=== PATIENT | female | born 1950 | race African-American/Black ===

== ENCOUNTER 2016-08-03 10:32 | Inpatient (IN) | payer OTHER ==
--- NOTE | 2016-08-03 11:27 | PDOC ---
History of Present Illness - History of Present Illness Initial Comments: 08/03/16 11:55 The patient is a 65 year old female with a past medical hx of HTN, hyperlipidemia, type 2 diabetes, s/p CVA, and asthma who presents to the ED complaining of intermittent chest pain for a few months. The patient describes her pain as a tightness localized to the substernal area radiating into her neck. She rates the pain as a 10/10 in intensity. She reports she was here for a pulmonary function test at 10:00 this morning and reported she was having chest pain. The patient was sent to the ED for further evaluation. She notes the pain has been constant since this morning and is currently having the pain while in the ED. She has not taken any Aspirin today. The patient reports the frequency of her pain does not increase with exertion. The patient notes no change in her symptoms with her nebulizer, albuterol, or MDI. She reports nausea, but denies diaphoresis, jaw pain, arm pain, SOB, fever, chills. Nuclear stress test 03/29/16 moderately sized, moderate intensity, interior/ apical ischemia, AF 86%. Two months ago the patient had a cardiac catheterization, no intervention was performed. PCP: Dr. Pace <Yanna Bailey - Last Filed: 08/03/16 12:29> <Mansoor Garay - Last Filed: 08/03/16 12:53> - General Chief Complaint: Chest Pain Stated Complaint: CHEST PAIN Time Seen by Provider: 08/03/16 11:26 Past History <Yanna Bailey - Last Filed: 08/03/16 12:29> - Past Medical History Anemia: Yes Asthma: Yes CVA: Yes (stroke/cerebral degeneration.) Dementia: No Diabetes: Yes (NIDDM) Dialysis: Yes GI Disorders: (STRICTURE OF ESOPHAGUS;GERD) Disorders: Yes (UROGENIC BLADDER) HTN: Yes Suicide Attempt (Hx): No Seizures: Yes (IN THE PAST) - Surgical History Orthopedic Surgery: Yes (ELBOW SURG; SPINAL AND NECK SURG) - Immunization History Immunization Up to Date: Yes - Psycho/Social/Smoking Cessation Hx Anxiety: No Suicidal Ideation: No Smoking History: Never smoked Have you smoked in the past 12 months: No Hx Alcohol Use: No Drug/Substance Use Hx: No Substance Use Type: None <Mansoor Garay - Last Filed: 08/03/16 12:53> - Past Medical History Allergies/Adverse Reactions: Allergies Allergy/AdvReac Type Severity Reaction Status Date / Time acetaminophen [From Vicodin] Allergy Verified 08/03/16 10:37 hydrocodone bitartrate Allergy Verified 08/03/16 10:37 [From Vicodin] oxycodone Allergy Verified 08/03/16 10:37 sulfabenzamide Allergy Verified 08/03/16 10:37 Home Medications: Ambulatory Orders Metformin HCl [Glucophage -] 500 mg PO BID #60 tablet 11/07/14 Pantoprazole Sodium [Protonix] 40 mg PO DAILY #30 tablet.dr 11/07/14 Verapamil HCl [Verapamil Sr] 240 mg PO DAILY #30 cap24h.pel 11/07/14 Gabapentin [Neurontin] 600 mg PO TID 03/23/15 Topiramate [Topamax] 100 mg PO BID 03/23/15 Hydrochlorothiazide [Hctz -] 12.5 mg PO DAILY 09/15/15 Albuterol 0.083% Nebulizer Luz Marina [Ventolin 0.083% Nebulizer Soln -] 1 neb NEB Q6H PRN 02/07/16 Ammonium Lactate Cream [Lac-Hydrin 12% Cream -] 1 applic TP BID 02/07/16 Biotin 1 mg PO DAILY 02/07/16 Cetirizine HCl [Zyrtec -] 10 mg PO DAILY 02/07/16 Ferrous Sulfate [Feosol] 325 mg PO DAILY 02/07/16 Ipratropium [place] [Atrovent] 15 ml NS BID 02/07/16 Lisinopril [Zestril] 2.5 mg PO DAILY 02/07/16 Multivitamin [Poly-Vitamin] 1 each PO DAILY 02/07/16 Sumatriptan Succinate [Imitrex -] 25 mg PO DAILY 02/07/16 Aspirin [ASA -] 81 mg PO DAILY 08/03/16 [place]-3 Fatty Acids [[place]-3] 1,000 mg PO DAILY 08/03/16 Review of Systems - Review of Systems Able to Perform ROS?: Yes Comments:: 08/03/16 11:56 CONSTITUTIONAL: Absent: fever, chills, diaphoresis, generalized weakness, malaise, loss of appetite HEENT: Absent: rhinorrhea, nasal congestion, throat pain, throat swelling, difficulty swallowing, mouth swelling, ear pain, eye pain, visual Changes CARDIOVASCULAR: +Chest pain (tightness). Absent: syncope, palpitations, irregular heart rate, lightheadedness, peripheral edema RESPIRATORY: Absent: cough, shortness of breath, dyspnea with exertion, orthopnea, wheezing, stridor, hemoptysis GASTROINTESTINAL: +Nausea. Absent: abdominal pain, abdominal distension, vomiting, diarrhea, constipation, melena, hematochezia GENITOURINARY: Absent: dysuria, frequency, urgency, hesitancy, hematuria, flank pain, genital pain MUSCULOSKELETAL: +Neck pain. Absent: jaw pain, arm pain, joint swelling SKIN: Absent: rash, itching, pallor HEMATOLOGIC/IMMUNOLOGIC: Absent: easy bleeding, easy bruising, lymphadenopathy, frequent infections ENDOCRINE: Absent: unexplained weight gain, unexplained weight loss, heat intolerance, cold intolerance NEUROLOGIC: Absent: headache, focal weakness or paresthesias, dizziness, unsteady gait, seizure, mental status changes, bladder or bowel incontinence PSYCHIATRIC: Absent: anxiety, depression, suicidal or homicidal ideation, hallucinations. <Yanna Bailey - Last Filed: 08/03/16 12:29> *Physical Exam - Vital Signs Last Vital Signs Temp Pulse Resp BP Pulse Ox 97.9 F 71 19 124/57 98 08/03/16 10:37 08/03/16 10:37 08/03/16 10:37 08/03/16 10:37 08/03/16 10:37 - Physical Exam Comments: 08/03/16 11:56 GENERAL: Well developed, well nourished. Awake and alert. In no acute distress. HEENT: Normocephalic, atraumatic. PERRLA, EOMI. No conjunctival pallor. Sclera are non- icteric. Moist mucous membranes. Oropharynx is clear. NECK: Supple. Full ROM. No JVD. Carotid pulses 2+ and symmetric, without bruits. No thyromegaly. No lymphadenopathy. CARDIOVASCULAR: Regular rate and rhythm. No murmurs, rubs, or gallops. Distal pulses are 2+ and symmetric. PULMONARY: +Fine crackles at the bilateral bases. No evidence of respiratory distress. No wheezing. ABDOMINAL: Soft. Non-tender. Non-distended. No rebound or guarding. No organomegaly. Normoactive bowel sounds. MUSCULOSKELETAL Normal range of motion at all joints. No bony deformities or tenderness. No CVA tenderness. EXTREMITIES: No cyanosis. No clubbing. No edema. No calf tenderness. SKIN: Warm and dry. Normal capillary refill. No rashes. No jaundice. NEUROLOGICAL: Alert, awake, appropriate. Cranial nerves 2-12 intact. No deficits to light touch and temperature in face, upper extremities and lower extremities. No motor deficits in the in face, upper extremities and lower extremities. PSYCHIATRIC: Cooperative. Good eye contact. Appropriate mood and affect. <Yanna Bailey - Last Filed: 08/03/16 12:29> - Vital Signs Last Vital Signs Temp Pulse Resp BP Pulse Ox 97.9 F 71 19 124/57 98 08/03/16 10:37 08/03/16 10:37 08/03/16 10:37 08/03/16 10:37 08/03/16 10:37 <Mansoor Garay - Last Filed: 08/03/16 12:53> Heart Score/ECG Review - History History: Moderately suspicious - Electrocardiogram EKG: Normal - Age Age: 45-65 - Risk Factors Risk Factors Heart Score: Yes Hx Hypercholesterolemia, Yes Hx Hypertension, Yes Hx Diabetes Based on the list above the patient has:: >/=3 risk factors or Hx atherosclerotic disease - Troponin Troponin: </= normal limit - Score Heart Score - Total: 4 - ECG Intrepretation Comment:: 08/03/16 12:03 Normal sinus rhythm at 66, normal axis, normal intervals, no ST changes <Mansoor Garay - Last Filed: 08/03/16 12:53> ED Treatment Course - LABORATORY CBC & Chemistry Diagram: 08/03/16 11:50 08/03/16 11:50 <Yanna Bailey - Last Filed: 08/03/16 12:29> - LABORATORY CBC & Chemistry Diagram: 08/03/16 11:50 08/03/16 11:50 <Mansoor Garay - Last Filed: 08/03/16 12:53> Medical Decision Making - Medical Decision Making 08/03/16 12:[address] Genao via answering service, awaiting call back. <Yanna Bailey - Last Filed: 08/03/16 12:29> - Medical Decision Making 03/09/17 11:39 The patient is well-appearing and in no acute distress She reports very clearly that she had chest pain when her EKG was obtained She currently has chest pain Will initiate chest pain order set Will administer aspirin Will administer sublingual nitroglycerin Will consult cardiology 08/03/16 12:12 Chest pain has completely resolved after sublingual nitroglycerin Will apply Nitropaste and follow carefully 08/03/16 12:52 She remains chest pain-free Labs noted, including negative troponin Clinical impression: Chest pain, possible acute coronary syndrome Case discussed in detail with admitting provider including history, physical exam and ancillary studies. Admitting physician has assumed care for the patient, will follow all pending diagnostics and will complete the evaluation and treatment. A portion of this note was documented by scribe services under my direction. I have reviewed the details of the note, within reason, and agree with the documentation with the following case summary and management plan written by me. <Mansoor Garay - Last Filed: 08/03/16 12:53> *DC/Admit/Observation/Transfer - Attestations Scribe Attestion: 08/03/16 11:55 Documentation prepared by Yanna Bailey, acting as paramedical aide for Mansoor Garay MD/DO. <Yanna Bailey - Last Filed: 08/03/16 12:29> - Discharge Dispostion Admit: Yes <Mansoor Garay - Last Filed: 08/03/16 12:53> Diagnosis at time of Disposition: Chest pain - Referrals Referrals: Karey Beard MD [Primary Care Provider] -
[2016-08-03] MEDS ORDERED: ASPIRIN 81 MG CHEWABLE TABLETS PO ONE (11:28)
[2016-08-03] MEDS ORDERED: NITROGLYCERIN SUBLINGUAL 1/150 0.4 MG TAB SL ONE (11:39)
[2016-08-03] MEDS ORDERED: ASPIRIN 81 MG CHEWABLE TABLETS ONE (11:59)
[2016-08-03] MEDS ORDERED: NITROGLYCERIN 2% OINTMENT - 1GM PACKET TD ONE (12:11)
[2016-08-03 12:16] LABS: MCH 30.8 pg (25.7-33.7); MEAN CELL VOLUME 93.2 fl (80-96); MEAN PLT VOLUME 7.9 fl (7.5-11.1); PLATELET COUNT 266 K/MM3 (134-434); RDW 13.8 % (11.6-15.6); WHITE BLOOD COUNT 6.6 K/mm3 (4.0-10.0)
[2016-08-03 12:27] LABS: ALBUMIN 4.2 g/dl (3.4-5.0); ANION GAP 10 (8-16); CALCIUM 9.7 mg/dL (8.5-10.1); CO2 25 mmol/L (21-32); GLUCOSE,RANDOM 77 mg/dL (74-106); MAGNESIUM 2.3 mg/dL (1.8-2.4); SGPT/ALT 27 U/L (12-78)
[2016-08-03 12:30] LABS: INR 1.03 (0.82-1.09); PROTHROMBIN TIME (PATIENT) 11.3 SEC (9.98-11.88)
[2016-08-03 12:32] LABS: ALK PHOS 55 U/L (45-117); BILIRUBIN,TOTAL 0.4 mg/dL (0.2-1.0); TOT PROT 8.1 g/dl (6.4-8.2); TROPONIN I < 0.02 ng/ml (0.00-0.05)
[2016-08-03 12:34] LABS: SGOT/AST 37 U/L (15-37)
[2016-08-03 14:01] LABS: PLATELET ESTIMATE ADEQUATE (NORMAL)
[2016-08-03] MEDS ORDERED: MAG HYDROX/AL HYDROX/SIMETH 355 ML ORAL.SUSP PO ONE (14:29)
--- NOTE | 2016-08-03 14:42 | CON.CARD ---
Consult Consult Specialty:: cardiology Reason for Consultation:: chest pain - History of Present Illness History of Present Illness: The patient is a 65 year old black female with a past medical hx of CVA (in her 20s), s/p cervical spine fusion, HTN, hyperlipidemia, DM,and asthma, who presents to the ED complaining of intermittent chest pain for a few months. The patient describes her pain as a tightness localized to the substernal area radiating into her neck. She rates the pain as a 10/10 in intensity. She reports she was here for a pulmonary function test at 10:00 this morning and reported she was having chest pain. The patient was sent to the ED for further evaluation. She notes the pain has been constant since this morning and is currently having the pain while in the ED. She has not taken any Aspirin today. The patient reports the frequency of her pain does not increase with exertion. The patient notes no change in her symptoms with her nebulizer, albuterol, or MDI. She has had a history of dysphagia (?hx esophageal stricture) for years. She reports nausea, but denies diaphoresis, jaw pain, arm pain, SOB, fever, chills. Nuclear stress test 03/29/16 moderately sized, moderate intensity, interior/ apical ischemia, AF 86%. Two months ago the patient had a cardiac catheterization; no intervention was performed (multi-vessel non-obstructive CAD). PCP: ELADIO Gibbs. 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 Cardio/Vascular: Yes: HTN Gastrointestinal: Yes: GERD Reproductive: Yes: Postmenopausal ...: No Endocrine: Yes: Diabetes Mellitus - Alcohol/Substance Use Hx Alcohol Use: No - Smoking History Smoking history: Never smoked Have you smoked in the past 12 months: No Home Medications - Allergies Allergies/Adverse Reactions: Allergies Allergy/AdvReac Type Severity Reaction Status Date / Time acetaminophen [From Vicodin] Allergy Verified 08/03/16 10:37 hydrocodone bitartrate Allergy Verified 08/03/16 10:37 [From Vicodin] oxycodone Allergy Verified 08/03/16 10:37 sulfabenzamide Allergy Verified 08/03/16 10:37 - Home Medications Home Medications: Ambulatory Orders Metformin HCl [Glucophage -] 500 mg PO BID #60 tablet 11/07/14 Pantoprazole Sodium [Protonix] 40 mg PO DAILY #30 tablet. 11/07/14 Verapamil HCl [Verapamil Sr] 240 mg PO DAILY #30 cap24h.pel 11/07/14 Gabapentin [Neurontin] 600 mg PO TID 03/23/15 Topiramate [Topamax] 100 mg PO BID 03/23/15 Hydrochlorothiazide [Hctz -] 12.5 mg PO DAILY 09/15/15 Albuterol 0.083% Nebulizer Luz Marina [Ventolin 0.083% Nebulizer Soln -] 1 neb NEB Q6H PRN 02/07/16 Ammonium Lactate Cream [Lac-Hydrin 12% Cream -] 1 applic TP BID 02/07/16 Biotin 1 mg PO DAILY 02/07/16 Cetirizine HCl [Zyrtec -] 10 mg PO DAILY 02/07/16 Ferrous Sulfate [Feosol] 325 mg PO DAILY 02/07/16 Ipratropium [place] [Atrovent] 15 ml NS BID 02/07/16 Lisinopril [Zestril] 2.5 mg PO DAILY 02/07/16 Multivitamin [Poly-Vitamin] 1 each PO DAILY 02/07/16 Sumatriptan Succinate [Imitrex -] 25 mg PO DAILY 02/07/16 Aspirin [ASA -] 81 mg PO DAILY 08/03/16 [place]-3 Fatty Acids [[place]-3] 1,000 mg PO DAILY 08/03/16 Review of Systems - Review of Systems Constitutional: reports: Weakness, Other (chest pain) Eyes: reports: No Symptoms HENT: reports: No Symptoms Neck: reports: No Symptoms Cardiovascular: reports: Chest Pain Respiratory: reports: Exercise Intolerance Gastrointestinal: reports: Dysphagia Musculoskeletal: reports: Decreased ROM, Muscle Weakness Neurological: reports: Pre-Existing Deficit, Unsteady Gait, Weakness Psychiatric: reports: Anxiety - Risk Factors Known Risk Factors: Yes: Age, Hypercholesterolemia, Hypertension, Prior IA /Emb Stroke, Race Vital Signs: Vital Signs Temperature 97.9 F 08/03/16 10:37 Pulse Rate 71 08/03/16 10:37 Respiratory Rate 19 08/03/16 10:37 Blood Pressure 124/57 08/03/16 10:37 O2 Sat by Pulse Oximetry (%) 98 08/03/16 10:37 Constitutional: Yes: Anxious Eyes: Yes: WNL HENT: Yes: WNL Neck: Yes: Decreased ROM Respiratory: Yes: Regular Gastrointestinal: Yes: Soft Renal/: No: Anuria Cardiovascular: Yes: Regular Rate and Rhythm JVD: No Carotid Bruit: No PMI: Non-Displaced Heart Sounds: Yes: S1, S2 Murmur: Yes: Systolic Murmur, Grade 2 Musculoskeletal: Yes: Joint Stiffness, Muscle Weakness Extremities: Yes: Cool Edema: No Peripheral Pulses WNL: No Peripheral Pulses: 1+ Left Doralis Pedis, 1+ Right Dorsalis Pedis Integumentary: No: Rash Neurological: Yes: Alert, Oriented, Weakness Psychiatric: Yes: Alert, Oriented - Other Data Labs, Other Data: INR, PTT INR 1.03 (0.82-1.09) 08/03/16 11:50 Laboratory Results - last 24 hr 08/03/16 08/03/16 08/03/16 11:50 11:50 11:50 WBC 6.6 RBC 3.93 Hgb 12.1 Hct 36.7 MCV 93.2 MCHC 33.0 RDW 13.8 Plt Count 266 MPV 7.9 Neutrophils % 17.0 L D Lymphocytes % 75.0 H D Monocytes % 3.0 L Eosinophils % 2.0 Basophils % 1.0 Differential Comment Manual diff done Reactive Lymphocytes 2 Platelet Estimate Adequate INR 1.03 Sodium 139 Potassium 5.0 Chloride 104 Carbon Dioxide 25 Anion Gap 10 BUN 21 H D Creatinine 1.0 D Creat Clearance w eGFR 55.82 Random Glucose 77 D Calcium 9.7 Magnesium 2.3 Total Bilirubin 0.4 AST 37 ALT 27 Alkaline Phosphatase 55 Creatine Kinase 434 H D CK-MB (CK-2) 6.441 H Troponin I < 0.02 Total Protein 8.1 Albumin 4.2 Abnormal Lab Results 08/03/16 08/03/16 11:50 11:50 Neutrophils % 17.0 L D Lymphocytes % 75.0 H D Monocytes % 3.0 L BUN 21 H D Creatine Kinase 434 H D CK-MB (CK-2) 6.441 H Ejection Fraction %: LVEF > or = 40 % Imaging - Results Chest X-ray: Image Reviewed (no acute pathology) EKG: Image Reviewed (normal sinus rhythm; no acute ST-T changes) Problem List - Problems (1) Chest pain Assessment/Plan: atypical presentation; constant, related to swallowing. Denies radiation to the back. non-obstructive CAD on 03/2016 coronary angiogram (no mention of aortic disease) . TNI 0.02; f/u serially. F/u lipids (with diabetes, will likely benefit from statin). EKG WNL. CXR: no acute pathology; no mediastinal widening. Hx cervical spine fusion. F/u GI workup: ?hx esophageal stricture. Consider CTA or MRA chest, though doubt aortic pathology. Code(s): R07.9 - CHEST PAIN, UNSPECIFIED (2) Esophageal stricture Assessment/Plan: F/u with GI. Code(s): K22.2 - ESOPHAGEAL OBSTRUCTION (3) Chronic abdominal pain Code(s): R10.9 - UNSPECIFIED ABDOMINAL PAIN G89.29 - OTHER CHRONIC PAIN (4) Chronic headache Code(s): R51 - HEADACHE (5) Diabetes mellitus Assessment/Plan: On lisinopril (CAD/CVA, HTN, DM). Code(s): E11.9 - TYPE 2 DIABETES MELLITUS WITHOUT COMPLICATIONS Qualifiers: Diabetes mellitus type: type 2 Diabetes mellitus complication status: without complication Diabetes mellitus fdc insulin use: without fdc use Qualified Code(s): E11.9 - Type 2 diabetes mellitus without complications (6) Head injury due to trauma Code(s): S09.90XA - UNSPECIFIED INJURY OF HEAD, INITIAL ENCOUNTER Qualifiers: Encounter type: initial encounter Qualified Code(s): S09.90XA - Unspecified injury of head, initial encounter (7) Hypertensive cardiovascular disease Code(s): I11.9 - HYPERTENSIVE HEART DISEASE WITHOUT HEART FAILURE Qualifiers: Heart failure presence: without heart failure Qualified Code(s): I11.9 - Hypertensive heart disease without heart failure
[2016-08-03] MEDS ORDERED: MAG HYDROX/AL HYDROX/SIMETH 30 ML UNIT-DOSE CUP ONE (14:59)
--- NOTE | 2016-08-03 15:55 | EKG ---
Test Reason : Blood Pressure : / mmHG Vent. Rate : 068 BPM Atrial Rate : 068 BPM P-R Int : 188 ms QRS Dur : 080 ms QT Int : 388 ms P-R-T Axes : 070 018 048 degrees QTc Int : 412 ms POOR DATA QUALITY, INTERPRETATION MAY BE ADVERSELY AFFECTED NORMAL SINUS RHYTHM NORMAL ECG WHEN COMPARED WITH ECG OF 08-FEB-2016 05:03, NO SIGNIFICANT CHANGE WAS FOUND Confirmed by INGA SCHAEFFER, DYLON ([id number]) on 08/03/2016 3:55:13 PM Referred By: Confirmed By:DYLON XIONG MD
--- NOTE | 2016-08-03 15:56 | HP ---
CHIEF COMPLAINT: Chest pain PCP: Dr. Pace HISTORY OF PRESENT ILLNESS: This is a 65 year old female with a significant PMH of HTN, HDL, nonobstructive CAD, DM type 2, S/P CVA, asthma, GERD, esophageal stricture who presents with chest pain. She has been complaining of chest pain for several months. It is intermittent, lasting 20 min., 10/10. It is located in mid chest, pressure like , radiating to the neck, associated with SOB and nausea.It is aggravated by lying flat and relieved with albuterol nebulizer. She had cardiac catheterization done in May 2016 but no intervention was done. Today she came to the hospital for PFT and her chest pain and SOB was much worse so she was brought to ED. The pt states that her pain is often associated with eating. She denies dizziness, cough, fever, but states that she has chills now. She denies dysuria, increased frequency, urgency, vomiting, diarrhea. ER course was notable for: (1)EKG (2)CK and CK MGB (3)BUN PAST MEDICAL HISTORY: HTN, HDL, CAD, DM type 2, S/P CVA in her 20s, asthma, GERD, esophageal stricture , chronic migraines, urogenic bladder PAST SURGICAL HISTORY: hysterectomy Social History: Smoking:Denies Alcohol:Denies Drugs:Denies Family History: Mother: Lung Ca Father; Stroke Brother; Stroke Brother: Brain aneurysm Allergies acetaminophen [From Vicodin] Allergy (Verified 08/03/16 10:37) unknown hydrocodone bitartrate [From Vicodin] Allergy (Verified 08/03/16 10:37) unknown oxycodone Allergy (Verified 08/03/16 10:37) head aches sulfabenzamide Allergy (Verified 08/03/16 10:37) hives HOME MEDICATIONS: Home Medications Medication Instructions Recorded Metformin HCl [Glucophage -] 500 mg PO BID #60 tablet 11/07/14 Pantoprazole Sodium [Protonix] 40 mg PO DAILY #30 tablet. 11/07/14 Verapamil HCl [Verapamil Sr] 240 mg PO DAILY #30 cap24h.pel 11/07/14 Gabapentin [Neurontin] 600 mg PO TID 03/23/15 Topiramate [Topamax] 100 mg PO BID 03/23/15 Hydrochlorothiazide [Hctz -] 12.5 mg PO DAILY 04/20/16 Albuterol 0.083% Nebulizer Luz [place] 1 neb NEB Q6H PRN 02/07/16 [Ventolin 0.083% Nebulizer Soln -] Ammonium Lactate Cream [Lac-Hydrin 1 applic TP BID 02/07/16 12% Cream -] Biotin 1 mg PO DAILY 02/07/16 Cetirizine HCl [Zyrtec -] 10 mg PO DAILY 02/07/16 Ferrous Sulfate [Feosol] 325 mg PO DAILY 02/07/16 Ipratropium [place] [Atrovent] 15 ml NS BID 02/07/16 Lisinopril [Zestril] 2.5 mg PO DAILY 02/07/16 Multivitamin [Poly-Vitamin] 1 each PO DAILY 02/07/16 Sumatriptan Succinate [Imitrex -] 25 mg PO DAILY 02/07/16 Aspirin [ASA -] 81 mg PO DAILY 08/03/16 [place]-3 Fatty Acids [[place]-3] 1,000 mg PO DAILY 08/03/16 REVIEW OF SYSTEMS CONSTITUTIONAL: chills Absent: fever, diaphoresis, generalized weakness, malaise, loss of appetite, weight change HEENT: Absent: rhinorrhea, nasal congestion, throat pain, difficulty swallowing, visual changes CARDIOVASCULAR: chest pain, Absent: syncope, palpitations, irregular heart rate, lightheadedness, peripheral edema RESPIRATORY: Absent: cough, shortness of breath, dyspnea with exertion, orthopnea, wheezing, stridor, hemoptysis GASTROINTESTINAL: nausea Absent: abdominal pain, abdominal distension, vomiting, diarrhea, constipation, melena, hematochezia GENITOURINARY: Absent: dysuria, frequency, urgency, hesitancy, hematuria, flank pain, genital pain MUSCULOSKELETAL: Absent: myalgia, arthralgia, joint swelling, back pain, neck pain SKIN: Absent: rash, itching, pallor ENDOCRINE: Absent: unexplained weight gain, unexplained weight loss, heat intolerance, cold intolerance NEUROLOGIC: Absent: headache, focal weakness or paresthesias, dizziness, unsteady gait, seizure, mental status changes, bladder or bowel incontinence PSYCHIATRIC: Absent: anxiety, depression PHYSICAL EXAMINATION GENERAL: Awake, alert, and fully oriented, in no acute distress. HEAD: Normal with no signs of trauma. EYES: Pupils equal, round and reactive to light, extraocular movements intact, sclera anicteric, conjunctiva clear. No lid lag. EARS, NOSE, THROAT: Ears normal, nares patent, oropharynx clear without exudates. Moist mucous membranes. NECK: Normal range of motion, supple without lymphadenopathy, JVD, or masses. LUNGS: Breath sounds equal, clear to auscultation bilaterally. No wheezes, and no crackles. No accessory muscle use. HEART: Regular rate and rhythm, normal S1 and S2 without murmur, rub or gallop. ABDOMEN: Soft, nontender, not distended, normoactive bowel sounds, no guarding, no rebound, no masses. No hepatomegaly or splenomegaly. MUSCULOSKELETAL: Normal range of motion at all joints. No CVA tenderness. UPPER EXTREMITIES: warm, No peripheral edema. LOWER EXTREMITIES: warm, No peripheral edema. NEUROLOGICAL: speaking slowly, no facial asymmetry, no tongue deviation, motor: 5/5 in all 4 extremities, sensation intact. PSYCHIATRIC: Cooperative. Good eye contact. Appropriate mood and affect. SKIN: Warm, dry, normal turgor, no rashes, vertical scar in lower abdomen. ASSESSMENT/PLAN: This is a 65 year old female with a significant PMH of HTN, HDL, nonobstructive CAD, DM type 2, S/P CVA, asthma, GERD, esophageal stricture who presents with chest pain. She has been complaining of chest pain for several months. It is intermittent, lasting 20 min., associated with SOB, nausea. It is located in mid chest, radiating to the neck. It is aggravated by lying flat and relieved with albuterol nebulizer. Chest pain -possible ACS/Asthma exacerbation -HEART score 4 -will follow Dr. Genao's recommendation -telemetry monitoring -monitor troponins -minitor vitals -cont ASA, Lisinopril and Verapamil -Oxygen Suppl. Asthma; -continue nebulizers HTN: cont home meds: Verapamil, HCTZ, Lisinopril DM type 2: -RISS -BGM -hold Metformin HDL: cont omega 3 Chronic headaches: cont Topiramate 100 mg PO BID F/E/N: no/No changes/Low Na Disposition: observation tele Please confirm the medication list. 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 - New Patient This patient is new to me today: Yes Date on this admission: 08/04/16 - Critical Care Critical Care patient: No
--- NOTE | 2016-08-03 16:06 | PN ---
Teaching Attending Note Name of Resident: Virgen Ruiz ATTENDING PHYSICIAN STATEMENT I saw and evaluated the patient. I reviewed the resident's note and discussed the case with the resident. I agree with the resident's findings and plan as documented. SUBJECTIVE: This is a 65-year-old woman with a history of non-obstructive CAD, HTN, hyperlipdemia, type 2 DM, asthma, CVA, GERD who comes to the ER today complaining of tightness in her chest with nausea and shortness of breath on and off for several weeks. She was scheduled for PFTs today, and while there, she complained of chest pain, so she was sent to the ER. Her institutional research coordinator is Dr. Corey and her livestock speculator is Dr. Genao. OBJECTIVE: Vital Signs Period Temp Pulse Resp BP Sys/Hewitt Pulse Ox Last 24 Hr 97.9 F 71 19 124/57 98 HEART: S1 S2, RRR LUNGS: Clear ABDOMEN: Soft, non-tender, non-distended, normal BS EXTREMITIES: No edema ASSESSMENT AND PLAN: 1. Chest pain in a patient with non-obstructive CAD by catheterization 2 months ago - Observe on telemetry - Continue aspirin, Verapamil, Lisinopril - Serial troponins - Cardiology consult 2. Hypertension - Continue Verapamil, Lisinopril, HCTZ 3. Hyperlipidemia - Continue omega-3 4. Type 2 diabetes mellitus - Hold metformin - Fingersticks with Novolog sliding scale 5. Asthma - Albuterol nebs as needed
[2016-08-03] MEDS ORDERED: ALBUTEROL SO4 0.083% IH SOL 2.5 MG/3 ML VIAL.NEB. NEB PRN (17:55)
[2016-08-03 18:20] VITALS: BMI 27.1
[2016-08-03] MEDS ORDERED: INFLUENZA VACCINE 45 MCG/0.5 ML (MDV 16-17) IM ONE (18:30)
[2016-08-03] MEDS ORDERED: TOPIRAMATE 100 MG TABLET PO ONE (18:35)
--- NOTE | 2016-08-03 21:16 | CONSULT ---
Consult Consult Specialty:: Pulm/CCM Reason for Consultation:: chest pain - History of Present Illness Chief Complaint: chest pain History of Present Illness: This is a 65 yo woman HTN, IDDM c/b neuropathy, HL, CVA, asthma and esophageal stricture with chronic chest pain who presented from pulmonary clinic with complaints of 10/10 substernal chest pain radiating to her neck. Per patient she has been experiencing this intermittent recurrent chest pain for several months. She felt it may be related to esophageal stricture given increased trouble with swallowing but the pain and eating ant always temporally related. On day of admission she was being seen in pulmonary clinic for planned PFTs when she described this recurrent chest pain and was sent to the ED for evaluation. In the ED she ? nausea, CP and RAY. Denied: diaphoresis, jaw pain, arm pain, SOB, fever, chills. Per patient she recently had a cardiac cath that did not require intervention. Labs notable for negative troponin, normal WBC. CXR: clear. EKG: NSR. She was admitted to ICU for telemetry monitoring. Patient seen and examined in the ICU. VSS: HR 84 RRR, BP 100/65, RR 14 RA sat 96 %. On exam ? 6/10 pain that has improved from admission with morphine. - History Source History Provided By: Patient, Medical Record - Past Medical History DATAPOWER DEVELOPER: Yes: CVA Cardio/Vascular: Yes: HTN Pulmonary: Yes: Asthma Gastrointestinal: Yes: GERD, Other (esophageal stricture) ...: No Endocrine: Yes: Diabetes Mellitus - Alcohol/Substance Use Hx Alcohol Use: No - Smoking History Smoking history: Never smoked Have you smoked in the past 12 months: No Home Medications - Allergies Allergies/Adverse Reactions: Allergies Allergy/AdvReac Type Severity Reaction Status Date / Time acetaminophen [From Vicodin] Allergy Verified 08/03/16 10:37 hydrocodone bitartrate Allergy Verified 08/03/16 10:37 [From Vicodin] oxycodone Allergy Verified 08/03/16 10:37 sulfabenzamide Allergy Verified 08/03/16 10:37 - Home Medications Home Medications: Ambulatory Orders Metformin HCl [Glucophage -] 500 mg PO BID #60 tablet 11/07/14 Pantoprazole Sodium [Protonix] 40 mg PO DAILY #30 tablet. 11/07/14 Verapamil HCl [Verapamil Sr] 240 mg PO DAILY #30 cap24h.pel 11/07/14 Gabapentin [Neurontin] 600 mg PO TID 03/23/15 Topiramate [Topamax] 100 mg PO BID 03/23/15 Hydrochlorothiazide [Hctz -] 12.5 mg PO DAILY 09/15/15 Albuterol 0.083% Nebulizer [place] [Ventolin 0.083% Nebulizer Soln -] 1 neb NEB Q6H PRN 02/07/16 Ammonium Lactate Cream [Lac-Hydrin 12% Cream -] 1 applic TP BID 02/07/16 Biotin 1 mg PO DAILY 02/07/16 Cetirizine HCl [Zyrtec -] 10 mg PO DAILY 02/07/16 Ferrous Sulfate [Feosol] 325 mg PO DAILY 02/07/16 Ipratropium [place] [Atrovent] 15 ml NS BID 02/07/16 Lisinopril [Zestril] 2.5 mg PO DAILY 02/07/16 Multivitamin [Poly-Vitamin] 1 each PO DAILY 02/07/16 Sumatriptan Succinate [Imitrex -] 25 mg PO DAILY 02/07/16 Aspirin [ASA -] 81 mg PO DAILY 08/03/16 [place]-3 Fatty Acids [[place]-3] 1,000 mg PO DAILY 08/03/16 Review of Systems - Review of Systems Constitutional: reports: No Symptoms ( intermittent neck pain) Cardiovascular: reports: Chest Pain Respiratory: reports: No Symptoms Gastrointestinal: reports: Nausea Genitourinary: reports: No Symptoms Physical Exam Vital Signs: Vital Signs Temperature 97.5 F L 08/03/16 18:09 Pulse Rate 68 08/03/16 18:09 Respiratory Rate 16 08/03/16 20:10 Blood Pressure 133/65 08/03/16 18:09 O2 Sat by Pulse Oximetry (%) 100 08/03/16 20:10 Current Medications Albuterol Sulfate (Ventolin 0.083% Nebulizer Soln -) 1 amp NEB Q6H PRN PRN Reason: WHEEZING Aspirin (Asa -) 81 mg PO DAILY KIM Gabapentin (Neurontin -) 600 mg PO TID KIM Hydrochlorothiazide (Hctz -) 12.5 mg PO DAILY KIM Lisinopril (Prinivil) 2.5 mg PO DAILY KIM Non-Formulary Medication (Ipratropium [place] [Atrovent]) 15 ml NS BID KIM Pantoprazole Sodium (Protonix -) 40 mg PO DAILY KIM Sumatriptan Succinate (Imitrex -) 25 mg PO DAILY PRN PRN Reason: MIGRAINE Topiramate (Topamax -) 50 mg PO BID KIM Verapamil HCl (Calan Sr -) 240 mg PO DAILY KIM Constitutional: Yes: No Distress, Calm Eyes: Yes: Conjunctiva Clear, EOM Intact HENT: Yes: Normocephalic Cardiovascular: Yes: Regular Rate and Rhythm, S1, S2 Respiratory: Yes: CTA Bilaterally Gastrointestinal: Yes: Normal Bowel Sounds, Soft Extremities: Yes: WNL Edema: No Neurological: Yes: Alert, Oriented Labs: CBCD WBC 6.6 K/mm3 (4.0-10.0) 08/03/16 11:50 RBC 3.93 M/mm3 (3.60-5.2) 08/03/16 11:50 Hgb 12.1 GM/dL (10.7-15.3) 08/03/16 11:50 Hct 36.7 % (32.4-45.2) 08/03/16 11:50 MCV 93.2 fl (80-96) 08/03/16 11:50 MCHC 33.0 g/dl (32.0-36.0) 08/03/16 11:50 RDW 13.8 % (11.6-15.6) 08/03/16 11:50 Plt Count 266 K/MM3 (134-434) 08/03/16 11:50 MPV 7.9 fl (7.5-11.1) 08/03/16 11:50 CMP Sodium 139 mmol/L (136-145) 08/03/16 11:50 Potassium 5.0 mmol/L (3.5-5.1) 08/03/16 11:50 Chloride 104 mmol/L (98-107) 08/03/16 11:50 Carbon Dioxide 25 mmol/L (21-32) 08/03/16 11:50 Anion Gap 10 (8-16) 08/03/16 11:50 BUN 21 mg/dL (7-18) H D 08/03/16 11:50 Creatinine 1.0 mg/dL (0.55-1.02) D 08/03/16 11:50 Creat Clearance w eGFR 55.82 (>60) 08/03/16 11:50 Random Glucose 77 mg/dL (74-106) D 08/03/16 11:50 Calcium 9.7 mg/dL (8.5-10.1) 08/03/16 11:50 Total Bilirubin 0.4 mg/dL (0.2-1.0) 08/03/16 11:50 AST 37 U/L (15-37) 08/03/16 11:50 ALT 27 U/L (12-78) 08/03/16 11:50 Alkaline Phosphatase 55 U/L (45-117) 08/03/16 11:50 Total Protein 8.1 g/dl (6.4-8.2) 08/03/16 11:50 Albumin 4.2 g/dl (3.4-5.0) 08/03/16 11:50 CARDIAC ENZYMES Creatine Kinase 434 IU/L (26-192) H D 08/03/16 11:50 Troponin I < 0.02 ng/ml (0.00-0.05) 08/03/16 11:50 Imaging - Results Chest X-ray: Report Reviewed, Image Reviewed EKG: Report Reviewed, Image Reviewed Problem List - Problems (1) Chest pain Code(s): R07.9 - CHEST PAIN, UNSPECIFIED (2) Chronic abdominal pain Code(s): R10.9 - UNSPECIFIED ABDOMINAL PAIN G89.29 - OTHER CHRONIC PAIN (3) Chronic headache Code(s): R51 - HEADACHE (4) Diabetes mellitus Code(s): E11.9 - TYPE 2 DIABETES MELLITUS WITHOUT COMPLICATIONS Qualifiers: Diabetes mellitus type: type 2 Diabetes mellitus complication status: without complication Diabetes mellitus solar energy sales specialist insulin use: without solar energy sales specialist use Qualified Code(s): E11.9 - Type 2 diabetes mellitus without complications (5) Esophageal stricture Code(s): K22.2 - ESOPHAGEAL OBSTRUCTION Assessment/Plan a/p: 65 yo woman HTN, IDDM c/b neuropathy, CVA, asthma p/w recurrent intermittent chronic CP of unclear etiology: CV vs GI. Does not appear to have exacerbation of asthma at this time. -telemonitoring -cardiology following -GISSELLE: troponin x3 -cont ASA and antihypertensives -possible GI etiology of chronic CP given h/o esophageal stricture, consider upper GI series -glucose control -DVT prophylaxis -PPI given h/o GERD -incentive geri -albuterol prn for wheeze -pain control: home gabapentin for DM related neuropathy Sandip ACNP Pulm/CCM CCT: 35
[2016-08-03] MEDS ORDERED: IPRATROPIUM BROMIDE NS SCH (22:00)
[2016-08-03] MEDS ORDERED: TOPIRAMATE 100 MG TABLET PO SCH ×2 (22:00)
[2016-08-03] MEDS: GABAPENTIN 300 MG CAPSULE (FP) PO SCH (23:25)
[2016-08-03] MEDS: SUMAtriptan SUCCINATE 25 MG TABLET PO PRN (23:56)
[2016-08-04 05:48] LABS: BASOPHIL 1.2 % (0-2.0); EOSINOPHIL 2.7 % (0-4.5); MCH 31.2 pg (25.7-33.7); MCHC 33.9 g/dl (32.0-36.0); NEUTROPHILS 36.9 % (42.8-82.8); PLATELET COUNT 287 K/MM3 (134-434); RDW 13.3 % (11.6-15.6); WHITE BLOOD COUNT 4.8 K/mm3 (4.0-10.0)
[2016-08-04] MEDS ORDERED: PT OWN MED DRAWER 7, Y5N ONE ×2 (05:57→08:29)
[2016-08-04] MEDS: SUMAtriptan SUCCINATE 25 MG TABLET PO PRN (05:58)
[2016-08-04] MEDS: GABAPENTIN 300 MG CAPSULE (FP) PO SCH ×3 (05:58→22:38)
[2016-08-04 06:14] LABS: CALCIUM 9.5 mg/dL (8.5-10.1); CHOLESTEROL 189 mg/dL (50-200); LDL CHOLESTEROL (ONLY SJRH) 105 mg/dL (5-100)
[2016-08-04] MEDS ORDERED: METOPROLOL TARTRATE 25 MG TABLET (FP) ONE (08:31)
[2016-08-04] MEDS: ASPIRIN 81 MG CHEWABLE TABLETS PO SCH (09:20)
[2016-08-04] MEDS: VERAPAMIL HCL 240 MG E.R. TABLET (FP) PO SCH (09:20)
[2016-08-04] MEDS: PANTOPRAZOLE 40 MG TABLET (FP) PO SCH (09:21)
[2016-08-04] MEDS: TOPIRAMATE 100 MG TABLET PO SCH ×3 (09:21→23:38)
[2016-08-04] MEDS: HYDROCHLOROTHIAZIDE 12.5 MG CAPSULE (FP) PO SCH (09:21)
[2016-08-04] MEDS: LISINOPRIL 5 MG TABLET (FP) PO SCH (09:21)
--- NOTE | 2016-08-04 09:44 | EKG ---
Test Reason : Blood Pressure : / mmHG Vent. Rate : 081 BPM Atrial Rate : 081 BPM P-R Int : 192 ms QRS Dur : 084 ms QT Int : 370 ms P-R-T Axes : 074 017 048 degrees QTc Int : 429 ms NORMAL SINUS RHYTHM NORMAL ECG WHEN COMPARED WITH ECG OF 03-AUG-2016 10:50, NO SIGNIFICANT CHANGE WAS FOUND Confirmed by FRANK BEAULIEU MD ([id number]) on 08/04/2016 9:43:39 AM Referred By: Confirmed By:FRANK BEAULIEU MD
[2016-08-04 11:02] LABS: ANION GAP 7 (8-16); CALCIUM 9.6 mg/dL (8.5-10.1); CO2 28 mmol/L (21-32); GLUCOSE,RANDOM 154 mg/dL (74-106); MAGNESIUM 2.1 mg/dL (1.8-2.4); PHOSPHOROUS 3.2 mg/dL (2.5-4.9)
[2016-08-04 11:04] LABS: TROPONIN I < 0.02 ng/ml (0.00-0.05)
[2016-08-04 12:46] LABS: TROPONIN I < 0.02 ng/ml (0.00-0.05)
--- NOTE | 2016-08-04 13:08 | PN ---
Progress Note (short form) - Note Progress Note: Patient seen and examined in the ICU. Awake and alert. CP seems to have resolved. No SOB. Suspicion of esophageal spasm being the etiology of her symptoms. Intake & Output 08/01/16 08/02/16 08/03/16 08/04/16 23:59 23:59 23:59 23:59 Intake Total 200 200 Output Total 800 Balance 200 -600 Weight 158 lb 8.198 oz Last Vital Signs Temp Pulse Resp BP Pulse Ox 97.6 F 88 26 H 137/87 100 08/04/16 00:47 08/04/16 09:17 08/04/16 09:17 08/04/16 09:17 08/03/16 20:10 Active Medications Albuterol Sulfate (Ventolin 0.083% Nebulizer Soln -) 1 amp NEB Q6H PRN PRN Reason: WHEEZING Aspirin (Asa -) 81 mg PO DAILY [facility] Last Admin: 08/04/16 09:20 Dose: 81 mg Gabapentin (Neurontin -) 600 mg PO TID [facility] Last Admin: 08/04/16 05:58 Dose: 600 mg Hydrochlorothiazide (Hctz -) 12.5 mg PO DAILY [facility] Last Admin: 08/04/16 09:21 Dose: 12.5 mg Insulin Aspart (Novolog Vial Sliding Scale -) 1 vial SQ ACHS [facility] PRN Reason: Protocol Lisinopril (Prinivil) 2.5 mg PO DAILY [facility] Last Admin: 08/04/16 09:21 Dose: 2.5 mg Non-Formulary Medication (Ipratropium [place] [Atrovent]) 15 ml NS BID [facility] Pantoprazole Sodium (Protonix -) 40 mg PO DAILY [facility] Last Admin: 08/04/16 09:21 Dose: 40 mg Sumatriptan Succinate (Imitrex -) 25 mg PO DAILY PRN PRN Reason: MIGRAINE Last Admin: 08/04/16 05:58 Dose: 25 mg Topiramate (Topamax -) 50 mg PO BID [facility] Last Admin: 08/04/16 09:21 Dose: 50 mg Verapamil HCl (Calan Sr -) 240 mg PO DAILY [facility] Last Admin: 08/04/16 09:20 Dose: 240 mg Constitutional: Yes: Awake and alert, NAD Eyes: Yes: Conjunctiva Clear, EOM Intact HENT: Yes: Normocephalic Cardiovascular: Yes: Regular Rate and Rhythm, S1, S2 Respiratory: Yes: CTA Bilaterally Gastrointestinal: Yes: Normal Bowel Sounds, Soft Extremities: Yes: WNL Edema: No Neurological: Yes: Alert, Oriented Labs: Laboratory Results - last 24 hr 08/03/16 08/04/16 08/04/16 11:50 00:18 05:00 WBC 4.8 RBC 3.59 L Hgb 11.2 Hct 33.0 MCV 92.0 MCHC 33.9 RDW 13.3 Plt Count 287 MPV 8.0 Neutrophils % 17.0 L D 36.9 L D Lymphocytes % 75.0 H D 49.6 H D Monocytes % 3.0 L 9.6 D Eosinophils % 2.0 2.7 Basophils % 1.0 1.2 Differential Comment Manual diff done Reactive Lymphocytes 2 Platelet Estimate Adequate Sodium Potassium Chloride Carbon Dioxide Anion Gap BUN Creatinine Random Glucose Calcium Creatine Kinase Troponin I < 0.02 Triglycerides Cholesterol Total LDL Cholesterol HDL Cholesterol 08/04/16 08/04/16 08/04/16 05:00 05:00 11:59 WBC RBC Hgb Hct MCV MCHC RDW Plt Count MPV Neutrophils % Lymphocytes % Monocytes % Eosinophils % Basophils % Differential Comment Reactive Lymphocytes Platelet Estimate Sodium 142 Potassium 4.2 Chloride 106 Carbon Dioxide 26 Anion Gap 10 BUN 20 H Creatinine 1.0 Random Glucose 102 D Calcium 9.5 Creatine Kinase 299 H D Troponin I < 0.02 Triglycerides 67 Cholesterol 189 Total LDL Cholesterol 105 H HDL Cholesterol 78 H CXR: Clear Problem List - Problems (1) Chest pain Code(s): R07.9 - CHEST PAIN, UNSPECIFIED (2) Chronic abdominal pain Code(s): R10.9 - UNSPECIFIED ABDOMINAL PAIN G89.29 - OTHER CHRONIC PAIN (3) Chronic headache Code(s): R51 - HEADACHE (4) Diabetes mellitus Code(s): E11.9 - TYPE 2 DIABETES MELLITUS WITHOUT COMPLICATIONS Qualifiers: Diabetes mellitus type: type 2 Diabetes mellitus complication status: without complication Diabetes mellitus intermission coordinator insulin use: without residential use Qualified Code(s): E11.9 - Type 2 diabetes mellitus without complications (5) Esophageal stricture Code(s): K22.2 - ESOPHAGEAL OBSTRUCTION Assessment/Plan GI consult -> Patient is known to Dr Pat O2 as needed BD TX PRN Continue current meds VTE prophylaxis PPI ordered Incentive spirometry Telemetry monitoring Dr Zapata
--- NOTE | 2016-08-04 14:18 | PN ---
Progress Note, Physician History of Present Illness: The patient is a 65 year old black female with a past medical hx of CVA (in her 20s), s/p cervical spine fusion, HTN, hyperlipidemia, DM,and asthma, who presents to the ED complaining of intermittent chest pain for a few months. The patient describes her pain as a tightness localized to the substernal area radiating into her neck. She rates the pain as a 10/10 in intensity. She reports she was here for a pulmonary function test at 10:00 this morning and reported she was having chest pain. The patient was sent to the ED for further evaluation. She notes the pain has been constant since this morning and is currently having the pain while in the ED. She has not taken any Aspirin today. The patient reports the frequency of her pain does not increase with exertion. The patient notes no change in her symptoms with her nebulizer, albuterol, or MDI. She has had a history of dysphagia (?hx esophageal stricture) for years. She reports nausea, but denies diaphoresis, jaw pain, arm pain, SOB, fever, chills. Nuclear stress test 03/29/16 moderately sized, moderate intensity, interior/ apical ischemia, AF 86%. Two months ago the patient had a cardiac catheterization; no intervention was performed (multi-vessel non-obstructive CAD). PCP: ELADIO Gibbs. - Current Medication List Current Medications: Active Medications Albuterol Sulfate (Ventolin 0.083% Nebulizer Soln -) 1 amp NEB Q6H PRN PRN Reason: WHEEZING Aspirin (Asa -) 81 mg PO DAILY [facility] Last Admin: 08/04/16 09:20 Dose: 81 mg Gabapentin (Neurontin -) 600 mg PO TID KIM Last Admin: 08/04/16 05:58 Dose: 600 mg Hydrochlorothiazide (Hctz -) 12.5 mg PO DAILY [facility] Last Admin: 08/04/16 09:21 Dose: 12.5 mg Insulin Aspart (Novolog Vial Sliding Scale -) 1 vial SQ ACHS [facility] PRN Reason: Protocol Lisinopril (Prinivil) 2.5 mg PO DAILY [facility] Last Admin: 08/04/16 09:21 Dose: 2.5 mg Non-Formulary Medication (Ipratropium [place] [Atrovent]) 15 ml NS BID [facility] Pantoprazole Sodium (Protonix -) 40 mg PO DAILY [facility] Last Admin: 08/04/16 09:21 Dose: 40 mg Sumatriptan Succinate (Imitrex -) 25 mg PO DAILY PRN PRN Reason: MIGRAINE Last Admin: 08/04/16 05:58 Dose: 25 mg Topiramate (Topamax -) 50 mg PO BID [facility] Last Admin: 08/04/16 09:21 Dose: 50 mg Verapamil HCl (Calan Sr -) 240 mg PO DAILY [facility] Last Admin: 08/04/16 09:20 Dose: 240 mg - Objective Vital Signs: Vital Signs Temperature 97.6 F 08/04/16 00:47 Pulse Rate 88 08/04/16 09:17 Respiratory Rate 26 H 08/04/16 10:00 Blood Pressure 137/87 08/04/16 09:17 O2 Sat by Pulse Oximetry (%) 100 08/03/16 20:10 Labs: CBC, BMP 08/04/16 05:00 INR, PTT INR 1.03 (0.82-1.09) 08/03/16 11:50 Problem List - Problems (1) Chest pain Assessment/Plan: atypical presentation; constant, related to swallowing. Denies radiation to the back. non-obstructive CAD on 03/2016 coronary angiogram (no mention of aortic disease) . TNI 0.02; f/u serially. EKG WNL. CXR: no acute pathology; no mediastinal widening. Hx cervical spine fusion. F/u GI workup: ?hx esophageal stricture. Consider CTA or MRA chest, though doubt aortic pathology. Code(s): R07.9 - CHEST PAIN, UNSPECIFIED (2) Esophageal stricture Code(s): K22.2 - ESOPHAGEAL OBSTRUCTION (3) Chronic abdominal pain Code(s): R10.9 - UNSPECIFIED ABDOMINAL PAIN G89.29 - OTHER CHRONIC PAIN (4) Chronic headache Code(s): R51 - HEADACHE (5) Diabetes mellitus Code(s): E11.9 - TYPE 2 DIABETES MELLITUS WITHOUT COMPLICATIONS Qualifiers: Diabetes mellitus type: type 2 Diabetes mellitus complication status: without complication Diabetes mellitus residential insulin use: without vermin exterminator use Qualified Code(s): E11.9 - Type 2 diabetes mellitus without complications (6) Head injury due to trauma Code(s): S09.90XA - UNSPECIFIED INJURY OF HEAD, INITIAL ENCOUNTER Qualifiers: Encounter type: initial encounter Qualified Code(s): S09.90XA - Unspecified injury of head, initial encounter (7) Hypertensive cardiovascular disease Code(s): I11.9 - HYPERTENSIVE HEART DISEASE WITHOUT HEART FAILURE Qualifiers: Heart failure presence: without heart failure Qualified Code(s): I11.9 - Hypertensive heart disease without heart failure
[2016-08-04] MEDS ORDERED: oxyCODONE HCL 5 MG TABLET PO PRN (14:39)
--- NOTE | 2016-08-04 15:19 | PN ---
Physical Exam: SUBJECTIVE: Patient seen and examined Patient resting in bed, anxious about possibility of heart condition, crying. reassured patient. No acute events. afebrill and hemodynamically stable. states she keeps having chest pain after meals. States she has seen Dr Pat for EGD a few months ago, was told she has a stricture that can be treated with botox. Denies sob, palpitations, weight gain, LOC or LE edema. OBJECTIVE: Vital Signs Period Temp Pulse Resp BP Sys/Hewitt Pulse Ox Last 24 Hr 97.5 F-97.8 F 62-88 15-26 109-142/52-87 99-100 GENERAL: The patient is awake, alert, and fully oriented, anxious HEAD: Normal with no signs of trauma. EYES: PERRL, extraocular movements intact, sclera anicteric, conjunctiva clear. ENT: moist mucous membranes. NECK: supple no jvd LUNGS: Breath sounds equal, clear to auscultation bilaterally, no wheezes, no crackles, no accessory muscle use. HEART: Regular rate and rhythm, S1, S2 ABDOMEN: Soft, nontender, nondistended, normoactive bowel sounds EXTREMITIES: 2+ pulses, no edema. NEUROLOGICAL: Cranial nerves II through XII grossly intact. Normal speech, gait not observed. PSYCH: Normal mood, normal affect. SKIN: Warm, dry Laboratory Results - last 24 hr 08/04/16 08/04/16 08/04/16 00:18 05:00 05:00 WBC 4.8 RBC 3.59 L Hgb 11.2 Hct 33.0 MCV 92.0 MCHC 33.9 RDW 13.3 Plt Count 287 MPV 8.0 Neutrophils % 36.9 L D Lymphocytes % 49.6 H D Monocytes % 9.6 D Eosinophils % 2.7 Basophils % 1.2 Sodium 142 Potassium 4.2 Chloride 106 Carbon Dioxide 26 Anion Gap 10 BUN 20 H Creatinine 1.0 POC Glucometer Random Glucose 102 D Calcium 9.5 Phosphorus Magnesium Creatine Kinase CK-MB (CK-2) Troponin I < 0.02 Triglycerides Cholesterol Total LDL Cholesterol HDL Cholesterol 08/04/16 08/04/16 08/04/16 05:00 09:54 10:49 WBC RBC Hgb Hct MCV MCHC RDW Plt Count MPV Neutrophils % Lymphocytes % Monocytes % Eosinophils % Basophils % Sodium 142 Potassium 4.3 Chloride 107 Carbon Dioxide 28 Anion Gap 7 L BUN 20 H Creatinine 1.0 POC Glucometer [phone] Random Glucose 154 H D Calcium 9.6 Phosphorus 3.2 Magnesium 2.1 Creatine Kinase 264 H D CK-MB (CK-2) Troponin I < 0.02 Triglycerides 67 Cholesterol 189 Total LDL Cholesterol 105 H HDL Cholesterol 78 H 08/04/16 11:59 WBC RBC Hgb Hct MCV MCHC RDW Plt Count MPV Neutrophils % Lymphocytes % Monocytes % Eosinophils % Basophils % Sodium Potassium Chloride Carbon Dioxide Anion Gap BUN Creatinine POC Glucometer Random Glucose Calcium Phosphorus Magnesium Creatine Kinase 299 H CK-MB (CK-2) 3.714 H Troponin I < 0.02 Triglycerides Cholesterol Total LDL Cholesterol HDL Cholesterol Active Medications Generic Name Dose Route Start Last Admin Trade Name Freq PRN Reason Stop Dose Admin Albuterol Sulfate 1 amp 08/03/16 17:55 Ventolin 0.083% Nebulizer Soln - NEB Q6H PRN WHEEZING Aspirin 81 mg 08/04/16 10:00 08/04/16 09:20 Asa - PO 81 mg DAILY KIM Administration Atorvastatin Calcium 20 mg 08/04/16 22:00 Lipitor - PO HS KIM Gabapentin 600 mg 08/03/16 22:00 08/04/16 05:58 Neurontin - PO 600 mg TID KIM Administration Hydrochlorothiazide 12.5 mg 08/04/16 10:00 08/04/16 09:21 Hctz - PO 12.5 mg DAILY KIM Administration Insulin Aspart 1 vial 08/04/16 11:00 Novolog Vial Sliding Scale - SQ ACHS [facility] Protocol Lisinopril 2.5 mg 08/04/16 10:00 08/04/16 09:21 Prinivil PO 2.5 mg DAILY KIM Administration Non-Formulary Medication 15 ml 08/03/16 22:00 Ipratropium [place] [Atrovent] NS BID KIM Pantoprazole Sodium 40 mg 08/04/16 10:00 08/04/16 09:21 Protonix - PO 40 mg DAILY KIM Administration Sumatriptan Succinate 25 mg 08/03/16 18:20 08/04/16 05:58 Imitrex - PO 25 mg DAILY PRN Administration MIGRAINE Topiramate 50 mg 08/04/16 10:00 08/04/16 09:21 Topamax - PO 50 mg BID KIM Administration Verapamil HCl 240 mg 08/04/16 10:00 08/04/16 09:20 Calan Sr - PO 240 mg DAILY KIM Administration ASSESSMENT/PLAN: This is a 65 year old female with a significant PMH of HTN, HDL, nonobstructive CAD, DM type 2, S/P CVA, asthma, GERD, esophageal stricture who presents with chest pain x several months. It is joselin on by meals, intermittent, lasting 20 min, associated with SOB (anxiety), nausea, exacerbated by inhalation. History of distal esophageal stricture on EGD a few mo ago vs spasm, offered treatment with botox. Atypical chest pain -most likely due to esophageal spasm vs stricture -EGS 2 mo ago reveals stricture -unlikley ACS -negative trop x 3, negative ekg x 2, recent cath nonobstructive -cardio consult monitor in tele -telemetry monitoring -GI consult -likely d/c for outpatient gi f/u -O2 NC PRN Asthma -no exacerbation -continue nebulizers HTN: -Verapamil, HCTZ, Lisinopril DM type 2: -sliding scale -BGM -hold Metformin HDL: omega 3 Chronic headaches: Topiramate 100 mg PO BID F/E/N: no ivf lytes stable diabetic na controlled diet PPX: PPI Disposition: observation tele Problem List - Problems (1) Chest pain Code(s): R07.9 - CHEST PAIN, UNSPECIFIED (2) Esophageal stricture Code(s): K22.2 - ESOPHAGEAL OBSTRUCTION (3) Chronic abdominal pain Code(s): R10.9 - UNSPECIFIED ABDOMINAL PAIN G89.29 - OTHER CHRONIC PAIN (4) Chronic headache Code(s): R51 - HEADACHE (5) Diabetes mellitus Code(s): E11.9 - TYPE 2 DIABETES MELLITUS WITHOUT COMPLICATIONS Qualifiers: Diabetes mellitus type: type 2 Diabetes mellitus complication status: without complication Diabetes mellitus chcf insulin use: without terminologist use Qualified Code(s): E11.9 - Type 2 diabetes mellitus without complications (6) Hypertensive cardiovascular disease Code(s): I11.9 - HYPERTENSIVE HEART DISEASE WITHOUT HEART FAILURE Qualifiers: Heart failure presence: without heart failure Qualified Code(s): I11.9 - Hypertensive heart disease without heart failure Visit type - Emergency Visit Emergency Visit: Yes ED Registration Date: 08/03/16 Care time: The patient presented to the Emergency Department on the above date and was hospitalized for further evaluation of their emergent condition. - New Patient This patient is new to me today: Yes Date on this admission: 08/04/16 - Critical Care Critical Care patient: No - Discharge Referral [facility]erred [facility] Med [facility] No
--- NOTE | 2016-08-04 16:20 | PN ---
Teaching Attending Note Name of Resident: Jasmin Lynn ATTENDING PHYSICIAN STATEMENT I saw and evaluated the patient. I reviewed the resident's note and discussed the case with the resident. I agree with the resident's findings and plan as documented. SUBJECTIVE:seen at 10 am . no fever or chills, denies cp at that time . described her earlier cp as presssure , on l side with radiation to L shoulder. happens at rest , not related to exersion and sometimes after food intake. OBJECTIVE: NAD , AAOx3. CV: RRR Lungs : CTAB ext : no edema ABd : soft, NT, ND , NL BS MS : TTP over L sided chest wall ASSESSMENT AND PLAN: 65 y/o lady with h/o HTN, Asthma , CVA , , recurrent admissions with CP , recent CAth 2 months ago , reportedly with non obstructive dz, and recent EGD as out pt , who presented with chest pain . 1- Atypical CP , unlikely cardiac in origin . likely related to GI tract ( esophageal spasm , Vs GERD) . ALso , has TTP over L sided chest wall so MS etiology in DDX. - VS nl , trop Nl x 3. - last echo 02/10 mild , increased P HTN - stress in 02/10 was not complete - cath : non obstructive CAD - no further cardiac w/u indicated - cont ASA and CCB - GI consult was placed in Er. recent EGD done 2 months ago, will try to get report . - protonix 2- HTN: CCB, lisinopril , and verapamil 3- dispo : possible dc this evening
[2016-08-04] MEDS ORDERED: oxyCODONE HCL 5 MG TABLET ONE (16:50)
[2016-08-04] MEDS: INSULIN SLIDING SCALE (NOVOLOG) 1 VIAL SQ SCH ×2 (16:55→23:37)
[2016-08-04] MEDS ORDERED: traMADol HCL 50 MG TABLET PO PRN (17:07)
--- NOTE | 2016-08-04 18:33 | CON.GI ---
Consult Consult Specialty:: GASTROENTEROLOGY Reason for Consultation:: CHEST PAIN - History of Present Illness Chief Complaint: CHEST PAIN History of Present Illness: 65 YEAR OLD FEMALE WHO HAS MANY COMPLAINTS BUT LITTLE PATHOLOGY. SHE HAS KNOWN ESOPHAGEAL DYSMOTILITY AND GASTROPARESIS. UPPER ENDOSCOPY DID PROVE REFLUX BUT ESOPHAGRAM DID NOT SHOW DELAY IN PASSAGE OF BARIUM PILL. PATIENT STATES THAT WHILE HAVING PULMONARY FUNCTION TESTS SHE DEVELOPED SEVERE CHEST PAIN. SHE STATES THE PAIN (THAT SHE CAN NOT DESCRIBE) STARTED IN THE EPIGASTRIC AREA AND TRAVELED UP THE CENTER OF HER CHEST. SHE HAS HAD NO VOMITING , NO BLEEDING OR MELENA. RECENT WORKUP (2015) INCLUDED EGD, GASTRIC EMPTYING SCAN, AND ESOPHAGRAM AND A CT SCAN THAT WAS NORMAL. 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: Yes: CVA Cardio/Vascular: Yes: HTN Pulmonary: Yes: Asthma Gastrointestinal: Yes: GERD, Other (GASTROPARESIS) ...: No Endocrine: Yes: Diabetes Mellitus - Past Surgical History Past Surgical History: Yes: Upper Endoscopy - Alcohol/Substance Use Hx Alcohol Use: No - Smoking History Smoking history: Never smoked Have you smoked in the past 12 months: No Home Medications - Allergies Allergies/Adverse Reactions: Allergies Allergy/AdvReac Type Severity Reaction Status Date / Time acetaminophen [From Vicodin] Allergy Verified 08/03/16 10:37 hydrocodone bitartrate Allergy Verified 08/03/16 10:37 [From Vicodin] oxycodone Allergy Verified 08/03/16 10:37 sulfabenzamide Allergy Verified 08/03/16 10:37 - Home Medications Home Medications: Ambulatory Orders Metformin HCl [Glucophage -] 500 mg PO BID #60 tablet 11/07/14 Pantoprazole Sodium [Protonix] 40 mg PO DAILY #30 tablet. 11/07/14 Verapamil HCl [Verapamil Sr] 240 mg PO DAILY #30 cap24h.pel 11/07/14 Gabapentin [Neurontin] 600 mg PO TID 03/23/15 Topiramate [Topamax] 100 mg PO BID 03/23/15 Hydrochlorothiazide [Hctz -] 12.5 mg PO DAILY 09/15/15 Albuterol 0.083% Nebulizer Luz [place] [Ventolin 0.083% Nebulizer Soln -] 1 neb NEB Q6H PRN 02/07/16 Ammonium Lactate Cream [Lac-Hydrin 12% Cream -] 1 applic TP BID 02/07/16 Biotin 1 mg PO DAILY 02/07/16 Cetirizine HCl [Zyrtec -] 10 mg PO DAILY 02/07/16 Ferrous Sulfate [Feosol] 325 mg PO DAILY 02/07/16 Ipratropium [place] [Atrovent] 15 ml NS BID 02/07/16 Lisinopril [Zestril] 2.5 mg PO DAILY 02/07/16 Multivitamin [Poly-Vitamin] 1 each PO DAILY 02/07/16 Sumatriptan Succinate [Imitrex -] 25 mg PO DAILY 02/07/16 Aspirin [ASA -] 81 mg PO DAILY 08/03/16 [place]-3 Fatty Acids [[place]-3] 1,000 mg PO DAILY 08/03/16 Review of Systems - Review of Systems Constitutional: reports: No Symptoms Eyes: reports: No Symptoms HENT: reports: No Symptoms Neck: reports: No Symptoms Cardiovascular: reports: Chest Pain Respiratory: reports: No Symptoms Gastrointestinal: reports: Other (EPIGASTRIC PAIN TO RETROSTERNAL AREA) Genitourinary: reports: No Symptoms Musculoskeletal: reports: No Symptoms Integumentary: reports: No Symptoms Neurological: reports: No Symptoms Physical Exam-GI Vital Signs: Vital Signs Temperature 97.8 F 08/04/16 14:19 Pulse Rate 78 08/04/16 14:19 Respiratory Rate 21 08/04/16 14:19 Blood Pressure 128/52 08/04/16 14:19 O2 Sat by Pulse Oximetry (%) 100 08/03/16 20:10 Constitutional: Yes: Calm Eyes: Yes: Conjunctiva Clear HENT: Yes: Atraumatic Neck: Yes: Supple Cardiovascular: Yes: Regular Rate and Rhythm Respiratory: Yes: Regular Gastrointestinal Inspection: Yes: WNL ...Auscultate: Yes: Normoactive Bowel Sounds ...Palpate: Yes: Soft Musculoskeletal: Yes: WNL Extremities: Yes: WNL Labs: INR, PTT INR 1.03 (0.82-1.09) 08/03/16 11:50 Laboratory Tests 08/03/16 08/04/16 08/04/16 11:50 05:00 09:54 WBC 4.8 RBC 3.59 L Hgb 11.2 Hct 33.0 MCV 92.0 MCHC 33.9 RDW 13.3 Plt Count 287 MPV 8.0 Neutrophils % 36.9 L D Lymphocytes % 49.6 H D Monocytes % 9.6 D Eosinophils % 2.7 Basophils % 1.2 INR 1.03 Sodium 142 Potassium 4.3 Chloride 107 Carbon Dioxide 28 Anion Gap 7 L BUN 20 H Creatinine 1.0 Random Glucose 154 H D Calcium 9.6 Phosphorus 3.2 Magnesium 2.1 Creatine Kinase 264 H D CK-MB (CK-2) Troponin I < 0.02 08/04/16 11:59 WBC RBC Hgb Hct MCV MCHC RDW Plt Count MPV Neutrophils % Lymphocytes % Monocytes % Eosinophils % Basophils % INR Sodium Potassium Chloride Carbon Dioxide Anion Gap BUN Creatinine Random Glucose Calcium Phosphorus Magnesium Creatine Kinase 299 H CK-MB (CK-2) 3.714 H Troponin I < 0.02 Problem List - Problems (1) Chest pain Assessment/Plan: THE CHEST PAIN COULD POSSIBLY BE DUE TO REFLUX. SHE DOES NOT HAVE A STRICTURE BY HISTORY/ENDOSCOPY/IMAGING. CERTAIN MEDS CALCIUM CHANNEL BLOCKERS/GABPENTIN WILL PRODUCE WORSENING OF GASTRIC MOTILITY. I WOULD NOT CHANGE OR ADD THERAPY. I SEE NO GI REASON FOR HER TO BE IN THE ICU OR THE HOSPITAL. Code(s): R07.9 - CHEST PAIN, UNSPECIFIED (2) Gastroparesis diabeticorum Assessment/Plan: MULTIPLE SMALL MEALS Code(s): E11.43 - TYPE 2 DIABETES W DIABETIC AUTONOMIC (POLY)NEUROPATHY K31.84 - GASTROPARESIS (3) Esophageal dysmotility Code(s): K22.4 - DYSKINESIA OF ESOPHAGUS
--- NOTE | 2016-08-04 18:57 | DS ---
Physical Exam: SUBJECTIVE: Patient seen and examined Patient resting in bed, anxious about possibility of heart condition, crying. reassured patient. No acute events. afebrill and hemodynamically stable. states she keeps having chest pain after meals. States she has seen Dr Pat for EGD a few months ago, was told she has a stricture that can be treated with botox. Denies sob, palpitations, weight gain, LOC or LE edema. OBJECTIVE: Vital Signs Period Temp Pulse Resp BP Sys/Hewitt Pulse Ox Last 24 Hr 98.3 F 72 19 120/46 PHYSICAL EXAM GENERAL: The patient is awake, alert, and fully oriented, anxious HEAD: Normal with no signs of trauma. EYES: PERRL, extraocular movements intact, sclera anicteric, conjunctiva clear. ENT: moist mucous membranes. NECK: supple no jvd LUNGS: Breath sounds equal, clear to auscultation bilaterally, no wheezes, no crackles, no accessory muscle use. HEART: Regular rate and rhythm, S1, S2 ABDOMEN: Soft, nontender, nondistended, normoactive bowel sounds EXTREMITIES: 2+ pulses, no edema. NEUROLOGICAL: Cranial nerves II through XII grossly intact. Normal speech, gait not observed. PSYCH: Normal mood, normal affect. SKIN: Warm, dry LABS Laboratory Tests 08/03/16 08/04/16 08/04/16 11:50 00:18 05:00 WBC 4.8 Hgb 11.2 Hct 33.0 Plt Count 287 Sodium Potassium Chloride Carbon Dioxide Anion Gap BUN Creatinine POC Glucometer Random Glucose Calcium Phosphorus Magnesium CK-MB (CK-2) Troponin I < 0.02 < 0.02 08/04/16 08/04/16 08/04/16 09:54 10:49 11:59 WBC Hgb Hct Plt Count Sodium 142 Potassium 4.3 Chloride 107 Carbon Dioxide 28 Anion Gap 7 L BUN 20 H Creatinine 1.0 POC Glucometer 147.87460 Random Glucose 154 H D Calcium 9.6 Phosphorus 3.2 Magnesium 2.1 CK-MB (CK-2) 3.714 H Troponin I < 0.02 HOSPITAL COURSE: Date of Admission:08/04/16 This is a 65 year old female with a significant PMH of HTN, HDL, nonobstructive CAD, DM type 2, S/P CVA, asthma, GERD, esophageal stricture who presents with chest pain x several months. It is joselin on by meals, intermittent, lasting 20 min, associated with SOB (anxiety), nausea, exacerbated by inhalation. History of distal esophageal stricture on EGD a few mo ago vs spasm, offered treatment with botox. She was admitted with Atypical chest pain, most likely due to GERD. She had negative trop x 3, negative ekg x 2, recent cath was nonobstructive. cardio consult agreed its unlikley ACS. No events on telemetry. Gi consult evaluated patient. She has history of esophageal dismotility and gastropatresis.he also thought pain is due to reflux. No stricture on recent upper endoscopy. she was recommended to avoid Ca channel blockers and gabapentin to avoid worsening dismotility. Date of Discharge: 08/04/16 Minutes to complete discharge: 30 (na) Discharge Summary Reason For Visit: CHEST PAIN Current Active Problems Chest pain (Acute) Esophageal dysmotility (Acute) Esophageal stricture (Acute) Gastroparesis diabeticorum (Acute) Condition: Good - Instructions Diet, Activity, Other Instructions: you were admitted due to chest pain that occurs most likely because of reflux ( heartburn). All your heart test were negative, we recommend you follow up with a microeconomics professor and with your family doctor in a week. return if your symptoms worsen. Resume regular home medication Referrals: Karey Beard MD [Primary Care Provider] - 1 Week Demetrius Pat MD [Staff Physician] - 1 Week Disposition: HOME - Home Medications Comprehensive Discharge Medication List: Ambulatory Orders Metformin HCl [Glucophage -] 500 mg PO BID #60 tablet 11/07/14 Pantoprazole Sodium [Protonix] 40 mg PO DAILY #30 tablet. 11/07/14 Verapamil HCl [Verapamil Sr] 240 mg PO DAILY #30 cap24h.pel 11/07/14 Gabapentin [Neurontin] 600 mg PO TID 03/23/15 Topiramate [Topamax] 100 mg PO BID 03/23/15 Hydrochlorothiazide [Hctz -] 12.5 mg PO DAILY 09/15/15 Albuterol 0.083% Nebulizer Luz [place] [Ventolin 0.083% Nebulizer Soln -] 1 neb NEB Q6H PRN 02/07/16 Ammonium Lactate Cream [Lac-Hydrin 12% Cream -] 1 applic TP BID 02/07/16 Biotin 1 mg PO DAILY 02/07/16 Cetirizine HCl [Zyrtec -] 10 mg PO DAILY 02/07/16 Ferrous Sulfate [Feosol] 325 mg PO DAILY 02/07/16 Ipratropium [place] [Atrovent] 15 ml NS BID 02/07/16 Lisinopril [Zestril] 2.5 mg PO DAILY 02/07/16 Multivitamin [Poly-Vitamin] 1 each PO DAILY 02/07/16 Sumatriptan Succinate [Imitrex -] 25 mg PO DAILY 02/07/16 Aspirin [ASA -] 81 mg PO DAILY 08/03/16 [place]-3 Fatty Acids [[place]-3] 1,000 mg PO DAILY 08/03/16 Problem List - Problems (1) Chest pain Code(s): R07.9 - CHEST PAIN, UNSPECIFIED (2) Esophageal stricture Code(s): K22.2 - ESOPHAGEAL OBSTRUCTION (3) Chronic abdominal pain Code(s): R10.9 - UNSPECIFIED ABDOMINAL PAIN G89.29 - OTHER CHRONIC PAIN (4) Chronic headache Code(s): R51 - HEADACHE (5) Diabetes mellitus Code(s): E11.9 - TYPE 2 DIABETES MELLITUS WITHOUT COMPLICATIONS Qualifiers: Diabetes mellitus type: type 2 Diabetes mellitus complication status: without complication Diabetes mellitus intermediate insulin use: without termite treater helper use Qualified Code(s): E11.9 - Type 2 diabetes mellitus without complications (6) Hypertensive cardiovascular disease Code(s): I11.9 - HYPERTENSIVE HEART DISEASE WITHOUT HEART FAILURE Qualifiers: Heart failure presence: without heart failure Qualified Code(s): I11.9 - Hypertensive heart disease without heart failure This patient is new to me today: Yes Date on this admission: 08/04/16 Emergency Visit: No Critical Care patient: No - Discharge Referral Referred to [facility] Med P.C.: No
[2016-08-04] MEDS ORDERED: ATORVASTATIN CA 20 MG TABLET (FP) PO SCH (22:00)
[2016-08-05] MEDS: SUMAtriptan SUCCINATE 25 MG TABLET PO PRN ×2 (06:17→12:40)
[2016-08-05] MEDS: GABAPENTIN 300 MG CAPSULE (FP) PO SCH (06:17)
[2016-08-05] MEDS: INSULIN SLIDING SCALE (NOVOLOG) 1 VIAL SQ SCH ×2 (06:18→11:35)
[2016-08-05 06:35] VITALS: TEMP 98.2
--- NOTE | 2016-08-05 07:00 | PN ---
Progress Note (short form) - Note Progress Note: PULM/CRITICAL CARE MEDICINE PROGRESS NOTE: Patient seen and examined in the ICU. Events: GI evaluated, remained stable o/n, still having symptoms Current Medications Albuterol Sulfate (Ventolin 0.083% Nebulizer Soln -) 1 amp NEB Q6H PRN PRN Reason: WHEEZING Aspirin (Asa -) 81 mg PO DAILY [facility] Last Admin: 08/04/16 09:20 Dose: 81 mg Atorvastatin Calcium (Lipitor -) 20 mg PO HS [facility] Last Admin: 08/04/16 23:38 Dose: 20 mg Gabapentin (Neurontin -) 600 mg PO TID [facility] Last Admin: 08/05/16 06:17 Dose: 600 mg Hydrochlorothiazide (Hctz -) 12.5 mg PO DAILY [facility] Last Admin: 08/04/16 09:21 Dose: 12.5 mg Insulin Aspart (Novolog Vial Sliding Scale -) 1 vial SQ ACHS KIM PRN Reason: Protocol Last Admin: 08/05/16 06:18 Dose: Not Given Lisinopril (Prinivil) 2.5 mg PO DAILY [facility] Last Admin: 08/04/16 09:21 Dose: 2.5 mg Non-Formulary Medication (Ipratropium [place] [Atrovent]) 15 ml NS BID [facility] Pantoprazole Sodium (Protonix -) 40 mg PO DAILY [facility] Last Admin: 08/04/16 09:21 Dose: 40 mg Sumatriptan Succinate (Imitrex -) 25 mg PO DAILY PRN PRN Reason: MIGRAINE Last Admin: 08/05/16 06:17 Dose: 25 mg Topiramate (Topamax -) 50 mg PO BID [facility] Last Admin: 08/04/16 23:38 Dose: Not Given Tramadol HCl (Ultram -) 50 mg PO Q4H PRN PRN Reason: PAIN Verapamil HCl (Calan Sr -) 240 mg PO DAILY [facility] Last Admin: 08/04/16 09:20 Dose: 240 mg Vital Signs Temp 98.2 F 08/05/16 06:00 Pulse 66 08/05/16 06:00 Resp 19 08/05/16 06:00 BP 117/77 08/05/16 06:00 Pulse Ox 100 08/04/16 20:38 Intake & Output 08/04/16 08/04/16 08/05/16 06:59 18:59 06:59 Intake Total 748 513 1257 Output Total 800 Balance -543 166 4343 Intake: Oral 981 503 5898 Output: Urine 800 Void 800 Other: Voiding Method Diaper Toilet Toilet # Unmeasured Voids Void 2 3 2 Constitutional: Yes: Awake and alert, NAD Eyes: Yes: Conjunctiva Clear, EOM Intact HENT: Yes: Normocephalic Cardiovascular: Yes: Regular Rate and Rhythm, S1, S2 Respiratory: Yes: CTA Bilaterally Gastrointestinal: Yes: Normal Bowel Sounds, Soft Extremities: Yes: WNL Edema: No Neurological: Yes: Alert, Oriented Labs: CBC, BMP 08/04/16 05:00 08/04/16 09:54 Problem List - Problems (1) Chest pain Code(s): R07.9 - CHEST PAIN, UNSPECIFIED (2) Chronic abdominal pain Code(s): R10.9 - UNSPECIFIED ABDOMINAL PAIN G89.29 - OTHER CHRONIC PAIN (3) Chronic headache Code(s): R51 - HEADACHE (4) Diabetes mellitus Code(s): E11.9 - TYPE 2 DIABETES MELLITUS WITHOUT COMPLICATIONS Qualifiers: Diabetes mellitus type: type 2 Diabetes mellitus complication status: without complication Diabetes mellitus assisted insulin use: without assisted use Qualified Code(s): E11.9 - Type 2 diabetes mellitus without complications (5) Esophageal stricture Code(s): K22.2 - ESOPHAGEAL OBSTRUCTION Assessment/Plan GI consulted O2 as needed BD TX PRN Continue current meds VTE prophylaxis PPI Incentive spirometry Transfer to floor today Michael Lynn Pulm/Critical Care SOLUTION ADVISOR
[2016-08-05] MEDS ORDERED: PT OWN MED DRAWER 7, Y5N ONE (08:47)
[2016-08-05] MEDS: VERAPAMIL HCL 240 MG E.R. TABLET (FP) PO SCH (09:02)
[2016-08-05] MEDS: TOPIRAMATE 100 MG TABLET PO SCH (09:03)
[2016-08-05] MEDS: PANTOPRAZOLE 40 MG TABLET (FP) PO SCH (09:03)
[2016-08-05] MEDS: LISINOPRIL 5 MG TABLET (FP) PO SCH (09:03)
[2016-08-05] MEDS: ASPIRIN 81 MG CHEWABLE TABLETS PO SCH (09:03)
[2016-08-05] MEDS: HYDROCHLOROTHIAZIDE 12.5 MG CAPSULE (FP) PO SCH (09:03)
--- NOTE | 2016-08-05 09:24 | PN ---
Progress Note (short form) - Note Progress Note: Subjective: Vital Signs: Last Vital Signs Temp Pulse Resp BP Pulse Ox 98.2 F 59 L 22 102/79 100 08/05/16 06:00 08/05/16 07:37 08/05/16 07:37 08/05/16 07:37 08/04/16 20:38 Physical Exam: NAD , AAOx3. CV: RRR Lungs : CTAB ext : no edema ABd : soft, NT, ND , NL BS MS : TTP over L sided chest wall Laboratory Results - last 24 hr 08/04/16 08/04/16 08/04/16 09:54 10:49 11:59 Sodium 142 Potassium 4.3 Chloride 107 Carbon Dioxide 28 Anion Gap 7 L BUN 20 H Creatinine 1.0 POC Glucometer 147.31380 Random Glucose 154 H D Calcium 9.6 Phosphorus 3.2 Magnesium 2.1 Creatine Kinase 264 H D 299 H CK-MB (CK-2) 3.714 H Troponin I < 0.02 < 0.02 08/04/16 08/04/16 16:23 23:35 Sodium Potassium Chloride Carbon Dioxide Anion Gap BUN Creatinine POC Glucometer 144.77568 127.33740 Random Glucose Calcium Phosphorus Magnesium Creatine Kinase CK-MB (CK-2) Troponin I ASSESSMENT AND PLAN: 65 y/o lady with h/o HTN, Asthma , CVA , , recurrent admissions with CP , recent CAth 2 months ago , reportedly with non obstructive dz, and recent EGD as out pt , who presented with chest pain . 1- Atypical CP. likely related to GI tract ( esophageal spasm , Vs GERD) . ALso could be MS - VS nl , trop Nl x 3. - last echo 02/10 mild , increased P HTN - stress in 02/10 was not complete - cath : non obstructive CAD - no further cardiac w/u indicated - cont ASA and CCB - cont protonix 2- HTN: , lisinopril , and verapamil and HCTZ 3- dispo : was dc last night , no one was at home . will go home today Visit type - Emergency Visit Emergency Visit: No - New Patient This patient is new to me today: No - Critical Care Critical Care patient: No
[2016-08-05 11:45] VITALS: BP 121/60; PULSE 60
== END 2016-08-05 16:19 | disposition home or self-care (01) | DRG 198 ==
LOC: JER 10:32 → INTOOBSV 12:53 → JERBED 12:53 → UNDOADMOB 12:53 → JERBED 13:30 → JICU 17:40 → OBSVTOIN 08-04 17:38
PROVIDERS: ADMIT Internal Medicine; ATTEND Internal Medicine
DX: R07.89 Other chest pain (principal); I11.9 Hypertensive heart disease without heart failure; K21.9 Gastro-esophageal reflux disease without esophagitis; E78.5 Hyperlipidemia, unspecified; I25.10 Atherosclerotic heart disease of native coronary artery without angina pectoris; R10.9 Unspecified abdominal pain; G89.29 Other chronic pain; E11.9 Type 2 diabetes mellitus without complications; K22.2 Esophageal obstruction; J45.909 Unspecified asthma, uncomplicated; Z86.73 Personal history of transient ischemic attack (TIA), and cerebral infarction without residual deficits
CPT/HCPCS: 36415; 71010-TC; 80048; 80053; 80061; 82550; 82553; 83721; 83735; 84100; 84484; 85025; 85610; 93005; 93010; 99284-25; G0008; G0378; Q2037

== ENCOUNTER 2016-08-24 11:28 | Emergency (ER) | payer OTHER ==
[2016-08-24 11:35] VITALS: TEMP 98.5; BMI 27.1
[2016-08-24] MEDS ORDERED: ACETAMINOPHEN 325 MG TABLET (FP) PO ONE (12:48)
[2016-08-24] MEDS ORDERED: ONDANSETRON 4 MG/2 ML VIAL IVPB ONE (12:48)
[2016-08-24] MEDS ORDERED: ACETAMINOPHEN 325 MG TABLET (FP) ONE (12:52)
[2016-08-24] MEDS ORDERED: ONDANSETRON 4 MG/2 ML VIAL ONE (12:52)
--- NOTE | 2016-08-24 12:53 | PDOC ---
History of Present Illness - General History Source: Patient Exam Limitations: No Limitations - History of Present Illness Initial Comments: 08/24/16 13:56 The patient is a 65 year old female with a past medical hx of migraines, HTN, hyperlipidemia, type 2 diabetes, s/p CVA, nonobstructive CAD, GERD, esophageal stricture and asthma who presents to the ED accompanied by aid s/p fall since last night. Patient notes that she went to close the window last night and was walking back to her bedroom and felt off balance and fell backwards. Patient notes that she hit the back of her head on a wooden chair and she also hit her right arm and face during the fall. she thinks she may have had brief LOC. As per aid, the fall was unwitnessed. Patient notes that this morning she woke up experiencing neck pain, right sided face pain, right arm pain and back of the head pain. Patient denies any cp, sob, headache, dizziness, back pain, or other symptoms prior to her fall. She denies fever, chills, nausea, vomiting, diarrhea or constipation. Neurology - Dr. Hill PCP - Dr. Pace <Marya Herzog - Last Filed: 08/24/16 13:56> <Rodri George - Last Filed: 08/24/16 17:30> - General Chief Complaint: Injury Stated Complaint: FALL/ LUMP ON HEAD, RT SIDE PAIN Time Seen by Provider: 08/24/16 11:56 Past History <Marya Herzog - Last Filed: 08/24/16 13:56> - Past Medical History Anemia: Yes Asthma: Yes CVA: Yes (stroke/cerebral degeneration.) Dementia: No Diabetes: Yes Dialysis: Yes GI Disorders: (STRICTURE OF ESOPHAGUS;GERD) Disorders: Yes (UROGENIC BLADDER) HTN: Yes Hypercholesterolemia: Yes Suicide Attempt (Hx): No Seizures: Yes (IN THE PAST) Other medical history: ESOPHAGEAL STRICTURE - Surgical History Orthopedic Surgery: Yes (ELBOW SURG; SPINAL AND NECK SURG) - Immunization History Immunization Up to Date: Yes - Psycho/Social/Smoking Cessation Hx Anxiety: No Suicidal Ideation: No Smoking History: Never smoked Have you smoked in the past 12 months: No Information on smoking cessation initiated: No Hx Alcohol Use: No Drug/Substance Use Hx: No Substance Use Type: None Hx Substance Use Treatment: No <Rodri George - Last Filed: 08/24/16 17:30> - Past Medical History Allergies/Adverse Reactions: Allergies Allergy/AdvReac Type Severity Reaction Status Date / Time acetaminophen [From Vicodin] Allergy Verified 08/24/16 11:35 hydrocodone bitartrate Allergy Verified 08/24/16 11:35 [From Vicodin] oxycodone Allergy Verified 08/24/16 11:35 sulfabenzamide Allergy Verified 08/24/16 11:35 Home Medications: Ambulatory Orders Metformin HCl [Glucophage -] 500 mg PO BID #60 tablet 11/07/14 Pantoprazole Sodium [Protonix] 40 mg PO DAILY #30 tablet. 11/07/14 Verapamil HCl [Verapamil Sr] 240 mg PO DAILY #30 cap24h.pel 11/07/14 Gabapentin [Neurontin] 600 mg PO TID 03/23/15 Topiramate [Topamax] 50 mg PO BID 03/23/15 Hydrochlorothiazide [Hctz -] 12.5 mg PO DAILY 09/15/15 Albuterol 0.083% Nebulizer Luz Marina [Ventolin 0.083% Nebulizer Soln -] 1 neb NEB Q6H PRN 02/07/16 Ammonium Lactate Cream [Lac-Hydrin 12% Cream -] 1 applic TP BID 02/07/16 Biotin 1 mg PO DAILY 02/07/16 Cetirizine HCl [Zyrtec -] 10 mg PO DAILY 02/07/16 Ferrous Sulfate [Feosol] 325 mg PO DAILY 02/07/16 Ipratropium [place] [Atrovent] 15 ml NS BID 02/07/16 Lisinopril [Zestril] 2.5 mg PO DAILY 02/07/16 Multivitamin [Poly-Vitamin] 1 each PO DAILY 02/07/16 Sumatriptan Succinate [Imitrex -] 25 mg PO DAILY PRN 02/07/16 Aspirin [ASA -] 81 mg PO DAILY 08/03/16 [place]-3 Fatty Acids [[place]-3] 1,000 mg PO DAILY 08/03/16 Albuterol Sulfate [Proair Respiclick] 90 mcg IH TID PRN #1 aer.pow.ba 08/05/16 Linaclotide [Linzess] 0 mcg PO DAILY 08/24/16 Review of Systems - Review of Systems Able to Perform ROS?: Yes Comments:: 08/24/16 13:57 CONSTITUTIONAL: No reported: Fever, Chills, Diaphoresis, Generalized Weakness, Malaise, Loss of Appetite HEENT: No reported: Rhinorrhea, Nasal Congestion, Throat Pain, Throat Swelling, Difficulty Swallowing, Mouth Swelling, Ear Pain, Eye Pain, Visual Changes CARDIOVASCULAR: No reported: Chest Pain, Syncope, Palpitations, Irregular Heart Rate, Lightheadedness, Peripheral Edema RESPIRATORY: No reported: Cough, Shortness of Breath, SOB with Exertion, Orthopnea, Wheezing , Stridor, Hemoptysis GASTROINTESTINAL: No reported: Abdominal pain, Abdominal Distension, Nausea, Vomiting, Diarrhea, Constipation, Melena, Hematochezia GENITOURINARY: No reported: Dysuria, Frequency, Urgency, Hesitancy, Flank Pain, Genital Pain MUSCULOSKELETAL: Reported: back pain, neck pain, back of the head pain, right arm pain, right sided face pain No reported: Myalgia, Arthralgia, Joint Swelling, SKIN: No reported: Rash, Itching, Pallor HEMEATOLOGIC/IMMUNOLOGIC: No reported: Easy Bleeding, Easy Bruising, Lymphadenopathy, Frequent infections ENDOCRINE: No reported: Unexplained Weight Gain, Unexplained Weight Loss, Heat Intolerance , Cold Intolerance NEUROLOGIC: reported: Headache, No reported: Focal Weakness, Paresthesias, Vertigo, Lightheadedness, Unsteady Gait, Seizure, Mental Status Changes, Incontinence PSYCHIATRIC: No reported: Anxiety, Depression <Marya Herzog - Last Filed: 08/24/16 13:56> *Physical Exam - Vital Signs Last Vital Signs Temp Pulse Resp BP Pulse Ox 98.5 F 76 18 156/94 99 08/24/16 11:33 08/24/16 11:33 08/24/16 11:33 08/24/16 11:33 08/24/16 11:33 - Physical Exam Comments: 08/24/16 13:57 GENERAL: The patient is awake, alert, Nontoxic - in no acute distress. HEAD: Normocephalic, hematoma/contusion on R occipitum EYES: extraocular movements intact, sclera anicteric, conjunctiva clear. pupils 3mm and reactive b/l to light ENT: Normal voice, Moist mucous membranes. NECK: Normal range of motion, supple, LUNGS: Breath sounds equal, clear to auscultation bilaterally. No wheezes, no rhonchi, no rales. HEART: Regular rate and rhythm, normal S1 and S2 without murmur, rub or gallop. ABDOMEN: Soft, nontender, normoactive bowel sounds. No guarding, no rebound. . No CVA tenderness EXTREMITIES: Normal range of motion, edema in RLE>LLE, no calf tendernes, neg homans NEUROLOGICAL: No facial assymetry, Normal speech, moving all 4 extremities spontaneously and symmetrically. PSYCH: Normal mood, normal affect. SKIN: Warm, Dry, normal turgor, Back: No midline tenderness to the cervical, thoracic or lumbar spine, mild tenderness in R cervical paraspinal region\ Musculoskelatal: FROM of b/l shoulders, elbows, wrist. FROM of hips, knees, ankles - No signs of ecchymosis, erythema, or crepitus noted on palpation extremities, chest wall, clavicals, ribs, back. <Marya Herzog - Last Filed: 08/24/16 13:56> - Vital Signs Last Vital Signs Temp Pulse Resp BP Pulse Ox 98.5 F 76 18 156/94 99 08/24/16 11:33 08/24/16 11:33 08/24/16 11:33 08/24/16 11:33 08/24/16 11:33 <Rodri George - Last Filed: 08/24/16 17:30> Heart Score/ECG Review - ECG Impressions Comment:: 08/24/16 17:17 Twelve-lead EKG was performed and reviewed by me. There is normal sinus rhythm with a normal rate. rate of 65 The axis is normal. The intervals are normal. There is normal R wave progression There are no ST or T wave abnormalities. Impression: Normal twelve-lead EKG <Rodri George - Last Filed: 08/24/16 17:30> ED Treatment Course - LABORATORY CBC & Chemistry Diagram: 08/24/16 13:40 08/24/16 13:40 - Medications Given in the ED: ED Medications Discontinued Medications Generic Name Dose Route Start Last Admin Trade Name Freq PRN Reason Stop Dose Admin Acetaminophen 975 mg 08/24/16 12:48 08/24/16 13:11 Tylenol - PO 08/24/16 12:49 975 mg ONCE ONE Administration Ondansetron HCl 4 mg 08/24/16 12:48 08/24/16 13:11 Zofran Injection IVPB 08/24/16 12:49 4 mg ONCE ONE Administration <Marya Herzog - Last Filed: 08/24/16 13:56> - LABORATORY CBC & Chemistry Diagram: 08/24/16 13:40 08/24/16 13:40 - RADIOLOGY Radiology Studies Ordered: Category Date Time Status CERVICAL SPINE CT W/O CONTR [CT] Stat CT Scan 08/24/16 12:[address] WITHOUT CONTRAST [CT] Stat CT Scan 08/24/16 12:39 Ordered <ArielRodri santamaria - Last Filed: 08/24/16 17:30> Medical Decision Making - Medical Decision Making 08/24/16 12:51 65y F hx of htn, hl, dm2, cva with poor balance, asthma, presents s/p fall - the pt was ambulating to close the window this morning, an don hte way bcak, she lost her balance and hit the back of her head on the floor. She thinks there was some LOC. pt endorse some increased pain in the right neck this mornng when she got up as well as some body soreness. pt denies any preceding cp ,sob, abd pain, headache prior to falling, on exam the pt is well appearing, with a cotusion on her R occipitum and diffuse tenderness on her R cervical paraspinal region, no focal tenderness on her extermities, lower back, chest, abdomen and neurologically intact. will obtain blood work, ua to r/o anemia, metabolic derangements ua to r/o occult infection ct head/csppine to r/o fx tylenol for pain A portion of this note was documented by scribe services under my direction. I have reviewed the details of the note, within reason, and agree with the documentation with the following case summary and management plan written by me 08/24/16 17:[address] and xrays reviewed pt feeling improvedw will d/c the pt with pmd fu return precautions were discussed I discussed the physical exam findings, ancillary test results and final diagnoses with the patient. I answered all of the patient's questions. The patient was satisfied with the care received and felt comfortable with the discharge plan and treatment plan. The patient will call their primary care physician within 24 hours to arrange follow-up and will return to the Emergency Department with any new, persistent or worsening symptoms. <Rodri George - Last Filed: 08/24/16 17:30> *DC/Admit/Observation/Transfer - Attestations Scribe Attestion: 08/24/16 13:57 Documentation prepared by CICI John, acting as center medical director for Rodri George MD, /DO. <Marya Herzog - Last Filed: 08/24/16 13:56> - Discharge Dispostion Admit: No <Rodri George - Last Filed: 08/24/16 17:30> Diagnosis at time of Disposition: Contusion of scalp Qualifiers: Encounter type: initial encounter Qualified Code(s): S00.03XA - Contusion of scalp, initial encounter Closed head injury Qualifiers: Encounter type: initial encounter Qualified Code(s): S09.90XA - Unspecified injury of head, initial encounter - Referrals Referrals: Riley Mackay MD [Primary Care Provider] - - Patient Instructions Printed Discharge Instructions: DI for Closed Head Injury Additional Instructions: Return to the emergency department immediately with ANY new, persistent or worsening symptoms. You will probably be sore for the next few days. Take tylenol or ibuprofen for any soreness. Use a heating pad on your muscles. You MUST call and follow up with your doctor in 3-4 days for further evaluation of your symptoms. Results were discussed with you. Please make sure your doctor reviews the results of your emergency evaluation. Print Language: SERBIAN
[2016-08-24 13:53] LABS: BASOPHIL 0.4 % (0-2.0); EOSINOPHIL 2.2 % (0-4.5); MCH 30.7 pg (25.7-33.7); MCHC 32.9 g/dl (32.0-36.0); MEAN CELL VOLUME 93.5 fl (80-96); MEAN PLT VOLUME 8.2 fl (7.5-11.1); PLATELET COUNT 273 K/MM3 (134-434); RDW 13.3 % (11.6-15.6); WHITE BLOOD COUNT 6.6 K/mm3 (4.0-10.0)
[2016-08-24 14:13] LABS: INR 1.07 (0.82-1.09); PROTHROMBIN TIME (PATIENT) 11.8 SEC (9.98-11.88)
[2016-08-24 14:20] LABS: ALBUMIN 3.8 g/dl (3.4-5.0); ANION GAP 8 (8-16); CALCIUM 9.3 mg/dL (8.5-10.1); CO2 28 mmol/L (21-32); GLUCOSE,RANDOM 79 mg/dL (74-106)
[2016-08-24 14:21] LABS: URINE APPEARANCE CLEAR; URINE BILIRUBIN NEGATIVE (NEGATIVE); URINE BLOOD NEGATIVE (NEGATIVE); URINE COLOR STRAW; URINE GLUCOSE (UA) NEGATIVE (NEGATIVE); URINE KETONE NEGATIVE (NEGATIVE); URINE NITRITE NEGATIVE (NEGATIVE); URINE PROTEIN NEGATIVE (NEGATIVE); URINE UROBILINOGEN NEGATIVE E.U./dl (0.2-1.0)
[2016-08-24 14:24] LABS: URINE LEUK ESTERASE TRACE (NEGATIVE)
[2016-08-24 14:26] LABS: ALK PHOS 55 U/L (45-117); BILIRUBIN,TOTAL 0.3 mg/dL (0.2-1.0); CREATININE 1.1 mg/dL (0.55-1.02); SGOT/AST 20 U/L (15-37); SGPT/ALT 26 U/L (12-78); TOT PROT 7.1 g/dl (6.4-8.2); TROPONIN I < 0.02 ng/ml (0.00-0.05)
[2016-08-24 14:28] LABS: URINE RBC <1 /hpf (0-3); URINE WBC 4 /hpf (3-5)
[2016-08-24 17:20] VITALS: BP 113/57; PULSE 57
--- NOTE | 2016-08-25 11:50 | EKG ---
Test Reason : Blood Pressure : / mmHG Vent. Rate : 065 BPM Atrial Rate : 065 BPM P-R Int : 200 ms QRS Dur : 084 ms QT Int : 404 ms P-R-T Axes : 070 011 042 degrees QTc Int : 420 ms NORMAL SINUS RHYTHM WITH SINUS ARRHYTHMIA NONSPECIFIC ST ABNORMALITY WHEN COMPARED WITH ECG OF 04-AUG-2016 09:06, NO SIGNIFICANT CHANGE WAS FOUND Confirmed by FRANK BEAULIEU MD ([id number]) on 08/25/2016 11:50:38 AM Referred By: Confirmed By:FRANK BEAULIEU MD
== END 2016-08-24 17:26 | disposition home or self-care (01) ==
LOC: JER 11:28
PROC: 3E033GC Introduction of Other Therapeutic Substance into Peripheral Vein, Percutaneous Approach (ICD-10-PCS; principal; 2016-08-24)
DX: S00.03XA Contusion of scalp, initial encounter (principal); W18.39XA Other fall on same level, initial encounter; Z91.81 History of falling; Y93.89 Activity, other specified; Y92.032 Bedroom in apartment as the place of occurrence of the external cause; I25.10 Atherosclerotic heart disease of native coronary artery without angina pectoris; I10 Essential (primary) hypertension; E11.9 Type 2 diabetes mellitus without complications; Z79.84 Long term (current) use of oral hypoglycemic drugs; E78.5 Hyperlipidemia, unspecified; E78.00 Pure hypercholesterolemia, unspecified; Z86.73 Personal history of transient ischemic attack (TIA), and cerebral infarction without residual deficits; K21.9 Gastro-esophageal reflux disease without esophagitis; J45.909 Unspecified asthma, uncomplicated; K22.2 Esophageal obstruction
CPT/HCPCS: 36415; 70450-TC; 70486-TC; 72100-TC; 72125-TC; 80053; 81003; 81015; 82550; 82553; 84484; 85025; 85610; 93005; 93010; 93971-TC; 99285-25

== ENCOUNTER 2017-02-11 07:44 | Emergency (ER) | payer OTHER ==
[2017-02-11 08:00] VITALS: BP 155/71; PULSE 73; TEMP 98.2; BMI 29.5
[2017-02-11] MEDS ORDERED: SODIUM CHLORIDE 1,000 ML IV STA (08:14)
[2017-02-11] MEDS ORDERED: METOCLOPRAMIDE HCL INJECTION 10 MG/2 ML VIAL IVPB ONE (08:14)
[2017-02-11] MEDS ORDERED: KETOROLAC TROMETHAMINE 30 MG/1 ML VIAL IVPUSH ONE (08:14)
--- NOTE | 2017-02-11 08:26 | PDOC ---
History of Present Illness - General Chief Complaint: Headache Stated Complaint: NAUSEA/MIGRAINE Time Seen by Provider: 02/11/17 07:48 History Source: Patient Exam Limitations: No Limitations - History of Present Illness Initial Comments: 02/11/17 08:36 66-year-old female history of left CVA 40 years ago leaving her with left-sided weakness and with dysphagia presents with right-sided headache for 1 day which she describes a throbbing sensation unrelieved by Topamax this morning. Patient states is followed by Dr. Burns secondary to history of migraine which she states has not changed to presentation from previous episodes. Patient denies photosensitivity, phono sensitivity, visual changes but does complain of mild dizziness and nausea. Patient denies recent change in medication, recent head injury, change in speech pattern, or decreased muscle strength. Timing/Duration: reports: constant Severity: Yes: moderate Associated Symptoms: reports: nausea/vomiting (mild nausea). denies: confusion , fever/chills, slurred speech, vision changes Past History - Travel Traveled outside of the country in the last 30 days: No Close contact w/someone who was outside of country & ill: No - Past Medical History Allergies/Adverse Reactions: Allergies Allergy/AdvReac Type Severity Reaction Status Date / Time acetaminophen [From Vicodin] Allergy Verified 02/11/17 08:01 hydrocodone bitartrate Allergy Verified 02/11/17 08:01 [From Vicodin] oxycodone Allergy Verified 02/11/17 08:01 sulfabenzamide Allergy Verified 02/11/17 08:01 Home Medications: Ambulatory Orders Metformin HCl [Glucophage -] 500 mg PO BID #60 tablet 11/07/14 Pantoprazole Sodium [Protonix] 40 mg PO DAILY #30 tablet. 11/07/14 Verapamil HCl [Verapamil Sr] 240 mg PO DAILY #30 cap24h.pel 11/07/14 Gabapentin [Neurontin] 600 mg PO TID 03/23/15 Topiramate [Topamax] 50 mg PO BID 03/23/15 Hydrochlorothiazide [Hctz -] 12.5 mg PO DAILY 09/15/15 Albuterol 0.083% Nebulizer Luz [place] [Ventolin 0.083% Nebulizer Soln -] 1 neb NEB Q6H PRN 02/07/16 Ammonium Lactate Cream [Lac-Hydrin 12% Cream -] 1 applic TP BID 02/07/16 Biotin 1 mg PO DAILY 02/07/16 Cetirizine HCl [Zyrtec -] 10 mg PO DAILY 02/07/16 Ferrous Sulfate [Feosol] 325 mg PO DAILY 02/07/16 Ipratropium [place] [Atrovent] 15 ml NS BID 02/07/16 Lisinopril [Zestril] 2.5 mg PO DAILY 02/07/16 Multivitamin [Poly-Vitamin] 1 each PO DAILY 02/07/16 Sumatriptan Succinate [Imitrex -] 25 mg PO DAILY PRN 02/07/16 Aspirin [ASA -] 81 mg PO DAILY 08/03/16 [place]-3 Fatty Acids [[place]-3] 1,000 mg PO DAILY 08/03/16 Albuterol Sulfate [Proair Respiclick] 90 mcg IH TID PRN #1 aer.pow.ba 08/05/16 Linaclotide [Linzess] 0 mcg PO DAILY 08/24/16 Anemia: Yes Asthma: Yes CVA: Yes (stroke/cerebral degeneration.) Dementia: No Diabetes: Yes Dialysis: Yes GI Disorders: (STRICTURE OF ESOPHAGUS;GERD) Disorders: Yes (UROGENIC BLADDER) HTN: Yes Hypercholesterolemia: Yes Suicide Attempt (Hx): No Seizures: Yes (IN THE PAST) - Surgical History Orthopedic Surgery: Yes (ELBOW SURG; SPINAL AND NECK SURG) - Immunization History Immunization Up to Date: Yes - Psycho/Social/Smoking Cessation Hx Anxiety: No Suicidal Ideation: No Smoking History: Never smoked Have you smoked in the past 12 months: No Information on smoking cessation initiated: No Hx Alcohol Use: No Drug/Substance Use Hx: No Substance Use Type: None Hx Substance Use Treatment: No Patient Lives Alone: No Lives with/in: niece Review of Systems - Review of Systems Able to Perform ROS?: Yes Constitutional: No: Symptoms Reported HEENTM: No: Symptoms Reported Respiratory: No: Symptoms reported ABD/GI: Yes: Nausea : No: Symptoms Reported Musculoskeletal: No: Symptoms Reported Integumentary: No: Symptoms Reported Neurological: Yes: Headache, Dizziness. No: Weakness Hematologic/Lymphatic: No: Symptoms Reported *Physical Exam - Vital Signs Last Vital Signs Temp Pulse Resp BP Pulse Ox 98.2 F 73 18 155/71 94 L 02/11/17 07:58 02/11/17 07:58 02/11/17 07:58 02/11/17 07:58 02/11/17 07:58 - Physical Exam General Appearance: Yes: Nourished, Appropriately Dressed. No: Apparent Distress HEENT: positive: EOMI, ZONIA, TMs Normal, Pharynx Normal. negative: Pale Conjunctivae Neck: positive: Supple Respiratory/Chest: positive: Lungs Clear, Normal Breath Sounds. negative: Respiratory Distress, Accessory Muscle Use Cardiovascular: positive: Regular Rhythm, Regular Rate. negative: Murmur Gastrointestinal/Abdominal: positive: Soft. negative: Tenderness Extremity: positive: Normal Capillary Refill, Normal Inspection Integumentary: positive: Normal Color, Warm, Moist Neurologic: positive: Normal Mood/Affect, Motor Strength 5/5 (moves all extremeties actively) Heart Score/ECG Review - History History: Slightly suspicious - Electrocardiogram EKG: Normal - Age Age: 45-65 - Risk Factors Risk Factors Heart Score: Yes Hx Hypercholesterolemia, Yes Hx Hypertension Based on the list above the patient has:: 1-2 risk factors - Troponin Troponin: </= normal limit - Score Heart Score - Total: 2 - ECG Intrepretation Rhythm: Regular Rhythm (rate 68 normal sinus rhythm.) ED Treatment Course - LABORATORY CBC & Chemistry Diagram: 02/11/17 08:28 02/11/17 08:28 - RADIOLOGY Radiology Studies Ordered: Category Date Time Status HEAD CT WITHOUT CONTRAST [CT] Stat CT Scan 02/11/17 08:13 Ordered Medical Decision Making - Medical Decision Making 02/11/17 09:42 Patient here with complaints of right-sided headache which is similar to previous episodes of her migraine exacerbations. Patient does have history of left-sided CVA with dysphasia. Patient ordered for labs, EKG, head CT, IV fluids , Reglan and Toradol. 02/11/17 09:44 Laboratory Tests 02/11/17 02/11/17 02/11/17 08:28 08:28 09:26 WBC 5.9 Hgb 11.8 Hct 36.1 Sodium 140 Potassium 4.4 Chloride 108 H Carbon Dioxide 28 Anion Gap 4 L BUN 23 H D Creatinine 1.0 Random Glucose 105 AST 30 ALT 26 D Urine Ketones Negative Urine Urobilinogen Negative 02/11/17 12:[address] shows no intracranial pathology. Patient is currently asymptomatic. Patient will be discharged [facility] and recommendations to follow-up with her neurologist Dr. Burns. *DC/Admit/Observation/Transfer Diagnosis at time of Disposition: Migraine headache Qualifiers: Status migrainosus presence: without status migrainosus Intractability: not intractable - Discharge Dispostion Disposition: HOME Condition at time of disposition: Improved - Referrals Referrals: Karey Beard MD [Primary Care Provider] - Neda Smith MD [Staff Physician] - - Patient Instructions Printed Discharge Instructions: DI for Migraine Additional Instructions: Please take your regular medication as prescribed. May also take Fioricet for headache if symptoms return. Otherwise follow-up with your neurologist Dr. Burns .
[2017-02-11] MEDS ORDERED: KETOROLAC TROMETHAMINE 30 MG/1 ML VIAL ONE (08:31)
[2017-02-11] MEDS ORDERED: METOCLOPRAMIDE HCL INJECTION 10 MG/2 ML VIAL ONE (08:31)
[2017-02-11 08:41] LABS: MCH 30.6 pg (25.7-33.7); MCHC 32.7 g/dl (32.0-36.0); MEAN CELL VOLUME 93.7 fl (80-96); MEAN PLT VOLUME 7.9 fl (7.5-11.1); PLATELET COUNT 280 K/MM3 (134-434); RDW 13.8 % (11.6-15.6); WHITE BLOOD COUNT 5.9 K/mm3 (4.0-10.0)
[2017-02-11 09:13] LABS: ALBUMIN 3.7 g/dl (3.4-5.0); ALK PHOS 64 U/L (45-117); ANION GAP 4 (8-16); BILIRUBIN,TOTAL 0.2 mg/dL (0.2-1.0); CALCIUM 9.2 mg/dL (8.5-10.1); CO2 28 mmol/L (21-32); GLUCOSE,RANDOM 105 mg/dL (74-106); SGPT/ALT 26 U/L (12-78); TOT PROT 7.4 g/dl (6.4-8.2)
[2017-02-11 09:29] LABS: SGOT/AST 30 U/L (15-37)
[2017-02-11 09:35] LABS: URINE APPEARANCE CLEAR; URINE BILIRUBIN NEGATIVE (NEGATIVE); URINE BLOOD NEGATIVE (NEGATIVE); URINE COLOR STRAW; URINE GLUCOSE (UA) NEGATIVE (NEGATIVE); URINE KETONE NEGATIVE (NEGATIVE); URINE LEUK ESTERASE NEGATIVE (NEGATIVE); URINE NITRITE NEGATIVE (NEGATIVE); URINE PROTEIN NEGATIVE (NEGATIVE); URINE UROBILINOGEN NEGATIVE mg/dL (0.2-1.0)
[2017-02-11 10:08] LABS: BASOPHIL (MANUAL) 0 % (0-2.0); PLATELET ESTIMATE ADEQUATE (NORMAL); REACTIVE LYMPHOCYTES 3 % (0-80)
[2017-02-11] MEDS ORDERED: ACETAMINOPHEN/CAFFEINE/BUTALBITAL 1 TAB PO ONE ×2 (11:00→12:00)
[2017-02-11] MEDS ORDERED: ACETAMINOPHEN/CAFFEINE/BUTALBITAL 1 TAB ONE (11:13)
--- NOTE | 2017-02-12 14:01 | EKG ---
Test Reason : Blood Pressure : / mmHG Vent. Rate : 068 BPM Atrial Rate : 068 BPM P-R Int : 192 ms QRS Dur : 086 ms QT Int : 402 ms P-R-T Axes : 068 013 044 degrees QTc Int : 427 ms NORMAL SINUS RHYTHM NORMAL ECG WHEN COMPARED WITH ECG OF 24-AUG-2016 13:53, NO SIGNIFICANT CHANGE WAS FOUND Confirmed by RASHAWN DARLING MD ([id number]) on 02/12/2017 2:01:09 PM Referred By: Confirmed By:RASHAWN DARLING MD
== END 2017-02-11 13:43 | disposition home or self-care (01) ==
LOC: JER 07:44
PROC: 3E0337Z Introduction of Electrolytic and Water Balance Substance into Peripheral Vein, Percutaneous Approach (ICD-10-PCS; principal; 2017-02-11)
DX: G43.909 Migraine, unspecified, not intractable, without status migrainosus (principal); I10 Essential (primary) hypertension; E78.00 Pure hypercholesterolemia, unspecified; E11.9 Type 2 diabetes mellitus without complications; Z79.84 Long term (current) use of oral hypoglycemic drugs; J45.909 Unspecified asthma, uncomplicated; I69.854 Hemiplegia and hemiparesis following other cerebrovascular disease affecting left non-dominant side; I69.821 Dysphasia following other cerebrovascular disease; Z86.69 Personal history of other diseases of the nervous system and sense organs; N31.9 Neuromuscular dysfunction of bladder, unspecified
CPT/HCPCS: 36415; 70450-TC; 80053; 81003; 85025; 93005; 93010; 96360; 99283-25

== ENCOUNTER 2017-06-27 12:08 | Emergency (ER) | payer OTHER ==
[2017-06-27 12:28] VITALS: BMI 31.6
[2017-06-27] MEDS ORDERED: KETOROLAC TROMETHAMINE 30 MG/1 ML VIAL IVPUSH ONE (12:53)
--- NOTE | 2017-06-27 12:58 | PDOC ---
History of Present Illness - General Chief Complaint: Injury Stated Complaint: FALL Time Seen by Provider: 06/27/17 12:39 History Source: Patient - History of Present Illness Occurred: reports: yesterday Pain Location: reports: lower extremity, upper extremity Method of Injury: Yes: fall Past History - Past Medical History Allergies/Adverse Reactions: Allergies Allergy/AdvReac Type Severity Reaction Status Date / Time acetaminophen [From Vicodin] Allergy Mild Hives Verified 06/27/17 12:59 hydrocodone [From Vicodin] Allergy Mild Hives Verified 06/27/17 12:59 hydrocodone bitartrate Allergy Verified 06/27/17 12:27 [From Vicodin] oxycodone Allergy Verified 06/27/17 12:59 sulfabenzamide Allergy Verified 06/27/17 12:59 Home Medications: Ambulatory Orders Gabapentin [Neurontin] 400 mg PO TID 03/23/15 Topiramate [Topamax] 100 mg PO BID 03/23/15 Albuterol 0.083% Nebulizer [place] [Ventolin 0.083% Nebulizer Soln -] 1 neb NEB Q6H PRN 02/07/16 Ipratropium [place] [Atrovent] 15 ml NS BID 02/07/16 Multivitamin [Poly-Vitamin] 1 each PO DAILY 02/07/16 Albuterol Sulfate [Proair Respiclick] 90 mcg IH TID PRN #1 aer.pow.ba 08/05/16 Linaclotide [Linzess] 0 mcg PO DAILY 08/24/16 Acetaminophen/Caffeine/Butalb [Fioricet -] 1 tab PO TID PRN #12 tablet MDD 3 Lisinopril [Zestril] 2.5 mg PO DAILY 06/27/17 Mirtazapine 7.5 mg PO DAILY 06/27/17 Oxybutynin Chloride [Ditropan Xl] 5 mg PO DAILY 06/27/17 Anemia: Yes Asthma: Yes CVA: Yes (stroke/cerebral degeneration.) COPD: No Dementia: No Diabetes: No Dialysis: Yes GI Disorders: (STRICTURE OF ESOPHAGUS;GERD) Disorders: Yes (UROGENIC BLADDER) HTN: Yes Hypercholesterolemia: Yes Seizures: Yes (IN THE PAST) - Surgical History Orthopedic Surgery: Yes (ELBOW SURG; SPINAL AND NECK SURG) - Immunization History Immunization Up to Date: Yes - Suicide/Smoking/Psychosocial Hx Smoking History: Never smoked Have you smoked in the past 12 months: No Information on smoking cessation initiated: No Hx Alcohol Use: No Drug/Substance Use Hx: No Substance Use Type: None Hx Substance Use Treatment: No Review of Systems - Review of Systems Constitutional: No: Fever Respiratory: No: Cough, Shortness of Breath Cardiac (ROS): No: Chest Pain, Lightheadedness, Palpitations, Syncope ABD/GI: No: Nausea, Vomiting : No: Dysuria Musculoskeletal: Yes: Joint Pain, Joint Swelling. No: Neck Pain Neurological: No: Headache, Weakness, Dizziness *Physical Exam - Vital Signs Last Vital Signs Temp Pulse Resp BP Pulse Ox 98.1 F 73 18 132/88 100 06/27/17 12:10 06/27/17 12:10 06/27/17 12:10 06/27/17 12:10 06/27/17 12:10 - Physical Exam General Appearance: Yes: Appropriately Dressed. No: Apparent Distress HEENT: positive: Normal Voice Neck: positive: Supple Respiratory/Chest: positive: Lungs Clear, Normal Breath Sounds. negative: Respiratory Distress Cardiovascular: positive: Regular Rate, S1, S2 Gastrointestinal/Abdominal: positive: Soft. negative: Tender Musculoskeletal: positive: Normal Inspection. negative: Vertebral Tenderness Extremity: positive: Normal Inspection. negative: Tender, Swelling Integumentary: positive: Dry, Warm Neurologic: positive: Fully Oriented, Alert, Normal Mood/Affect ED Treatment Course - RADIOLOGY Radiology Studies Ordered: Category Date Time Status HEAD CT WITHOUT CONTRAST [CT] Stat CT Scan 06/27/17 12:53 Ordered CHEST X-RAY PORTABLE* [RAD] Stat Radiology 06/27/17 12:52 Ordered ELBOW-RIGHT [RAD] Stat Radiology 06/27/17 12:52 Ordered HIP & PELVIS-RIGHT [RAD] Stat Radiology 06/27/17 12:52 Ordered RIBS BILATERAL [RAD] Stat Radiology 06/27/17 12:53 Ordered SHOULDER-RIGHT [RAD] Stat Radiology 06/27/17 12:52 Ordered Medical Decision Making - Medical Decision Making 06/27/17 12:55 56-year-old female, history of CVA over 40 years ago with subsequent left-sided deficit and dysarthria, migraine, hypertension, hyperlipidemia, diabetes, nonobstructive COPD, GERD and asthma, multiple ED visits for falls ambulate with walker, brought in by nurse practitioner home assessments after patient had multiple falls as witnessed by another aid who is not currently in ED. Patient states she fell 3- 4 times at home and complaining of pain to her entire right side, especially right knee but has been able to ambulate with walker per aid who is currently in ER. Patient does not remember if she hit her head does have headache consistent with her migraines per patient. No LOC, nausea, vomiting, or focal weakness. No chest pain prior to falls yesterday. Patient states she does have a history of frequent falls and follows up with Dr. Potts of neurology, but unclear as to diagnosis. States despite using her walker, she still loses her balance. Was receiving PT in the past but has since had a change in her insurance but is planning on following up with her primary care to arrange physical therapy See exam Multiple falls yesterday Appears mechanical given hx H/o frequent falls H/o prior CVA w/ L sided deficit, walks w/ walker No dizziness/cp prior to falls No e/o serious injury in ED -XRs -CTH as unclear if hit head -labs/ekg -discuss dispo w/ PMD 06/27/17 13:33 Case s/o to resident Namita
[2017-06-27] MEDS ORDERED: METOCLOPRAMIDE HCL INJECTION 10 MG/2 ML VIAL ONE (13:12)
[2017-06-27] MEDS ORDERED: KETOROLAC TROMETHAMINE 30 MG/1 ML VIAL ONE (13:12)
[2017-06-27] MEDS ORDERED: METOCLOPRAMIDE HCL INJECTION 10 MG/2 ML VIAL IVPB ONE (13:14)
[2017-06-27 13:29] LABS: URINE APPEARANCE CLEAR; URINE BILIRUBIN NEGATIVE (NEGATIVE); URINE BLOOD NEGATIVE (NEGATIVE); URINE COLOR COLORLESS; URINE GLUCOSE (UA) NEGATIVE (NEGATIVE); URINE KETONE NEGATIVE (NEGATIVE); URINE LEUK ESTERASE NEGATIVE (NEGATIVE); URINE NITRITE NEGATIVE (NEGATIVE); URINE PROTEIN NEGATIVE (NEGATIVE); URINE UROBILINOGEN NEGATIVE mg/dL (0.2-1.0)
--- NOTE | 2017-06-27 13:35 | PDOC ---
*Physical Exam - Vital Signs Last Vital Signs Temp Pulse Resp BP Pulse Ox 98.1 F 73 18 132/88 100 06/27/17 12:10 06/27/17 12:10 06/27/17 12:10 06/27/17 12:10 06/27/17 12:10 - Physical Exam Comments: 06/27/17 13:34 The patient was examined by [DENNIS Rodríguez] under my direct supervision. I personally evaluated the patient. I concur with the above findings and the plan of care. 06/27/17 17:04 Patient 66-year-old female with history of left-sided weakness, dysarthria, diabetes, hypertension, hyperlipidemia, uses a walker at baseline who presents with right elbow, knee and pelvic pain after several mechanical falls. In the ER , patient is awake and alert, nontoxic-appearing, GCS of 15. No obvious gross deformity is noted to upper or lower extremities. Will obtain CT of head to rule out chronic/subchronic subdural hematoma. Will rule out fracture with right elbow x-ray, right shoulder x-ray, right hip and pelvic x-ray and right knee x-ray. If no fracture or dislocation is noted. Will discharge. ED Treatment Course - LABORATORY CBC & Chemistry Diagram: 06/27/17 13:48 06/27/17 13:48
--- NOTE | 2017-06-27 13:40 | PDOC ---
*Physical Exam - Vital Signs Last Vital Signs Temp Pulse Resp BP Pulse Ox 98.1 F 73 18 132/88 100 06/27/17 12:10 06/27/17 12:10 06/27/17 12:10 06/27/17 12:10 06/27/17 12:10 06/27/17 13:27 CVA with left-sided weakness and dysarthria, DM, HTN, HLD, uses walker at baseline but continues to fall, three falls yesterday which were witnessed by caregiver. Now pain on entire right side, RAY similar to her prior migraines, awaiting head CT, XR, labs, given Reglan and Toradol. Patient will need PT arranged through her PCP. ED Treatment Course - LABORATORY CBC & Chemistry Diagram: 06/27/17 13:48 06/27/17 13:48 Medical Decision Making - Medical Decision Making Imaging negative for acute pathology. Patient is appropriate for discharge home with close OP followup. Return precautions are discussed. *DC/Admit/Observation/Transfer Diagnosis at time of Disposition: Fall Qualifiers: Encounter type: initial encounter Qualified Code(s): W19.XXXA - Unspecified fall, initial encounter Closed head injury Qualifiers: Encounter type: initial encounter Qualified Code(s): S09.90XA - Unspecified injury of head, initial encounter Elbow contusion Qualifiers: Encounter type: initial encounter Laterality: unspecified laterality Qualified Code(s): S50.00XA - Contusion of unspecified elbow, initial encounter Contusion, hip Qualifiers: Encounter type: initial encounter Laterality: unspecified laterality Qualified Code(s): S70.00XA - Contusion of unspecified hip, initial encounter - Discharge Dispostion Disposition: HOME Condition at time of disposition: Stable Admit: No - Prescriptions Prescriptions: Acetaminophen [Tylenol Extra Strength] 500 mg PO QID PRN #20 tablet PRN Reason: Pain - Referrals Referrals: Ed Mcqueen MD [Staff Physician] - - Patient Instructions Printed Discharge Instructions: How to Prevent Falls, DI for Closed Head Injury Additional Instructions: Please make an appointment to see your PMD in the next 2-3 days. Please return to the ED with any further complaints. Please take tylenol for your pain. - Post Discharge Activity
[2017-06-27 14:00] LABS: BASO % 1.3 % (0-2.0); EOS % 2.5 % (0-4.5); HEMATOCRIT 39.9 % (32.4-45.2); HEMOGLOBIN 12.6 GM/dL (10.7-15.3); LYMPH % 56.8 % (8-40); MCH 29.2 pg (25.7-33.7); MCHC 31.6 g/dl (32.0-36.0); MEAN CELL VOLUME 92.4 fl (80-96); MEAN PLT VOLUME 8.5 fl (7.5-11.1); NEUT % 33.4 % (42.8-82.8); PLATELET COUNT 322 K/MM3 (134-434); RBC 4.33 M/mm3 (3.60-5.2); RDW 13.6 % (11.6-15.6); WHITE BLOOD COUNT 9.7 K/mm3 (4.0-10.0)
[2017-06-27 14:36] LABS: ANION GAP 9 (8-16); BILIRUBIN,TOTAL 0.2 mg/dL (0.2-1.0); BLOOD UREA NITROGEN 18 mg/dL (7-18); CALCIUM 9.5 mg/dL (8.5-10.1); CHLORIDE 102 mmol/L (98-107); CO2 30 mmol/L (21-32); CREATININE 1.1 mg/dL (0.55-1.02); GLUCOSE,RANDOM 93 mg/dL (74-106); SGPT/ALT 34 U/L (12-78); SODIUM 141 mmol/L (136-145); TOT PROT 7.9 g/dl (6.4-8.2)
[2017-06-27 14:40] LABS: ALK PHOS 85 U/L (45-117)
[2017-06-27 14:42] LABS: POTASSIUM 4.1 mmol/L (3.5-5.1); SGOT/AST 17 U/L (15-37)
--- NOTE | 2017-06-27 14:49 | EKG ---
Test Reason : Blood Pressure : / mmHG Vent. Rate : 067 BPM Atrial Rate : 067 BPM P-R Int : 170 ms QRS Dur : 080 ms QT Int : 394 ms P-R-T Axes : 055 012 044 degrees QTc Int : 416 ms NORMAL SINUS RHYTHM ANTERIOR INFARCT , AGE UNDETERMINED ABNORMAL ECG WHEN COMPARED WITH ECG OF 11-FEB-2017 09:03, ANTERIOR INFARCT IS NOW PRESENT Confirmed by ADRIANA SCHAEFFER, VENITA ([id number]) on 06/27/2017 2:49:29 PM Referred By: Confirmed By:VENITA RWIGHT MD
[2017-06-27 17:23] VITALS: TEMP 98
--- NOTE | 2017-06-27 18:29 | PDOC ---
*Physical Exam - Vital Signs Last Vital Signs Temp Pulse Resp BP Pulse Ox 98 F 74 18 149/73 99 06/27/17 17:22 06/27/17 17:22 06/27/17 17:22 06/27/17 17:22 06/27/17 17:22 - Physical Exam Comments: 06/27/17 18:23 gen: awake, alert, sitting up eating dinner weakness to L side ED Treatment Course - LABORATORY CBC & Chemistry Diagram: 06/27/17 13:48 06/27/17 13:48 - ADDITIONAL ORDERS Additional order review: Laboratory Results 06/27/17 06/27/17 13:48 13:18 Sodium 141 Potassium 4.1 Chloride 102 Carbon Dioxide 30 Anion Gap 9 BUN 18 Creatinine 1.1 H Creat Clearance w eGFR 49.85 Random Glucose 93 Calcium 9.5 Total Bilirubin 0.2 AST 17 ALT 34 Alkaline Phosphatase 85 Creatine Kinase 94 Troponin I < 0.02 Total Protein 7.9 Albumin 4.0 Urine Color Colorless Urine Appearance Clear Urine pH 7.0 Ur Specific [place] 1.002 Urine Protein Negative Urine Glucose (UA) Negative Urine Ketones Negative Urine Blood Negative Urine Nitrite Negative Urine Bilirubin Negative Urine Urobilinogen Negative Ur Leukocyte Esterase Negative 06/27/17 13:48 RBC 4.33 MCV 92.4 MCHC 31.6 L RDW 13.6 MPV 8.5 Neutrophils % 33.4 L Lymphocytes % 56.8 H Monocytes % 6.0 Eosinophils % 2.5 Basophils % 1.3 D - Medications Given in the ED: ED Medications Discontinued Medications Generic Name Dose Route Start Last Admin Trade Name Freq PRN Reason Stop Dose Admin Ketorolac Tromethamine 30 mg 06/27/17 12:53 06/27/17 13:34 Toradol Injection - IVPUSH 06/27/17 12:54 30 mg ONCE ONE Administration Metoclopramide HCl 10 mg 06/27/17 13:14 06/27/17 13:34 Reglan Injection - IVPB 06/27/17 13:15 10 mg ONCE ONE Administration Medical Decision Making - Medical Decision Making 06/27/17 18:24 a/p: 66yo female signed out for follow up on xrays after a fall -labs reviewed and no acute findings -xrays and ct negative for acute fractures or intracranial bleeding family at the bedside discussed lab and imaging results pt requesting to go home tolerated PO in the ED has her walker in the ED stable for d/c to home *DC/Admit/Observation/Transfer Diagnosis at time of Disposition: Fall, Closed head injury, Elbow contusion, Contusion, hip - Discharge Dispostion Disposition: HOME Condition at time of disposition: Stable Admit: No - Prescriptions Prescriptions: Acetaminophen [Tylenol Extra Strength] 500 mg PO QID PRN #20 tablet PRN Reason: Pain - Referrals Referrals: Ed Mcqueen MD [Staff Physician] - - Patient Instructions Printed Discharge Instructions: DI for Closed Head Injury, How to Prevent Falls Additional Instructions: Please make an appointment to see your PMD in the next 2-3 days. Please return to the ED with any further complaints. Please take tylenol for your pain. - Post Discharge Activity
[2017-06-27 19:14] VITALS: BP 148/72; PULSE 72
--- NOTE | 2017-06-28 11:02 | EKG ---
Test Reason : Blood Pressure : / mmHG Vent. Rate : 065 BPM Atrial Rate : 065 BPM P-R Int : 186 ms QRS Dur : 076 ms QT Int : 390 ms P-R-T Axes : 059 005 032 degrees QTc Int : 405 ms NORMAL SINUS RHYTHM NORMAL ECG WHEN COMPARED WITH ECG OF 27-JUN-2017 12:30, CRITERIA FOR ANTERIOR INFARCT ARE NO LONGER PRESENT Confirmed by DYLON XIONG MD ([id number]) on 06/28/2017 11:02:02 AM Referred By: Confirmed By:DYLON XIONG MD
== END 2017-06-27 20:00 | disposition home or self-care (01) ==
LOC: JER 12:08
PROC: 3E0333Z Introduction of Anti-inflammatory into Peripheral Vein, Percutaneous Approach (ICD-10-PCS; principal; 2017-06-27)
PROC: 3E033GC Introduction of Other Therapeutic Substance into Peripheral Vein, Percutaneous Approach (ICD-10-PCS; 2017-06-27)
DX: S09.90XA Unspecified injury of head, initial encounter (principal); S50.01XA Contusion of right elbow, initial encounter; W18.39XA Other fall on same level, initial encounter; Y93.89 Activity, other specified; Y92.89 Other specified places as the place of occurrence of the external cause; Z91.81 History of falling; Z86.73 Personal history of transient ischemic attack (TIA), and cerebral infarction without residual deficits; Z99.89 Dependence on other enabling machines and devices; I10 Essential (primary) hypertension; E78.00 Pure hypercholesterolemia, unspecified; J45.909 Unspecified asthma, uncomplicated; Z99.2 Dependence on renal dialysis
CPT/HCPCS: 36415; 70450-TC; 71045-TC; 71111-TC; 73030-TC-RT; 73070-TC-RT; 73523-TC; 80053; 81003; 82550; 84484; 85025; 93005; 93010; 96374; 96375; 99283-25

== ENCOUNTER 2017-09-19 17:11 | Inpatient (IN) | payer OTHER ==
--- NOTE | 2017-09-19 17:21 | PDOC ---
Rapid Medical Evaluation Chief Complaint: Asthma Medical Evaluation: Allergies Allergy/AdvReac Type Severity Reaction Status Date / Time acetaminophen [From Vicodin] Allergy Mild Hives Verified 09/19/17 17:14 hydrocodone [From Vicodin] Allergy Mild Hives Verified 09/19/17 17:14 hydrocodone bitartrate Allergy Verified 09/19/17 17:14 [From Vicodin] oxycodone Allergy Verified 09/19/17 17:14 sulfabenzamide Allergy Verified 09/19/17 17:14 Vital Signs Temp Pulse Resp BP Pulse Ox 98.7 F 86 22 138/63 99 09/19/17 17:16 09/19/17 17:16 09/19/17 17:16 09/19/17 17:16 09/19/17 17:16 09/19/17 17:19 I have performed a brief in-person evaluation of this patient. The patient presents with a chief complaint of: hx of asthma, sent by PCP, sharp pain in back Pertinent physical exam findings: VSS I have ordered the following: labs, cxr, ekg The patient will proceed to the ED for further evaluation. Discharge Disposition - Diagnosis Asthma - Referrals - Patient Instructions - Post Discharge Activity
--- NOTE | 2017-09-19 18:57 | PDOC ---
Attending Attestation - HPI HPI: 09/19/17 20:53 The patient is a 66 year old female with past medical history of Chronic headaches, Chronic abdominal pain, type 2 diabetes, hypertension, hyperlipidemia , CVA (left-sided weakness), CAD (patient states angiogram done showing plaques which were cleared) and GERD, Abdominal cancer and asthma presents to the emergency department with SOB, chest discomfort with cough and abdominal pain. The patient states shes been experiencing these symptoms for the past 1 month with no relief. The patient reports associated symptoms of subjective fever, chills, cold and hot sensations, cough with clear phlegm. The patient reports she unable to eat due to congestion. The patient reports shes been having diarrheal bowel movements. The patient states her buildings been under construction for the past couple of weeks. The patient denies headache and dizziness. Denies nausea, vomit, and constipation. Denies dysuria, frequency, urgency and hematuria. Allergies: acetaminophen, hydrocodone bitartrate, oxycodone, sulfabenzamide. Social History: None reported. PCP: [facility] - Physicial Exam PE: 09/19/17 20:22 GENERAL: Awake, alert, and fully oriented, in no acute distress HEAD: No signs of trauma EYES: PERRLA, EOMI, sclera anicteric, conjunctiva clear ENT: Auricles normal inspection, hearing grossly normal, nares patent, oropharynx clear without exudates. Moist mucosa NECK: Normal ROM, supple, no lymphadenopathy, JVD, or masses LUNGS: (+) diminished. No wheezing. clear to auscultation bilaterally. no crackles HEART: Regular rate and rhythm, normal S1 and S2, no murmurs, rubs or gallops ABDOMEN: (+) Epigastric tenderness, no rebound or guarding. Soft, normoactive bowel sounds. No masses EXTREMITIES: Normal range of motion, no edema. No clubbing or cyanosis. No cords, erythema, or tenderness NEUROLOGICAL: Cranial nerves II through XII grossly intact. Normal speech, normal gait SKIN: Warm, Dry, normal turgor, no rashes or lesions noted. - Medical Decision Making 09/19/17 20:53 Documentation prepared by Char Stephen, acting as medical claims processor for Kristine Long DO. <Char Stephen - Last Filed: 09/19/17 21:36> - Resident Resident Name: Elissa Caro - ED Attending Attestation I have performed the following: I have examined & evaluated the patient, The case was reviewed & discussed with the resident, I agree w/resident's findings & plan, Exceptions are as noted - Medical Decision Making 09/19/17 18:57 I, Dr. Kristine Long, DO, attest that this document has been prepared under my direction and personally reviewed by me in its entirety. I further attest, that it accurately reflects all work, treatment, procedures and medical decision -making performed by me. 09/19/17 20:23 a/p: 66yo female with subjective fevers and productive cough -hx of asthma -recent construction in her building -epigastric pain -suspect GERD vs gastritis for abd pain -suspect asthma exacerbation vs reactive airway disease from bronchitis -will check labs, cxr -nebs, steroids, azithro, gi cocktail -will monitor and reassess 09/19/17 21:08 trop negative 09/19/17 22:11 cbc reviewed pt still with CP will keep in obs for further eval, hx of CAD s/p angio in the past heart score 5 09/19/17 22:15 pt accepted for obs by [facility] <Kristine Long - Last Filed: 09/19/17 22:16> Heart Score/ECG Review - ECG Intrepretation Comment:: 09/19/17 21:08 sinus tach at 102, nl axis, nl interval, no acute st/t wave findings <Kristine Long - Last Filed: 09/19/17 22:16>
--- NOTE | 2017-09-19 19:11 | PDOC ---
History of Present Illness - General Chief Complaint: Asthma Stated Complaint: PCP SENT/ASTHMA Time Seen by Provider: 09/19/17 18:40 History Source: Patient, Family Exam Limitations: No Limitations - History of Present Illness Initial Comments: This is a 66 YOF with h/o asthma, CAD (patient states angiogram done showing plaques which were cleared), HTN, HLD, nonobstructive CAD, NIDDM, S/P CVA, GERD , and esophageal stricture who p/w SOB and cough for the past month, worsened in the past week and especially today. She additionally notes diffuse 9/10 chest soreness only when she coughs today, radiating to her arms, neck, and back. She notes chills and abdominal pain, but no swelling, fever, nausea, vomiting, diarrhea, constipation, dysuria, headache, vision change, dizziness/ lightheadedness, LOC, or other symptoms. She additionally notes her normal level of upper abdominal pain which she attributes to GERD. Past History - Past Medical History Allergies/Adverse Reactions: Allergies Allergy/AdvReac Type Severity Reaction Status Date / Time acetaminophen [From Vicodin] Allergy Mild Hives Verified 09/19/17 17:14 hydrocodone [From Vicodin] Allergy Mild Hives Verified 09/19/17 17:14 hydrocodone bitartrate Allergy Verified 09/19/17 17:14 [From Vicodin] oxycodone Allergy Verified 09/19/17 17:14 sulfabenzamide Allergy Verified 09/19/17 17:14 Home Medications: Ambulatory Orders Gabapentin [Neurontin] 400 mg PO TID 03/23/15 Topiramate [Topamax] 100 mg PO BID 03/23/15 Albuterol 0.083% Nebulizer [place] [Ventolin 0.083% Nebulizer Soln -] 1 neb NEB Q6H PRN 02/07/16 Ipratropium [place] [Atrovent] 15 ml NS BID 02/07/16 Multivitamin [Poly-Vitamin] 1 each PO DAILY 02/07/16 Albuterol Sulfate [Proair Respiclick] 90 mcg IH TID PRN #1 aer.pow.[email or web address] 08/05/16 Linaclotide [Linzess] 0 mcg PO DAILY 08/24/16 Acetaminophen/Caffeine/Butalb [Fioricet -] 1 tab PO TID PRN #12 tablet MDD 3 Acetaminophen [Tylenol Extra Strength] 500 mg PO QID PRN #20 tablet 06/27/17 Lisinopril [Zestril] 2.5 mg PO DAILY 06/27/17 Mirtazapine 7.5 mg PO DAILY 06/27/17 Oxybutynin Chloride [Ditropan Xl] 5 mg PO DAILY 06/27/17 Anemia: Yes Asthma: Yes CVA: Yes (stroke/cerebral degeneration.) COPD: No Dementia: No Diabetes: No Dialysis: Yes GI Disorders: (STRICTURE OF ESOPHAGUS;GERD) Disorders: Yes (UROGENIC BLADDER) HTN: Yes Hypercholesterolemia: Yes Seizures: Yes (IN THE PAST) - Surgical History Orthopedic Surgery: Yes (ELBOW SURG; SPINAL AND NECK SURG) - Immunization History Immunization Up to Date: Yes - Suicide/Smoking/Psychosocial Hx Smoking History: Never smoked Have you smoked in the past 12 months: No Information on smoking cessation initiated: No Hx Alcohol Use: No Drug/Substance Use Hx: No Substance Use Type: None Hx Substance Use Treatment: No Review of Systems - Review of Systems Able to Perform ROS?: Yes Constitutional: Yes: Chills. No: Fever, Unexplained wgt Loss HEENTM: No: Nose Congestion, Throat Pain Respiratory: Yes: Cough, Shortness of Breath Cardiac (ROS): Yes: Chest Pain (soreness). No: Edema, Lightheadedness, Palpitations, Syncope ABD/GI: No: Constipated, Diarrhea, Nausea, Vomiting : No: Burning, Dysuria Musculoskeletal: Yes: Back Pain (ribs). No: Neck Pain Integumentary: No: Bruising, Rash Neurological: No: Headache, Numbness, Tingling, Weakness, Dizziness Endocrine: No: Unexplained Weight Gain, Unexplained Weight Loss *Physical Exam - Vital Signs Last Vital Signs Temp Pulse Resp BP Pulse Ox 98.7 F 86 22 138/63 99 09/19/17 17:16 09/19/17 17:16 09/19/17 17:16 09/19/17 17:16 09/19/17 17:16 - Physical Exam General Appearance: Yes: Nourished, Appropriately Dressed, Obese, Other ( pleasant older female answering questions appropriately, slight speech impediment stated 2/2 prior CVA). No: Apparent Distress HEENT: positive: EOMI, Normal ENT Inspection, Normal Voice, Hearing Grossly Normal. negative: Scleral Icterus (R), Scleral Icterus (L), Nasal Congestion Neck: positive: Trachea midline, Supple. negative: Tender, Rigid Respiratory/Chest: positive: Lungs Clear, Normal Breath Sounds, Other (diffuse posterior inferior chest wall tenderness). negative: Respiratory Distress, Crackles, Rhonchi, Stridor, Wheezing Cardiovascular: positive: Regular Rhythm, Regular Rate, S1, S2. negative: Edema , JVD, Murmur Gastrointestinal/Abdominal: positive: Normal Bowel Sounds, Soft. negative: Tender, Organomegaly, Pulsatile Mass, Guarding Musculoskeletal: positive: Normal Inspection. negative: Decreased Range of Motion, Vertebral Tenderness Extremity: positive: Normal Capillary Refill, Normal Inspection, Normal Range of Motion. negative: Tender, Cyanosis Integumentary: positive: Normal Color, Dry, Warm. 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 NML intact (grossly), Fully Oriented, Alert, Normal Mood/Affect, Normal Response, Motor Strength 5/5 Heart Score/ECG Review - History History: Moderately suspicious - Electrocardiogram EKG: Normal - Age Age: >/= 65 - Risk Factors Risk Factors Heart Score: Yes Hx Hypercholesterolemia, Yes Hx Hypertension, Yes Hx Diabetes, Yes Hx Obesity Based on the list above the patient has:: >/=3 risk factors or Hx atherosclerotic disease - Troponin Troponin: </= normal limit - Score Heart Score - Total: 5 ED Treatment Course - LABORATORY CBC & Chemistry Diagram: 09/19/17 20:06 09/19/17 20:06 Medical Decision Making - Medical Decision Making Patient with h/o asthma p/w SOB and cough x1 mo with worsening today like their prior asthma exacerbation. No reported h/o asthma resulting in intubation, PTX, seizure, LOC, hypercapnia, acidosis, etc. Initial Vital Signs Temp Pulse Resp BP Pulse Ox 98.7 F 86 22 138/63 99 09/19/17 17:16 09/19/17 17:16 09/19/17 17:16 09/19/17 17:16 09/19/17 17:16 Exam: good air movement, no wheezes, no murmurs, regular rate and rhythm, diffusely mild ttp anterior and posterior chest wall. DDX IBNLT: asthma exacerbation, COPD, bronchitis, viral URI, influenza, PNA, PTX , CHF, ACS, pericarditis W/U ordered: CBCD CMP Mg Phos CXR EKG TX ordered: DuoNebs Prednisone 60 mg EKG: wnl CXR: wnl Laboratory Tests 09/19/17 09/19/17 09/19/17 20:06 20:06 20:06 WBC 7.8 RBC 3.90 Hgb 11.9 Hct 35.6 MCV 91.4 MCH 30.6 MCHC 33.5 RDW 13.7 Plt Count 309 MPV 8.3 Neutrophils % 85.7 H D Lymphocytes % 12.8 D Monocytes % 1.0 L D Eosinophils % 0.1 D Basophils % 0.4 Sodium 138 Potassium 3.9 Chloride 108 H Carbon Dioxide 23 Anion Gap 7 L BUN 16 Creatinine 1.0 Creat Clearance w eGFR 55.64 Random Glucose 188 H Calcium 9.1 Total Bilirubin 0.3 D AST 16 ALT 19 Alkaline Phosphatase 87 Creatine Kinase 138 Troponin I < 0.02 B-Natriuretic Peptide 80.41 Total Protein 7.8 Albumin 4.0 Lipase 09/19/17 20:06 WBC RBC Hgb Hct MCV MCH MCHC RDW Plt Count MPV Neutrophils % Lymphocytes % Monocytes % Eosinophils % Basophils % Sodium Potassium Chloride Carbon Dioxide Anion Gap BUN Creatinine Creat Clearance w eGFR Random Glucose Calcium Total Bilirubin AST ALT Alkaline Phosphatase Creatine Kinase Troponin I B-Natriuretic Peptide Total Protein Albumin Lipase 120 Reassessment: good air movement, no wheezes, states in greater pain (chest) now than when she arrived The patients symptoms persist despite ED treatments. The patient has continued chest pain and is not safe for discharge home from the ED. High risk CAD based on HEART score of 5 They require further hospital observation, workup, and treatment. Microblog sent to [facility] for admission. Spoke with [facility], in agreement patient to be admitted to: Tele Obs Dr. Weber Decision to Admit order placed to [facility] covering attending. *DC/Admit/Observation/Transfer Diagnosis at time of Disposition: Asthma exacerbation Qualifiers: Asthma severity: unspecified severity Asthma persistence: unspecified Qualified Code(s): J45.901 - Unspecified asthma with (acute) exacerbation Chest pain Qualifiers: Chest pain type: unspecified Qualified Code(s): R07.9 - Chest pain, unspecified - Discharge Dispostion Condition at time of disposition: Guarded Admit: Yes - Referrals Referrals: Henok Valderrama MD [Primary Care Provider] - - Patient Instructions - Post Discharge Activity
[2017-09-19] MEDS ORDERED: ALBUTEROL SO4 2.5/IPRATROPIUM 0.5 INH SOL 3 ML VIAL.NEB. NEB ONE ×2 (19:16→19:21)
[2017-09-19] MEDS ORDERED: predniSONE 20 MG TABLET (UD) PO ONE (19:32)
[2017-09-19] MEDS ORDERED: predniSONE 20 MG TABLET (UD) ONE (19:43)
[2017-09-19] MEDS ORDERED: AZITHROMYCIN 500 MG TABLET PO ONE (19:44)
[2017-09-19] MEDS ORDERED: MAG HYDROX/AL HYDROX/SIMETH 30 ML UNIT-DOSE CUP PO ONE (19:44)
[2017-09-19] MEDS ORDERED: LIDOCAINE VISCOUS 2% ORAL/TOP 20 ML UNIT-DOSE CUP MM ONE (19:44)
[2017-09-19 20:13] LABS: BASO % 0.4 % (0-2.0); EOS % 0.1 % (0-4.5); HEMATOCRIT 35.6 % (32.4-45.2); HEMOGLOBIN 11.9 GM/dL (10.7-15.3); LYMPH % 12.8 % (8-40); MCH 30.6 pg (25.7-33.7); MCHC 33.5 g/dl (32.0-36.0); MEAN CELL VOLUME 91.4 fl (80-96); MEAN PLT VOLUME 8.3 fl (7.5-11.1); NEUT % 85.7 % (42.8-82.8); PLATELET COUNT 309 K/MM3 (134-434); RDW 13.7 % (11.6-15.6); WHITE BLOOD COUNT 7.8 K/mm3 (4.0-10.0)
[2017-09-19] MEDS ORDERED: AZITHROMYCIN 500 MG TABLET ONE (20:25)
[2017-09-19] MEDS ORDERED: MAG HYDROX/AL HYDROX/SIMETH 30 ML UNIT-DOSE CUP ONE (20:25)
[2017-09-19] MEDS ORDERED: LIDOCAINE VISCOUS 2% ORAL/TOP 20 ML UNIT-DOSE CUP ONE (20:25)
[2017-09-19 20:35] LABS: ALK PHOS 87 U/L (45-117); ANION GAP 7 (8-16); BILIRUBIN,TOTAL 0.3 mg/dL (0.2-1.0); BLOOD UREA NITROGEN 16 mg/dL (7-18); CALCIUM 9.1 mg/dL (8.5-10.1); CHLORIDE 108 mmol/L (98-107); CO2 23 mmol/L (21-32); GLUCOSE,RANDOM 188 mg/dL (74-106); N-TERMINAL BNP 80.41 pg/ml (5-125); POTASSIUM 3.9 mmol/L (3.5-5.1); SGOT/AST 16 U/L (15-37); SGPT/ALT 19 U/L (12-78); SODIUM 138 mmol/L (136-145); TOT PROT 7.8 g/dl (6.4-8.2)
[2017-09-19] MEDS ORDERED: ACETAMINOPHEN 1000 MG/100 ML VIAL (NON FORMULARY) IVPB ONE (21:51)
--- NOTE | 2017-09-19 22:15 | PN ---
Teaching Attending Note Name of Resident: Sanjuanita Ambrosio ATTENDING PHYSICIAN STATEMENT I saw and evaluated the patient. I reviewed the resident's note and discussed the case with the resident. I agree with the resident's findings and plan as documented. SUBJECTIVE: 66 F with Pmhx. of Ashtma, CAD (Angio with non-obstructive CAD), HTN, HLD, amd NIDDM, s/p CVA (L. Sided Weakness), GERD who presents with shortness of breath/ Cough X 1 month. States her chest is sore when she coughs and soreness goes to both arms. Also with associated chills and abdominal pain. No fevers. No Nasuea , vomiting or diarrhea. Notes she has never had cancer, No recent long travel/ flights and she walks around at home. Stated her apt. has had construction for past month and has noted cough with same duration. Notes particles in air irritate her breathing. OBJECTIVE: Physical: VS: Vital Signs Period Temp Pulse Resp BP Sys/Hewitt Pulse Ox Last 24 Hr 98.7 F 86 22 138/63 99 GEN: NAD, Resting in bed, Appears comfortable, Speaking in full sentences HEENT: NCAT, PERRL, Throat without erythema or edema CARD: RRR S1, S2 RESP: CTAB ABD: BSx4, NTD to palpation EXT: Trace edema, bilateral and equal LE. UE - C/C/E CBCD WBC 7.8 K/mm3 (4.0-10.0) 09/19/17 20:06 RBC 3.90 M/mm3 (3.60-5.2) 09/19/17 20:06 Hgb 11.9 GM/dL (10.7-15.3) 09/19/17 20:06 Hct 35.6 % (32.4-45.2) 09/19/17 20:06 MCV 91.4 fl (80-96) 09/19/17 20:06 MCHC 33.5 g/dl (32.0-36.0) 09/19/17 20:06 RDW 13.7 % (11.6-15.6) 09/19/17 20:06 Plt Count 309 K/MM3 (134-434) 09/19/17 20:06 MPV 8.3 fl (7.5-11.1) 09/19/17 20:06 CMP Sodium 138 mmol/L (136-145) 09/19/17 20:06 Potassium 3.9 mmol/L (3.5-5.1) 09/19/17 20:06 Chloride 108 mmol/L (98-107) H 09/19/17 20:06 Carbon Dioxide 23 mmol/L (21-32) 09/19/17 20:06 Anion Gap 7 (8-16) L 09/19/17 20:06 BUN 16 mg/dL (7-18) 09/19/17 20:06 Creatinine 1.0 mg/dL (0.55-1.02) 09/19/17 20:06 Creat Clearance w eGFR 55.64 (>60) 09/19/17 20:06 Random Glucose 188 mg/dL (74-106) H 09/19/17 20:06 Calcium 9.1 mg/dL (8.5-10.1) 09/19/17 20:06 Total Bilirubin 0.3 mg/dL (0.2-1.0) D 09/19/17 20:06 AST 16 U/L (15-37) 09/19/17 20:06 ALT 19 U/L (12-78) 09/19/17 20:06 Alkaline Phosphatase 87 U/L (45-117) 09/19/17 20:06 Total Protein 7.8 g/dl (6.4-8.2) 09/19/17 20:06 Albumin 4.0 g/dl (3.4-5.0) 09/19/17 20:06 CARDIAC ENZYMES Creatine Kinase 138 IU/L (26-192) 09/19/17 20:06 Troponin I < 0.02 ng/ml (0.00-0.05) 09/19/17 20:06 CXR: No Acute Process EKG: STACH after nebs 102 Ambulatory Orders Gabapentin [Neurontin] 400 mg PO TID 03/23/15 Topiramate [Topamax] 100 mg PO BID 03/23/15 Albuterol 0.083% Nebulizer [place] [Ventolin 0.083% Nebulizer Soln -] 1 neb NEB Q6H PRN 02/07/16 Ipratropium [place] [Atrovent] 15 ml NS BID 02/07/16 Multivitamin [Poly-Vitamin] 1 each PO DAILY 02/07/16 Albuterol Sulfate [Proair Respiclick] 90 mcg IH TID PRN #1 aer.pow.ba 08/05/16 Linaclotide [Linzess] 0 mcg PO DAILY 08/24/16 Acetaminophen/Caffeine/Butalb [Fioricet -] 1 tab PO TID PRN #12 tablet MDD 3 Acetaminophen [Tylenol Extra Strength] 500 mg PO QID PRN #20 tablet 06/27/17 Lisinopril [Zestril] 2.5 mg PO DAILY 06/27/17 Mirtazapine 7.5 mg PO DAILY 06/27/17 Oxybutynin Chloride [Ditropan Xl] 5 mg PO DAILY 06/27/17 ASSESSMENT AND PLAN: 66 F with Pmhx. of Ashtma, CAD (Angio with non-obstructive CAD), HTN, HLD, amd NIDDM, s/p CVA, GERD who presents with shortness of breath/Cough X 1 month. 1.) Chest Pain/Shortness of Breath - Atypical, Most likely Due to Cough/ LESS Likely PE WELLS Score 0 - HEART5 - Trend trop/ekg - ASA - 02 - Echo 2.) Viral Bronchitis/? Ashtma Exacerbation - Duonebs, Prednisone 60mg - PULM - No signs of infection, no indication for Abx - Monitor 3.) DM - DS - RAISS 4.) Dvt Ppx - Scds Place in Obs-Tele
[2017-09-19] MEDS ORDERED: ASPIRIN 81 MG CHEWABLE TABLETS PO ONE (22:20)
[2017-09-19] MEDS ORDERED: SENNOSIDES 8.6MG TABLET (FP) PO PRN (23:35)
--- NOTE | 2017-09-19 23:40 | MSN ---
Admitting History and Physical - Primary Care Physician PCP: Dr. Valderrama - Admission Chief Complaint: cough, shortness of breath, chest pain History of Present Illness: Elissa Hatch is a 66 year old female with a significant past medical history of asthma, CAD, GERD, DM, who presents with a 1 week history of chest pain, non-productive cough, and shortness of breath. Patient had been having increased shortness of breath for the last month as her building that she lives in is undergoing renovations. Patient stated that in the last week she had increased symptoms of shortness of breath, cough, and chest pain which increased in severity in the last day. She stated that the increased amount of construction materials in the air had been irritating to her breathing. Patient endorses fever, chills, abd pain, hot and cold sensations, diarrhea, headache, weakness. Patient stated that her cough is causing chest pain and pressure. In the ED, patient was given prednisone, mylanta, azithromycin, duoneb, lidocaine oral solution. 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: CVA, Migraine, Peripheral Neuropathy Cardiovascular: Yes: CAD, HTN Pulmonary: Yes: Asthma Gastrointestinal: Yes: GERD, Other (GASTROPARESIS) Heme/Onc: Yes: Anemia Psych: Yes: Depression Musculoskeletal: Yes: Osteoarthritis Endocrine: Yes: Diabetes Mellitus - Past Surgical History Past Surgical History: Yes: Upper Endoscopy - Smoking History Smoking history: Never smoked Have you smoked in the past 12 months: No - Alcohol/Substance Use Hx Alcohol Use: No Home Medications - Allergies Allergies/Adverse Reactions: Allergies Allergy/AdvReac Type Severity Reaction Status Date / Time acetaminophen [From Vicodin] Allergy Mild Hives Verified 09/19/17 17:14 hydrocodone [From Vicodin] Allergy Mild Hives Verified 09/19/17 17:14 hydrocodone bitartrate Allergy Verified 09/19/17 17:14 [From Vicodin] oxycodone Allergy Verified 09/19/17 17:14 sulfabenzamide Allergy Verified 09/19/17 17:14 - Home Medications Home Medications: Ambulatory Orders Gabapentin [Neurontin] 400 mg PO TID 03/23/15 Topiramate [Topamax] 100 mg PO DAILY 03/23/15 Albuterol 0.083% Nebulizer [place]z [place] [Ventolin 0.083% Nebulizer Soln -] 1 neb NEB Q4H PRN 02/07/16 Ipratropium [place] [Atrovent] 15 ml NS BID 02/07/16 Multivitamin [Poly-Vitamin] 1 each PO DAILY 02/07/16 Albuterol Sulfate [Proair Respiclick] 90 mcg IH TID PRN #1 [email or web address] 08/05/16 Lisinopril [Zestril] 2.5 mg PO DAILY 06/27/17 Mirtazapine 7.5 mg PO DAILY 06/27/17 Oxybutynin Chloride [Ditropan Xl] 5 mg PO BID 06/27/17 Ammonium Lactate Cream [Lac-Hydrin 12% Cream -] 1 applic BID 09/19/17 Azelastine HCl 205.5 mcg NS BID 09/19/17 Betamethasone Valerate [Valisone] 1 applic TP BID 09/19/17 Butalb/Acetaminophen/Caffeine [Fioricet 50-300-40 mg Capsule] 1 each PO Q8H PRN 09/19/17 Carbamide Peroxide 6.5% [Debrox -] 5 drop BID 09/19/17 Chlorhexidine Gluconate 15 ml MM TID 09/19/17 Fluticasone/Salmeterol [Advair Hfa 230-21 Mcg Inhaler] 1 inh PO BID 09/19/17 Guaifenesin/Dextromethorphan [Tussin Dm Cough Syrup] 10 ml PO Q4H PRN 09/19/17 Hydrochlorothiazide 12.5 mg PO DAILY 09/19/17 Ketotifen Fumarate 5 ml OP BID 09/19/17 Lidocaine 5% Patch [Lidoderm Patch -] 1 patch TP DAILY 09/19/17 Magnesium Oxide [Magnesium] 400 mg PO DAILY 09/19/17 Neomycin/Polymyx/Hc Ophth Susp [Cortisporin *Ophthalmic Suspension* -] 4 drop AU TID 09/19/17 Oxybutynin Chloride [Ditropan Xl] 5 mg PO DAILY 09/19/17 Pantoprazole Sodium 40 mg PO DAILY 09/19/17 Polyethylene Glycol 3350 [Miralax (For Daily Use) -] 17 gm PO DAILY 09/19/17 Sennosides [Senna] 2 tab PO HS PRN 09/19/17 Sodium Chloride [Saline Nasal [place]] 45 ml NS Q4H PRN 09/19/17 Vitamin B Complex 1 each PO DAILY 09/19/17 Review of Systems - Review of Systems Constitutional: reports: Chills, Fever, Weakness Eyes: reports: Blurred Vision (chronic) HENT: reports: Difficult Swallowing (chronic) Neck: reports: No Symptoms Cardiovascular: reports: Chest Pain (related to cough and movement), Shortness of Breath Respiratory: reports: Exercise Intolerance, SOB Gastrointestinal: reports: Abdominal Pain Genitourinary: reports: No Symptoms Breasts: reports: No Symptoms Reported Musculoskeletal: reports: Joint Pain (chronic), Muscle Pain (chronic) Integumentary: reports: No Symptoms Neurological: reports: No Symptoms Endocrine: reports: No Symptoms Hematology/Lymphatic: reports: No Symptoms Psychiatric: reports: No Symptoms Physical Examination Vital Signs: Vital Signs Temperature 98.7 F 09/19/17 17:16 Pulse Rate 86 09/19/17 17:16 Respiratory Rate 22 09/19/17 17:16 Blood Pressure 138/63 09/19/17 17:16 O2 Sat by Pulse Oximetry (%) 99 09/19/17 17:16 Constitutional: Yes: Well Nourished, No Distress, Calm Eyes: Yes: WNL, Conjunctiva Clear, EOM Intact HENT: Yes: WNL, Atraumatic, Normocephalic Neck: Yes: WNL, Supple, Trachea Midline Cardiovascular: Yes: Tachycardia, S1, S2 Respiratory: Yes: WNL, Regular, CTA Bilaterally Gastrointestinal: Yes: WNL, Normal Bowel Sounds, Soft Musculoskeletal: Yes: Muscle Pain Extremities: Yes: WNL Edema: No Peripheral Pulses: Left Doralis Pedis: 1+, Right Dorsalis Pedis: 1+ Neurological: Yes: WNL, Alert, Oriented ...Motor Strength: WNL Psychiatric: Yes: WNL, Alert, Oriented Labs: CBC, BMP 09/19/17 20:06 09/19/17 20:06 Imaging - Results Chest X-ray: Image Reviewed Assessment/Plan Patient is a 66y/o female with a significant PMHx of asthma, GERD, HTN, CAD, DM who presented to the ED with increased sob, cp, and non-productive cough. Shortness of Breath - likely asthma exacerbation vs acute viral bronchitis - O2 as needed - Duoneb qid and q4h prn - prednisone 60mg - flu-swab - unlikely PE, Wells Score 0 Atypical Chest Pain -likely muscular pain due to prolonged cough - trops negative continue to trend - aspirin - repeat EKG - Echo - Lipid profile - on monitor Diabetes - BGM - ISS - HA1C HTN - continue HCTZ 12.51mg daily - hold lisinopril due to cough F/E/N - diabetic diet - no fluids necessary as of now - electrolytes within normal limits - replete as necessary DVT PPx - SCDs Disposition - observation telemetry
[2017-09-19] MEDS ORDERED: ACETAMINOPHEN INJECTION 100 ML IVPB ONE (23:46)
--- NOTE | 2017-09-19 23:52 | HP ---
CHIEF COMPLAINT: worsening dyspnea, cough PCP: Dr. Valderrama HISTORY OF PRESENT ILLNESS: Patient is a 66 yo F with a PMHx of Asthma, DM, HTN , CVA (left sided weakness), presented because of worsening dyspnea and cough over the last month since construction started in her building. Says she spits up clear phlegm. She also complains of subjective fevers and chills. Patient also says she has chest pain which worsens with coughing that started 1 week ago. No recent long traveling and she walks around at home. She says she has dyspnea on exertion but that is something chronic. She also was exposed to a friend who she says had the flu. Patient failed outpatient treatment of inhalers and steroids. She denies dizziness, myalgias, hemoptysis, dysuria, hematuria, night sweats, weight changes. ER course was notable for: (1) Azithromycin 500mg (2) Prednisone 60mg Recent Travel: denies PAST MEDICAL HISTORY: DM, HTN, CAD, GERD, CVA, urinary incontinence, HLD, Asthma PAST SURGICAL HISTORY: n/a Social History: Smoking: denies Alcohol: denies Drugs: denies Family History: Allergies acetaminophen [From Vicodin] Allergy (Mild, Verified 09/19/17 17:14) Hives hydrocodone [From Vicodin] Allergy (Mild, Verified 09/19/17 17:14) Hives hydrocodone bitartrate [From Vicodin] Allergy (Verified 09/19/17 17:14) unknown oxycodone Allergy (Verified 09/19/17 17:14) head aches sulfabenzamide Allergy (Verified 09/19/17 17:14) hives HOME MEDICATIONS: Home Medications Medication Instructions Recorded Gabapentin [Neurontin] 400 mg PO TID 03/23/15 Topiramate [Topamax] 100 mg PO DAILY 03/23/15 Albuterol 0.083% Nebulizer Luz [place] 1 neb NEB Q6H PRN 02/07/16 [Ventolin 0.083% Nebulizer Soln -] Ipratropium [place] [Atrovent] 15 ml NS BID 02/07/16 Multivitamin [Poly-Vitamin] 1 each PO DAILY 02/07/16 Albuterol Sulfate [Proair 90 mcg IH TID PRN #1 [email or web address] 08/05/16 Respiclick] Linaclotide [Linzess] 0 mcg PO DAILY 08/24/16 Acetaminophen/Caffeine/Butalb 1 tab PO TID PRN #12 tablet MDD 3 02/11/17 [Fioricet -] Acetaminophen [Tylenol Extra 500 mg PO QID PRN #20 tablet 06/27/17 Strength] Lisinopril [Zestril] 2.5 mg PO DAILY 06/27/17 Mirtazapine 7.5 mg PO DAILY 06/27/17 Oxybutynin Chloride [Ditropan Xl] 5 mg PO BID 06/27/17 Butalb/Acetaminophen/Caffeine 1 each PO Q8H PRN 09/19/17 [Fioricet 50-300-40 mg Capsule] Guaifenesin/Dextromethorphan 10 ml PO Q4H PRN 09/19/17 [Tussin Dm Cough Syrup] Hydrochlorothiazide 12.5 mg PO DAILY 09/19/17 Magnesium Oxide [Magnesium] 400 mg PO DAILY 09/19/17 Polyethylene Glycol 3350 [Miralax 17 gm PO DAILY 09/19/17 (For Daily Use) -] Sennosides [Senna] 2 tab PO HS PRN 09/19/17 Vitamin B Complex 1 each PO DAILY 09/19/17 REVIEW OF SYSTEMS CONSTITUTIONAL: fevers, chills, Absent: diaphoresis, generalized weakness, malaise, loss of appetite, weight change HEENT: nasal congestion Absent: rhinorrhea, throat pain, throat swelling, difficulty swallowing, mouth swelling, ear pain, eye pain, visual changes CARDIOVASCULAR: chest Absent: syncope, palpitations, irregular heart rate, lightheadedness, peripheral edema RESPIRATORY: cough, sob, dyspnea with exertion Absent: orthopnea, wheezing, stridor, hemoptysis GASTROINTESTINAL: Absent: abdominal pain, abdominal distension, nausea, vomiting, diarrhea, constipation, melena, hematochezia GENITOURINARY: Absent: dysuria, frequency, urgency, hesitancy, hematuria, flank pain, genital pain ENDOCRINE: Absent: unexplained weight gain, unexplained weight loss, heat intolerance, cold intolerance NEUROLOGIC: headache Absent: focal weakness or paresthesias, dizziness, unsteady gait, seizure, mental status changes, bladder or bowel incontinence PSYCHIATRIC: Absent: anxiety, depression, suicidal or homicidal ideation, hallucinations. PHYSICAL EXAMINATION Vital Signs - 24 hr 09/19/17 17:16 Temperature 98.7 F Pulse Rate 86 Respiratory 22 Rate Blood Pressure 138/63 O2 Sat by Pulse 99 Oximetry (%) GENERAL: A/o x 3, appears comfortable in bed HEAD: Normal with no signs of trauma. EYES: extraocular movements intact, sclera anicteric, conjunctiva clear. EARS, NOSE, THROAT: oropharynx clear without exudates. Moist mucous membranes. NECK:supple without lymphadenopathy, JVD, or masses. LUNGS: Breath sounds equal, clear to auscultation bilaterally. No wheezes, and no crackles. HEART: tachy, normal S1 and S2 without murmur, rub or gallop. ABDOMEN: Soft, nontender, not distended, normoactive bowel sounds, no guarding, no rebound, no masses. UPPER EXTREMITIES: 2+ pulses, warm, well-perfused. No cyanosis. No clubbing. No peripheral edema. LOWER EXTREMITIES: 2+ pulses, warm, well-perfused. No calf tenderness. No peripheral edema. NEUROLOGICAL: Cranial nerves II-XII intact. Normal speech. Laboratory Results - last 24 hr 09/19/17 09/19/17 09/19/17 20:06 20:06 20:06 WBC 7.8 RBC 3.90 Hgb 11.9 Hct 35.6 MCV 91.4 MCH 30.6 MCHC 33.5 RDW 13.7 Plt Count 309 MPV 8.3 Neutrophils % 85.7 H D Lymphocytes % 12.8 D Monocytes % 1.0 L D Eosinophils % 0.1 D Basophils % 0.4 Sodium 138 Potassium 3.9 Chloride 108 H Carbon Dioxide 23 Anion Gap 7 L BUN 16 Creatinine 1.0 Creat Clearance w eGFR 55.64 Random Glucose 188 H Calcium 9.1 Total Bilirubin 0.3 D AST 16 ALT 19 Alkaline Phosphatase 87 Creatine Kinase 138 Troponin I < 0.02 B-Natriuretic Peptide 80.41 Total Protein 7.8 Albumin 4.0 Lipase 09/19/17 20:06 WBC RBC Hgb Hct MCV MCH MCHC RDW Plt Count MPV Neutrophils % Lymphocytes % Monocytes % Eosinophils % Basophils % Sodium Potassium Chloride Carbon Dioxide Anion Gap BUN Creatinine Creat Clearance w eGFR Random Glucose Calcium Total Bilirubin AST ALT Alkaline Phosphatase Creatine Kinase Troponin I B-Natriuretic Peptide Total Protein Albumin Lipase 120 ASSESSMENT/PLAN: 66 yo F with a PMHx of Asthma, DM, HTN, CVA (left sided weakness), presented because of worsening dyspnea and cough over the last month. #Shortness of breath/Chest Pain -Chest pain likely from cough, atypical -Less likely PE, WELLS score 0. -HEART score 5 -Trend Trops -Echo -ASA in ED -Lipid Profile -Cardiac Monitoring #Viral Bronchitis/Asthma Exacerbation -Duonebs -Prednisone 60mg -Med list says patient on Tamiflu. Confirm in AM. -Flu Swab -Consult pulm if needed. -Monitor #DM -BGM -ISS -HgbA1c -Confirm patient's home diabetes meds in AM. #HTN -Cont. HCTZ -Lisinopril 2.5mg, consider holding due to cough side effect. #FEN -No Iv Fluids -WNL -diabetic diet #PPX -SCDs obs tele Visit type - Emergency Visit Emergency Visit: Yes ED Registration Date: 09/19/17 Care time: The patient presented to the Emergency Department on the above date and was hospitalized for further evaluation of their emergent condition. - New Patient This patient is new to me today: Yes Date on this admission: 09/20/17 - Critical Care Critical Care patient: No Hospitalist Screening - Colonoscopy Questionnaire Colonoscopy Questionnaire: Colonoscopy Questionnaire - Patient: 50 - 75 years old and never had a screening colonoscopy: Unknown History of colon or rectal polyps, or CA: Unknown History of IBD, Crohn's disease or UC: Unknown History of abdominal radiation therapy as a child: Unknown - Relative: 1 with colon or rectal CA, or polyps at age 60 or younger: Unknown Colon or rectal CA diagnosed at age 45 or younger: Unknown Multiple relatives with colon or rectal CA: Unknown - Outcome: Screening Result: Negative Screen
[2017-09-19] MEDS ORDERED: ALBUTEROL SO4 2.5/IPRATROPIUM 0.5 INH SOL 3 ML VIAL.NEB. NEB PRN (23:55)
[2017-09-20] MEDS ORDERED: ACETAMINOPHEN 325 MG TABLET (FP) PO ONE (01:16)
[2017-09-20] MEDS ORDERED: ACETAMINOPHEN 325 MG TABLET (FP) ONE (01:18)
[2017-09-20] MEDS ORDERED: INSULIN (NOVOLOG) ASPART 100 UNITS/ML 10ML VIAL ONE (01:19)
[2017-09-20] MEDS ORDERED: ASPIRIN 325 MG TABLET ONE (01:19)
[2017-09-20] MEDS: INSULIN SLIDING SCALE (NOVOLOG) 1 VIAL SQ SCH ×5 (01:24→21:38)
[2017-09-20] MEDS ORDERED: TOPIRAMATE 100 MG TABLET PO ONE (02:29)
[2017-09-20 04:31] VITALS: BMI 32.1
[2017-09-20] MEDS: ALBUTEROL SO4 0.083% IH SOL 2.5 MG/3 ML VIAL.NEB. NEB PRN (04:58)
[2017-09-20] MEDS ORDERED: PT OWN MED DRAWER 7, Y5N ONE ×6 (05:41→21:35)
[2017-09-20] MEDS: CHLORHEXIDINE GLUCONATE 0.12% 15ML CUP MM SCH ×3 (05:59→21:39)
[2017-09-20] MEDS: NEOMYCIN/POLYMYXN/HC OTIC SUSPENSION 10 ML BOTTLE AU SCH ×3 (05:59→21:38)
[2017-09-20] MEDS: GABAPENTIN 400 MG CAPSULE (FP) PO SCH ×3 (05:59→21:38)
[2017-09-20] MEDS ORDERED: INSULIN SLIDING SCALE (NOVOLOG) 1 VIAL SQ SCH ×2 (07:00)
[2017-09-20 07:21] LABS: BASO % 0.6 % (0-2.0); HEMOGLOBIN 11.8 GM/dL (10.7-15.3); MCH 30.8 pg (25.7-33.7); MCHC 33.8 g/dl (32.0-36.0); MEAN CELL VOLUME 91.3 fl (80-96); MEAN PLT VOLUME 8.6 fl (7.5-11.1); MONO % 5.1 % (3.8-10.2); NEUT % 70.3 % (42.8-82.8); PLATELET COUNT 286 K/MM3 (134-434); RBC 3.84 M/mm3 (3.60-5.2); RDW 13.5 % (11.6-15.6); WHITE BLOOD COUNT 6.7 K/mm3 (4.0-10.0)
[2017-09-20 07:23] LABS: INR 1.08 (0.82-1.09); PROTHROMBIN TIME (PATIENT) 12.2 SEC (9.7-13.0)
[2017-09-20 07:24] LABS: ANION GAP 10 (8-16); BLOOD UREA NITROGEN 17 mg/dL (7-18); CALCIUM 9.6 mg/dL (8.5-10.1); CHLORIDE 109 mmol/L (98-107); CO2 22 mmol/L (21-32); GLUCOSE,RANDOM 145 mg/dL (74-106); MAGNESIUM 2.3 mg/dL (1.8-2.4); PHOSPHOROUS 2.8 mg/dL (2.5-4.9); POTASSIUM 3.9 mmol/L (3.5-5.1); SGOT/AST 17 U/L (15-37); SGPT/ALT 18 U/L (12-78); SODIUM 141 mmol/L (136-145)
[2017-09-20 07:26] LABS: ALK PHOS 86 U/L (45-117); BILIRUBIN,TOTAL 0.3 mg/dL (0.2-1.0); TOT PROT 7.8 g/dl (6.4-8.2)
[2017-09-20] MEDS: ALBUTEROL SO4 2.5/IPRATROPIUM 0.5 INH SOL 3 ML VIAL.NEB. NEB SCH ×4 (08:05→21:31)
[2017-09-20] MEDS: FLUTICASONE PROP 0.05% 16 GM NASAL SPRAY NS SCH ×2 (10:17→21:38)
[2017-09-20] MEDS: predniSONE 20 MG TABLET (UD) PO SCH (10:17)
[2017-09-20] MEDS: HYDROCHLOROTHIAZIDE 12.5 MG CAPSULE (FP) PO SCH (10:18)
[2017-09-20] MEDS: MAGNESIUM OXIDE 400 MG TABLET (FP) PO SCH (10:18)
[2017-09-20] MEDS: SOLIFENACIN SUCCINATE 5 MG TAB (FP) PO SCH (10:18)
[2017-09-20] MEDS: POLYETHYLENE GLYCOL 3350 119 GM BTL PO SCH (10:18)
[2017-09-20] MEDS: PANTOPRAZOLE 40 MG TABLET (FP) PO SCH (10:19)
[2017-09-20] MEDS: LISINOPRIL 5 MG TABLET (FP) PO SCH (10:19)
[2017-09-20] MEDS: MULTIVITAMINS (DAILY MVI) TABLET (FP) PO SCH (10:19)
[2017-09-20] MEDS: VITAMIN B COMPLEX W/C COMBO TABLET (FP) PO SCH (10:20)
[2017-09-20] MEDS: TOPIRAMATE 100 MG TABLET PO SCH (10:20)
[2017-09-20] MEDS: BETAMETHASONE VALERATE 0.1% CREAM 15 GM TUBE TP SCH ×2 (10:21→21:42)
[2017-09-20 10:29] LABS: CHOLESTEROL 176 mg/dL (50-200); HDL CHOLESTEROL 79 mg/dL (40-60); TRIGLYCERIDES 37 mg/dL (35-160)
[2017-09-20 11:33] LABS: URINE APPEARANCE CLEAR; URINE BILIRUBIN NEGATIVE (<2.0 mg/dL); URINE BLOOD NEGATIVE (NEGATIVE); URINE COLOR STRAW; URINE GLUCOSE (UA) NEGATIVE (NEGATIVE); URINE KETONE NEGATIVE (NEGATIVE); URINE LEUK ESTERASE NEGATIVE (NEGATIVE); URINE NITRITE NEGATIVE (NEGATIVE); URINE PROTEIN NEGATIVE (NEGATIVE); URINE UROBILINOGEN NEGATIVE mg/dL (0.2-1.0)
--- NOTE | 2017-09-20 12:57 | EKG ---
Test Reason : Blood Pressure : / mmHG Vent. Rate : 102 BPM Atrial Rate : 102 BPM P-R Int : 192 ms QRS Dur : 094 ms QT Int : 364 ms P-R-T Axes : 065 020 046 degrees QTc Int : 474 ms SINUS TACHYCARDIA OTHERWISE NORMAL ECG WHEN COMPARED WITH ECG OF 27-JUN-2017 13:34, VENT. RATE HAS INCREASED BY 37 BPM QT HAS LENGTHENED Confirmed by INGA SCHAEFFER, DYLON ([id number]) on 09/20/2017 12:57:22 PM Referred By: Confirmed By:DYLON XIONG MD
[2017-09-20] MEDS: ACETAMINOPHEN/CAFFEINE/BUTALBITAL 1 TAB PO PRN (14:22)
--- NOTE | 2017-09-20 17:11 | PN ---
Teaching Attending Note Name of Resident: Bebeto Bianchi ATTENDING PHYSICIAN STATEMENT I saw and evaluated the patient. I reviewed the resident's note and discussed the case with the resident. I agree with the resident's findings and plan as documented. SUBJECTIVE: Patient feels less SOB. She complains of pain across her clavicles. She reports cough with clear sputum that is worse at night. OBJECTIVE: Vital Signs Period Temp Pulse Resp BP Sys/Hewitt Pulse Ox Last 24 Hr 97.9 F-98.7 F 72-110 18-22 108-176/59-76 98-100 HEART: S1S2, RRR LUNGS: Few wheezes on left CHEST: Reproducible tenderness over both clavicles ABDOMEN: Soft, non-tender, non-distended, normal BS EXTREMITIES: No edema Laboratory Results - last 24 hr 09/19/17 09/19/17 09/19/17 20:06 20:06 20:06 WBC 7.8 RBC 3.90 Hgb 11.9 Hct 35.6 MCV 91.4 MCH 30.6 MCHC 33.5 RDW 13.7 Plt Count 309 MPV 8.3 Neutrophils % 85.7 H D Lymphocytes % 12.8 D Monocytes % 1.0 L D Eosinophils % 0.1 D Basophils % 0.4 PT with INR INR Sodium 138 Potassium 3.9 Chloride 108 H Carbon Dioxide 23 Anion Gap 7 L BUN 16 Creatinine 1.0 Creat Clearance w eGFR 55.64 POC Glucometer Random Glucose 188 H Hemoglobin A1c % Calcium 9.1 Phosphorus Magnesium Total Bilirubin 0.3 D AST 16 ALT 19 Alkaline Phosphatase 87 Creatine Kinase 138 Troponin I < 0.02 B-Natriuretic Peptide 80.41 Total Protein 7.8 Albumin 4.0 Triglycerides Cholesterol Total LDL Cholesterol HDL Cholesterol Lipase Urine Color Urine Appearance Urine pH Ur Specific [place] Urine Protein Urine Glucose (UA) Urine Ketones Urine Blood Urine Nitrite Urine Bilirubin Urine Urobilinogen Ur Leukocyte Esterase 09/19/17 09/20/17 09/20/17 20:06 00:29 02:05 WBC RBC Hgb Hct MCV MCH MCHC RDW Plt Count MPV Neutrophils % Lymphocytes % Monocytes % Eosinophils % Basophils % PT with INR INR Sodium Potassium Chloride Carbon Dioxide Anion Gap BUN Creatinine Creat Clearance w eGFR POC Glucometer [phone] Random Glucose Hemoglobin A1c % Calcium Phosphorus Magnesium Total Bilirubin AST ALT Alkaline Phosphatase Creatine Kinase Troponin I < 0.02 B-Natriuretic Peptide Total Protein Albumin Triglycerides Cholesterol Total LDL Cholesterol HDL Cholesterol Lipase 120 Urine Color Urine Appearance Urine pH Ur Specific [place] Urine Protein Urine Glucose (UA) Urine Ketones Urine Blood Urine Nitrite Urine Bilirubin Urine Urobilinogen Ur Leukocyte Esterase 09/20/17 09/20/17 09/20/17 05:30 05:35 05:35 WBC 6.7 RBC 3.84 Hgb 11.8 Hct 35.0 MCV 91.3 MCH 30.8 MCHC 33.8 RDW 13.5 Plt Count 286 MPV 8.6 Neutrophils % 70.3 Lymphocytes % 24.0 D Monocytes % 5.1 D Eosinophils % 0.0 D Basophils % 0.6 PT with INR 12.20 INR 1.08 Sodium Potassium Chloride Carbon Dioxide Anion Gap BUN Creatinine Creat Clearance w eGFR POC Glucometer 151 Random Glucose Hemoglobin A1c % Calcium Phosphorus Magnesium Total Bilirubin AST ALT Alkaline Phosphatase Creatine Kinase Troponin I B-Natriuretic Peptide Total Protein Albumin Triglycerides Cholesterol Total LDL Cholesterol HDL Cholesterol Lipase Urine Color Urine Appearance Urine pH Ur Specific [place] Urine Protein Urine Glucose (UA) Urine Ketones Urine Blood Urine Nitrite Urine Bilirubin Urine Urobilinogen Ur Leukocyte Esterase 09/20/17 09/20/17 09/20/17 05:35 05:35 05:35 WBC RBC Hgb Hct MCV MCH MCHC RDW Plt Count MPV Neutrophils % Lymphocytes % Monocytes % Eosinophils % Basophils % PT with INR INR Sodium 141 Potassium 3.9 Chloride 109 H Carbon Dioxide 22 Anion Gap 10 BUN 17 Creatinine 1.0 Creat Clearance w eGFR 55.64 POC Glucometer Random Glucose 145 H Hemoglobin A1c % 7.6 H Calcium 9.6 Phosphorus 2.8 Magnesium 2.3 Total Bilirubin 0.3 AST 17 ALT 18 Alkaline Phosphatase 86 Creatine Kinase Troponin I B-Natriuretic Peptide Total Protein 7.8 Albumin 4.0 Triglycerides 37 Cancelled Cholesterol 176 Cancelled Total LDL Cholesterol 100 Cancelled HDL Cholesterol 79 H Cancelled Lipase Urine Color Urine Appearance Urine pH Ur Specific [place] Urine Protein Urine Glucose (UA) Urine Ketones Urine Blood Urine Nitrite Urine Bilirubin Urine Urobilinogen Ur Leukocyte Esterase 09/20/17 09/20/17 10:47 11:17 WBC RBC Hgb Hct MCV MCH MCHC RDW Plt Count MPV Neutrophils % Lymphocytes % Monocytes % Eosinophils % Basophils % PT with INR INR Sodium Potassium Chloride Carbon Dioxide Anion Gap BUN Creatinine Creat Clearance w eGFR POC Glucometer 153 Random Glucose Hemoglobin A1c % Calcium Phosphorus Magnesium Total Bilirubin AST ALT Alkaline Phosphatase Creatine Kinase Troponin I B-Natriuretic Peptide Total Protein Albumin Triglycerides Cholesterol Total LDL Cholesterol HDL Cholesterol Lipase Urine Color Straw Urine Appearance Clear Urine pH 7.0 Ur Specific [place] 1.011 Urine Protein Negative Urine Glucose (UA) Negative Urine Ketones Negative Urine Blood Negative Urine Nitrite Negative Urine Bilirubin Negative Urine Urobilinogen Negative Ur Leukocyte Esterase Negative Current Medications Generic Name Dose Route Start Last Admin Trade Name Freq PRN Reason Stop Dose Admin Acetaminophen/Butalbital/Caffeine 1 tablet 09/20/17 13:37 09/20/17 14:22 Fioricet - PO 1 tablet Q8H PRN Administration HEADACHE Albuterol Sulfate 1 amp 09/20/17 00:24 09/20/17 04:58 Ventolin 0.083% Nebulizer Soln - NEB 1 amp Q4H PRN Administration SHORT OF BREATH/WHEEZING Albuterol/Ipratropium 1 amp 09/20/17 08:00 09/20/17 15:52 Duoneb - NEB 1 amp RQID KIM Administration Betamethasone Valerate 1 applic 09/20/17 10:00 09/20/17 10:21 Valisone 0.1% Cream - TP 1 applic BID KIM Administration Chlorhexidine Gluconate 15 ml 09/20/17 06:00 09/20/17 14:09 Peridex - MM 15 ml TID KIM Administration Fluticasone Propionate 2 spray 09/20/17 10:00 09/20/17 10:17 Flonase - NS 2 spr BID KIM Administration Gabapentin 400 mg 09/20/17 06:00 09/20/17 14:09 Neurontin - PO 400 mg TID KIM Administration Hydrochlorothiazide 12.5 mg 09/20/17 10:00 09/20/17 10:18 Hctz - PO 12.5 mg DAILY KIM Administration Insulin Aspart 1 vial 09/20/17 00:45 09/20/17 12:08 Novolog Vial Sliding Scale - SQ 2 unit ACHS KIM Administration Protocol Lisinopril 2.5 mg 09/20/17 10:00 09/20/17 10:19 Prinivil PO 2.5 mg DAILY KIM Administration Magnesium Oxide 400 mg 09/20/17 10:00 09/20/17 10:18 Mag-Ox - PO 400 mg DAILY KIM Administration Mirtazapine 7.5 mg 09/20/17 22:00 Remeron - PO HS KIM Multivitamins 1 each 09/20/17 10:00 09/20/17 10:20 Total B With C - PO 1 each DAILY KIM Administration Multivitamins/Minerals/Vitamin C 1 tab 09/20/17 10:00 09/20/17 10:19 Tab-A-Vit - PO 1 tab DAILY KIM Administration Neomycin/Polymyxin/Hydrocortisone 4 drop 09/20/17 06:00 09/20/17 14:09 Cortisporin Otic Suspenstion - AU 09/29/17 22:01 4 drop TID KIM Administration Pantoprazole Sodium 40 mg 09/20/17 10:00 09/20/17 10:19 Protonix - PO 40 mg DAILY KIM Administration Polyethylene Glycol 17 gm 09/20/17 10:00 09/20/17 10:18 Miralax (For Daily Use) - PO 17 gm DAILY KIM Administration Prednisone 60 mg 09/20/17 10:00 09/20/17 10:17 Deltasone - PO 60 mg DAILY KIM Administration Senna 2 tab 09/19/17 23:35 Senna - PO HS PRN CONSTIPATION Solifenacin 10 mg 09/20/17 10:00 09/20/17 10:18 Vesicare - PO 10 mg DAILY KIM Administration Solifenacin 5 mg 09/21/17 10:00 Vesicare - PO DAILY KIM Topiramate 100 mg 09/20/17 10:00 09/20/17 10:20 Topamax - PO 100 mg DAILY KIM Administration ASSESSMENT AND PLAN: This is a 66 year old woman with a history of asthma, type 2 DM, HTN, CVA who presented to the ED with cough and SOB x 1 month. 1. Asthma exacerbation - Continue Prednisone, DuoNeb 2. Chest pain - Likely musculoskeletal - Troponin negative x 2 - Echo shows normal LV, normal RV, trace TR 3. GERD - Continue 4. Type 2 DM - Continue Novolog sliding scale 5. HTN - Continue Lisinopril, HCTZ 6. History of CVA with residual left-sided weakness 7. Disposition - Expect discharge in AM
[2017-09-20] MEDS ORDERED: NAPROXEN 250 MG TABLET (FP) PO ONE (18:00)
--- NOTE | 2017-09-20 19:49 | PN ---
Physical Exam: SUBJECTIVE: Patient seen and examined ay bedside. Patient states SOB improved today, but continues to complain of chest pain and back pain. OBJECTIVE: Vital Signs Period Temp Pulse Resp BP Sys/Hewitt Pulse Ox Last 24 Hr 97.9 F-98.5 F 72-110 18-19 108-176/59-77 98-100 GENERAL: The patient is awake, alert, and fully oriented, in no acute distress. HEAD: Normal with no signs of trauma. NECK: Trachea midline, full range of motion, supple. LUNGS: Decreased air entry bilaterally, clear to auscultation, no wheezes, no crackles, no accessory muscle use. Patient coughs forcefully on deep inspiration HEART: Regular rate and rhythm, S1, S2 without murmur, rub or gallop. The patient's chest pain is reproducible on palpation of the chest wall. ABDOMEN: Soft, nontender, nondistended, normoactive bowel sounds, no guarding, no rebound, no hepatosplenomegaly, no masses. Patient flinches in pain with mild palpation of the CVA. EXTREMITIES: 2+ pulses, warm, well-perfused, no edema. NEUROLOGICAL: Cranial nerves II through X grossly intact. Normal speech, gait not observed. PSYCH: Normal mood, normal affect. SKIN: Warm, dry, normal turgor, no rashes or lesions noted Laboratory Results - last 24 hr 09/19/17 09/19/17 09/19/17 20:06 20:06 20:06 WBC 7.8 RBC 3.90 Hgb 11.9 Hct 35.6 MCV 91.4 MCH 30.6 MCHC 33.5 RDW 13.7 Plt Count 309 MPV 8.3 Neutrophils % 85.7 H D Lymphocytes % 12.8 D Monocytes % 1.0 L D Eosinophils % 0.1 D Basophils % 0.4 PT with INR INR Sodium 138 Potassium 3.9 Chloride 108 H Carbon Dioxide 23 Anion Gap 7 L BUN 16 Creatinine 1.0 Creat Clearance w eGFR 55.64 POC Glucometer Random Glucose 188 H Hemoglobin A1c % Calcium 9.1 Phosphorus Magnesium Total Bilirubin 0.3 D AST 16 ALT 19 Alkaline Phosphatase 87 Creatine Kinase 138 Troponin I < 0.02 B-Natriuretic Peptide 80.41 Total Protein 7.8 Albumin 4.0 Triglycerides Cholesterol Total LDL Cholesterol HDL Cholesterol Lipase Urine Color Urine Appearance Urine pH Ur Specific [place] Urine Protein Urine Glucose (UA) Urine Ketones Urine Blood Urine Nitrite Urine Bilirubin Urine Urobilinogen Ur Leukocyte Esterase 09/19/17 09/20/17 09/20/17 20:06 00:29 02:05 WBC RBC Hgb Hct MCV MCH MCHC RDW Plt Count MPV Neutrophils % Lymphocytes % Monocytes % Eosinophils % Basophils % PT with INR INR Sodium Potassium Chloride Carbon Dioxide Anion Gap BUN Creatinine Creat Clearance w eGFR POC Glucometer [phone] Random Glucose Hemoglobin A1c % Calcium Phosphorus Magnesium Total Bilirubin AST ALT Alkaline Phosphatase Creatine Kinase Troponin I < 0.02 B-Natriuretic Peptide Total Protein Albumin Triglycerides Cholesterol Total LDL Cholesterol HDL Cholesterol Lipase 120 Urine Color Urine Appearance Urine pH Ur Specific [place] Urine Protein Urine Glucose (UA) Urine Ketones Urine Blood Urine Nitrite Urine Bilirubin Urine Urobilinogen Ur Leukocyte Esterase 09/20/17 09/20/17 09/20/17 05:30 05:35 05:35 WBC 6.7 RBC 3.84 Hgb 11.8 Hct 35.0 MCV 91.3 MCH 30.8 MCHC 33.8 RDW 13.5 Plt Count 286 MPV 8.6 Neutrophils % 70.3 Lymphocytes % 24.0 D Monocytes % 5.1 D Eosinophils % 0.0 D Basophils % 0.6 PT with INR 12.20 INR 1.08 Sodium Potassium Chloride Carbon Dioxide Anion Gap BUN Creatinine Creat Clearance w eGFR POC Glucometer 151 Random Glucose Hemoglobin A1c % Calcium Phosphorus Magnesium Total Bilirubin AST ALT Alkaline Phosphatase Creatine Kinase Troponin I B-Natriuretic Peptide Total Protein Albumin Triglycerides Cholesterol Total LDL Cholesterol HDL Cholesterol Lipase Urine Color Urine Appearance Urine pH Ur Specific [place] Urine Protein Urine Glucose (UA) Urine Ketones Urine Blood Urine Nitrite Urine Bilirubin Urine Urobilinogen Ur Leukocyte Esterase 09/20/17 09/20/17 09/20/17 05:35 05:35 05:35 WBC RBC Hgb Hct MCV MCH MCHC RDW Plt Count MPV Neutrophils % Lymphocytes % Monocytes % Eosinophils % Basophils % PT with INR INR Sodium 141 Potassium 3.9 Chloride 109 H Carbon Dioxide 22 Anion Gap 10 BUN 17 Creatinine 1.0 Creat Clearance w eGFR 55.64 POC Glucometer Random Glucose 145 H Hemoglobin A1c % 7.6 H Calcium 9.6 Phosphorus 2.8 Magnesium 2.3 Total Bilirubin 0.3 AST 17 ALT 18 Alkaline Phosphatase 86 Creatine Kinase Troponin I B-Natriuretic Peptide Total Protein 7.8 Albumin 4.0 Triglycerides 37 Cancelled Cholesterol 176 Cancelled Total LDL Cholesterol 100 Cancelled HDL Cholesterol 79 H Cancelled Lipase Urine Color Urine Appearance Urine pH Ur Specific [place] Urine Protein Urine Glucose (UA) Urine Ketones Urine Blood Urine Nitrite Urine Bilirubin Urine Urobilinogen Ur Leukocyte Esterase 09/20/17 09/20/17 09/20/17 10:47 11:17 16:46 WBC RBC Hgb Hct MCV MCH MCHC RDW Plt Count MPV Neutrophils % Lymphocytes % Monocytes % Eosinophils % Basophils % PT with INR INR Sodium Potassium Chloride Carbon Dioxide Anion Gap BUN Creatinine Creat Clearance w eGFR POC Glucometer 153 187 Random Glucose Hemoglobin A1c % Calcium Phosphorus Magnesium Total Bilirubin AST ALT Alkaline Phosphatase Creatine Kinase Troponin I B-Natriuretic Peptide Total Protein Albumin Triglycerides Cholesterol Total LDL Cholesterol HDL Cholesterol Lipase Urine Color Straw Urine Appearance Clear Urine pH 7.0 Ur Specific [place] 1.011 Urine Protein Negative Urine Glucose (UA) Negative Urine Ketones Negative Urine Blood Negative Urine Nitrite Negative Urine Bilirubin Negative Urine Urobilinogen Negative Ur Leukocyte Esterase Negative Active Medications Generic Name Dose Route Start Last Admin Trade Name Freq PRN Reason Stop Dose Admin Acetaminophen/Butalbital/Caffeine 1 tablet 09/20/17 13:37 09/20/17 14:22 Fioricet - PO 1 tablet Q8H PRN Administration HEADACHE Albuterol Sulfate 1 amp 09/20/17 00:24 09/20/17 04:58 Ventolin 0.083% Nebulizer Soln - NEB 1 amp Q4H PRN Administration SHORT OF BREATH/WHEEZING Albuterol/Ipratropium 1 amp 09/20/17 08:00 09/20/17 15:52 Duoneb - NEB 1 amp RQID KIM Administration Betamethasone Valerate 1 applic 09/20/17 10:00 09/20/17 10:21 Valisone 0.1% Cream - TP 1 applic BID KIM Administration Chlorhexidine Gluconate 15 ml 09/20/17 06:00 09/20/17 14:09 Peridex - MM 15 ml TID KIM Administration Fluticasone Propionate 2 spray 09/20/17 10:00 09/20/17 10:17 Flonase - NS 2 spr BID KIM Administration Gabapentin 400 mg 09/20/17 06:00 09/20/17 14:09 Neurontin - PO 400 mg TID KIM Administration Hydrochlorothiazide 12.5 mg 09/20/17 10:00 09/20/17 10:18 Hctz - PO 12.5 mg DAILY KIM Administration Insulin Aspart 1 vial 09/20/17 00:45 09/20/17 16:47 Novolog Vial Sliding Scale - SQ 2 unit ACHS KIM Administration Protocol Lisinopril 2.5 mg 09/20/17 10:00 09/20/17 10:19 Prinivil PO 2.5 mg DAILY KIM Administration Magnesium Oxide 400 mg 09/20/17 10:00 09/20/17 10:18 Mag-Ox - PO 400 mg DAILY KIM Administration Mirtazapine 7.5 mg 09/20/17 22:00 Remeron - PO HS KIM Multivitamins 1 each 09/20/17 10:00 09/20/17 10:20 Total B With C - PO 1 each DAILY KIM Administration Multivitamins/Minerals/Vitamin C 1 tab 09/20/17 10:00 09/20/17 10:19 Tab-A-Vit - PO 1 tab DAILY KIM Administration Neomycin/Polymyxin/Hydrocortisone 4 drop 09/20/17 06:00 09/20/17 14:09 Cortisporin Otic Suspenstion - AU 09/29/17 22:01 4 drop TID KIM Administration Pantoprazole Sodium 40 mg 09/20/17 10:00 09/20/17 10:19 Protonix - PO 40 mg DAILY KIM Administration Polyethylene Glycol 17 gm 09/20/17 10:00 09/20/17 10:18 Miralax (For Daily Use) - PO 17 gm DAILY KIM Administration Prednisone 60 mg 09/20/17 10:00 09/20/17 10:17 Deltasone - PO 60 mg DAILY KIM Administration Senna 2 tab 09/19/17 23:35 Senna - PO HS PRN CONSTIPATION Solifenacin 10 mg 09/20/17 10:00 09/20/17 10:18 Vesicare - PO 10 mg DAILY KIM Administration Solifenacin 5 mg 09/21/17 10:00 Vesicare - PO DAILY KIM Topiramate 100 mg 09/20/17 10:00 09/20/17 10:20 Topamax - PO 100 mg DAILY KIM Administration ASSESSMENT/PLAN: 66 yo F with a PMHx of Asthma, DM, HTN, CVA (left sided weakness), presented because of worsening dyspnea and cough over the last month. #chest pain likely 2/2 asthma exacerbation vs URI w/ costochondritis. -trops negative x2 -EKG WNL -Echo WNL -Lipids WNL #Shortness of breath and cough likely 2/2 Viral Bronchitis/Asthma Exacerbation -c/w Duonebs -Prednisone 60mg po today. Will give another 60mg PO tomorrow, then taper. -Flu Swab negative. #CVA tenderness on exam likely 2/2 costochondritis -pain on exam -no fevers, chills -UA negative for infection #DM -BGM ACHS -ISS ACHS -HgbA1c 7.6 #HTN -C/w home HCTZ 12.5 -c/w home Lisinopril 2.5mg #FEN -no fluids indicated -monitor lytes -diabetic diet #PPX -SCDs #Dispo -admit to tele obs Visit type - Emergency Visit Emergency Visit: Yes ED Registration Date: 09/19/17 Care time: The patient presented to the Emergency Department on the above date and was hospitalized for further evaluation of their emergent condition. - New Patient This patient is new to me today: Yes Date on this admission: 09/20/17 - Critical Care Critical Care patient: No
[2017-09-20] MEDS: MIRTAZAPINE 15 MG TABLET (FP) PO SCH (21:39)
[2017-09-21] MEDS: ALBUTEROL SO4 0.083% IH SOL 2.5 MG/3 ML VIAL.NEB. NEB PRN (03:39)
[2017-09-21] MEDS ORDERED: guaiFENesin 200 MG/10 ML 10 ML UNIT-DOSE CUPS PO ONE (05:11)
[2017-09-21] MEDS ORDERED: PT OWN MED DRAWER 7, Y5N ONE ×5 (06:00→21:17)
[2017-09-21] MEDS: NEOMYCIN/POLYMYXN/HC OTIC SUSPENSION 10 ML BOTTLE AU SCH ×3 (06:06→21:30)
[2017-09-21] MEDS: INSULIN SLIDING SCALE (NOVOLOG) 1 VIAL SQ SCH ×4 (06:06→21:31)
[2017-09-21] MEDS: GABAPENTIN 400 MG CAPSULE (FP) PO SCH ×3 (06:06→21:28)
[2017-09-21] MEDS: CHLORHEXIDINE GLUCONATE 0.12% 15ML CUP MM SCH ×3 (06:06→21:29)
[2017-09-21] MEDS: ALBUTEROL SO4 2.5/IPRATROPIUM 0.5 INH SOL 3 ML VIAL.NEB. NEB SCH ×4 (08:00→20:30)
[2017-09-21] MEDS: SOLIFENACIN SUCCINATE 5 MG TAB (FP) PO SCH (09:34)
[2017-09-21] MEDS: MAGNESIUM OXIDE 400 MG TABLET (FP) PO SCH (09:34)
[2017-09-21] MEDS: MULTIVITAMINS (DAILY MVI) TABLET (FP) PO SCH (09:35)
[2017-09-21] MEDS: predniSONE 20 MG TABLET (UD) PO SCH (09:35)
[2017-09-21] MEDS: PANTOPRAZOLE 40 MG TABLET (FP) PO SCH (09:35)
[2017-09-21] MEDS: LISINOPRIL 5 MG TABLET (FP) PO SCH (09:35)
[2017-09-21] MEDS: HYDROCHLOROTHIAZIDE 12.5 MG CAPSULE (FP) PO SCH (09:36)
[2017-09-21] MEDS: FLUTICASONE PROP 0.05% 16 GM NASAL SPRAY NS SCH ×2 (09:36→21:30)
[2017-09-21] MEDS: POLYETHYLENE GLYCOL 3350 119 GM BTL PO SCH (09:38)
[2017-09-21] MEDS: VITAMIN B COMPLEX W/C COMBO TABLET (FP) PO SCH (09:41)
[2017-09-21] MEDS: TOPIRAMATE 100 MG TABLET PO SCH (09:41)
[2017-09-21] MEDS: BETAMETHASONE VALERATE 0.1% CREAM 15 GM TUBE TP SCH ×2 (09:41→21:45)
[2017-09-21] MEDS ORDERED: SOLIFENACIN SUCCINATE 5 MG TAB (FP) PO SCH (10:00)
[2017-09-21] MEDS: ACETAMINOPHEN/CAFFEINE/BUTALBITAL 1 TAB PO PRN ×2 (12:20→21:38)
[2017-09-21] MEDS: BENZOCAINE/MENTH/CETYLPYRD CL 1 EACH LOZENGE MM PRN (12:22)
--- NOTE | 2017-09-21 14:30 | PN ---
Teaching Attending Note Name of Resident: Bebeto Bianchi ATTENDING PHYSICIAN STATEMENT I saw and evaluated the patient. I reviewed the resident's note and discussed the case with the resident. I agree with the resident's findings and plan as documented. SUBJECTIVE: Patient states her breathing is better, and she is afraid to go home due to the construction dust and the fear it will make her asthma worse OBJECTIVE: Last Vital Signs Temp Pulse Resp BP Pulse Ox 97.5 F L 88 19 144/82 98 09/21/17 09:00 09/21/17 09:00 09/21/17 09:00 09/21/17 09:00 09/21/17 08:48 Patient is sitting in chair, no respirtory distress, states her ribs remain sore all over. Chest with god air entry, minimal late expiratory wheezes Heart RR no M Abd soft NT Extrem no edema or tenderness, SCD in place ASSESSMENT AND PLAN: Asthma exacerbation, much improved on lung exam, will continue duonebs, inhaled CS, decrease steroid to prednisone 40 mg daily, give albuterol to patient prn as requested. Chest pain consistent with chest wall pain. 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
[2017-09-21] MEDS ORDERED: INSULIN (NOVOLOG) ASPART 100 UNITS/ML 10ML VIAL ONE (17:06)
[2017-09-21] MEDS: MIRTAZAPINE 15 MG TABLET (FP) PO SCH (21:28)
[2017-09-21] MEDS: guaiFENesin/D-M SUGAR-FREE/ACLHOL-FREE 118 ML BOTTLE PO PRN (21:34)
[2017-09-22] MEDS: BENZOCAINE/MENTH/CETYLPYRD CL 1 EACH LOZENGE MM PRN (01:43)
[2017-09-22] MEDS: guaiFENesin/D-M SUGAR-FREE/ACLHOL-FREE 118 ML BOTTLE PO PRN ×3 (01:43→22:00)
[2017-09-22] MEDS: NEOMYCIN/POLYMYXN/HC OTIC SUSPENSION 10 ML BOTTLE AU SCH ×3 (06:23→21:25)
[2017-09-22] MEDS: INSULIN SLIDING SCALE (NOVOLOG) 1 VIAL SQ SCH ×4 (06:24→21:26)
[2017-09-22] MEDS: CHLORHEXIDINE GLUCONATE 0.12% 15ML CUP MM SCH ×3 (06:24→21:24)
[2017-09-22] MEDS: GABAPENTIN 400 MG CAPSULE (FP) PO SCH ×3 (06:24→21:23)
[2017-09-22] MEDS ORDERED: PT OWN MED DRAWER 7, Y5N ONE ×5 (06:28→14:15)
[2017-09-22] MEDS: ALBUTEROL SO4 2.5/IPRATROPIUM 0.5 INH SOL 3 ML VIAL.NEB. NEB SCH ×4 (08:01→20:08)
--- NOTE | 2017-09-22 08:56 | PN ---
Physical Exam: SUBJECTIVE: Patient seen and examined at bedside. She states her breathingis improved today, though she still c/o cough. OBJECTIVE: Vital Signs Period Temp Pulse Resp BP Sys/Hewitt Pulse Ox Last 24 Hr 97.4 F-98.3 F 77-95 18-20 105-152/62-84 98-98 GENERAL: The patient is awake, alert, and fully oriented, in no acute distress. HEAD: Normal with no signs of trauma. NECK: Trachea midline, full range of motion, supple. LUNGS: air entry improved today, clear to auscultation, no wheezes, no crackles , no accessory muscle use. Patient coughs forcefully on deep inspiration HEART: Regular rate and rhythm, S1, S2 without murmur, rub or gallop. The patient's chest pain is reproducible on palpation of the chest wall. ABDOMEN: Soft, nontender, nondistended, normoactive bowel sounds, no guarding, no rebound, no hepatosplenomegaly, no masses. EXTREMITIES: 2+ pulses, warm, well-perfused, no edema. NEUROLOGICAL: Cranial nerves II through X grossly intact. Normal speech, gait not observed. PSYCH: Normal mood, normal affect. SKIN: Warm, dry, normal turgor, no rashes or lesions noted Laboratory Results - last 24 hr 09/21/17 09/21/17 09/21/17 11:49 17:02 21:24 POC Glucometer 135 222 210 09/22/17 06:16 POC Glucometer 97 Active Medications Generic Name Dose Route Start Last Admin Trade Name Freq PRN Reason Stop Dose Admin Acetaminophen/Butalbital/Caffeine 1 tablet 09/20/17 13:37 09/21/17 21:38 Fioricet - PO 1 tablet Q8H PRN Administration HEADACHE Albuterol Sulfate 1 amp 09/20/17 00:24 09/21/17 03:39 Ventolin 0.083% Nebulizer Soln - NEB 1 amp Q4H PRN Administration SHORT OF BREATH/WHEEZING Albuterol/Ipratropium 1 amp 09/20/17 08:00 09/22/17 08:01 Duoneb - NEB 1 amp RQID KIM Administration Benzocaine/Menthol 1 each 09/21/17 11:30 09/22/17 01:43 Cepacol Lozenge - MM 1 each PRN PRN Administration SORE THROAT Betamethasone Valerate 1 applic 09/20/17 10:00 09/21/17 21:45 Valisone 0.1% Cream - TP 1 applic BID KIM Administration Chlorhexidine Gluconate 15 ml 09/20/17 06:00 09/22/17 06:24 Peridex - MM 15 ml TID KIM Administration Fluticasone Propionate 2 spray 09/20/17 10:00 09/21/17 21:30 Flonase - NS 2 spray BID KIM Administration Gabapentin 400 mg 09/20/17 06:00 09/22/17 06:24 Neurontin - PO 400 mg TID KIM Administration Guaifenesin 10 ml 09/21/17 11:30 09/22/17 01:43 Diabetic Tussin Dm - PO 10 ml Q4H PRN Administration COUGH Hydrochlorothiazide 12.5 mg 09/20/17 10:00 09/21/17 09:36 Hctz - PO 12.5 mg DAILY KIM Administration Insulin Aspart 1 vial 09/20/17 00:45 09/22/17 06:24 Novolog Vial Sliding Scale - SQ Not Given ACHS [facility] Protocol Lisinopril 2.5 mg 09/20/17 10:00 09/21/17 09:35 Prinivil PO 2.5 mg DAILY KIM Administration Magnesium Oxide 400 mg 09/20/17 10:00 09/21/17 09:34 Mag-Ox - PO 400 mg DAILY KIM Administration Mirtazapine 7.5 mg 09/20/17 22:00 09/21/17 21:28 Remeron - PO 7.5 mg HS KIM Administration Multivitamins 1 each 09/20/17 10:00 09/21/17 09:41 Total B With C - PO 1 each DAILY KIM Administration Multivitamins/Minerals/Vitamin C 1 tab 09/20/17 10:00 09/21/17 09:35 Tab-A-Vit - PO 1 tab DAILY KIM Administration Neomycin/Polymyxin/Hydrocortisone 4 drop 09/20/17 06:00 09/22/17 06:23 Cortisporin Otic Suspenstion - AU 09/29/17 22:01 4 drop TID KIM Administration Pantoprazole Sodium 40 mg 09/20/17 10:00 09/21/17 09:35 Protonix - PO 40 mg DAILY KIM Administration Polyethylene Glycol 17 gm 09/20/17 10:00 09/21/17 09:38 Miralax (For Daily Use) - PO 17 gm DAILY KIM Administration Prednisone 40 mg 09/21/17 11:32 Deltasone - PO DAILY KIM Senna 2 tab 09/19/17 23:35 Senna - PO HS PRN CONSTIPATION Solifenacin 10 mg 09/20/17 10:00 09/21/17 09:34 Vesicare - PO 10 mg DAILY KIM Administration Topiramate 100 mg 09/20/17 10:00 09/21/17 09:41 Topamax - PO 100 mg DAILY KIM Administration ASSESSMENT/PLAN: 66 yo F with a PMHx of Asthma, DM, HTN, CVA (left sided weakness), presented because of worsening dyspnea and cough over the last month. #chest pain likely 2/2 asthma exacerbation vs URI w/ costochondritis. -trops negative x2 -EKG WNL -Echo WNL -Lipids WNL #Shortness of breath and cough likely 2/2 Viral Bronchitis/Asthma Exacerbation -c/w Duonebs -added nebs PRN -Prednisone 60mg po today. Will taper to 40 tomorrow. -Flu Swab negative. -robitussin -Cepacol drops #CVA tenderness on exam likely 2/2 costochondritis -pain on exam -no fevers, chills -UA negative for infection #DM -BGM ACHS -ISS ACHS -HgbA1c 7.6 #HTN -C/w home HCTZ 12.5 -c/w home Lisinopril 2.5mg #FEN -no fluids indicated -monitor lytes -diabetic diet #PPX -SCDs #Dispo -admit to tele obs -pending SNF placement until construction in her apartment is finished. Visit type - Emergency Visit Emergency Visit: Yes ED Registration Date: 09/21/17 Care time: The patient presented to the Emergency Department on the above date and was hospitalized for further evaluation of their emergent condition. - New Patient This patient is new to me today: No - Critical Care Critical Care patient: No
[2017-09-22] MEDS: MULTIVITAMINS (DAILY MVI) TABLET (FP) PO SCH (09:45)
[2017-09-22] MEDS: predniSONE 20 MG TABLET (UD) PO SCH (09:45)
[2017-09-22] MEDS: PANTOPRAZOLE 40 MG TABLET (FP) PO SCH (09:45)
[2017-09-22] MEDS: SOLIFENACIN SUCCINATE 5 MG TAB (FP) PO SCH (09:45)
[2017-09-22] MEDS: LISINOPRIL 5 MG TABLET (FP) PO SCH (09:46)
[2017-09-22] MEDS: FLUTICASONE PROP 0.05% 16 GM NASAL SPRAY NS SCH ×2 (09:46→21:25)
[2017-09-22] MEDS: MAGNESIUM OXIDE 400 MG TABLET (FP) PO SCH (09:46)
[2017-09-22] MEDS: HYDROCHLOROTHIAZIDE 12.5 MG CAPSULE (FP) PO SCH (09:46)
[2017-09-22] MEDS: VITAMIN B COMPLEX W/C COMBO TABLET (FP) PO SCH (09:46)
[2017-09-22] MEDS: POLYETHYLENE GLYCOL 3350 119 GM BTL PO SCH (10:35)
[2017-09-22] MEDS: BETAMETHASONE VALERATE 0.1% CREAM 15 GM TUBE TP SCH ×2 (10:36→21:27)
--- NOTE | 2017-09-22 10:48 | PN ---
Physical Exam: SUBJECTIVE: Patient seen and examined Patient has no new complains, looks comfortable, but states that she is having difficulty with her breathing since construction is going in her building which triggered her dymptoms, no nausea or vomiting. OBJECTIVE: Vital Signs Temperature 98.1 F 09/22/17 05:00 Pulse Rate 88 09/22/17 05:00 Respiratory Rate 18 09/22/17 05:00 Blood Pressure 149/84 09/22/17 05:00 O2 Sat by Pulse Oximetry (%) 98 09/21/17 23:40 GENERAL: The patient is awake, alert, and fully oriented, in no acute distress. Looks older than her stated age. HEAD: Normal with no signs of trauma. EYES: PERRL, extraocular movements intact, sclera anicteric, conjunctiva clear. ENT: Ears normal, oropharynx clear without exudates, moist mucous membranes, wears dentures NECK: Trachea midline, full range of motion, supple. LUNGS: decreased Breath sounds BL L>R, no wheezes, no crackles, no accessory muscle use. HEART: Regular rate and rhythm, S1, S2 without murmur, rub or gallop. ABDOMEN: Soft, nontender, nondistended, normoactive bowel sounds, no guarding, no rebound, no hepatosplenomegaly, no masses. EXTREMITIES: 2+ pulses, warm, well-perfused, no edema. NEUROLOGICAL: Cranial nerves II through XII grossly intact. Normal speech, gait not observed. uses walkers for ambulation PSYCH: Normal mood, normal affect. SKIN: Warm, dry, normal turgor, no rashes or lesions noted Laboratory Results - last 24 hr 09/21/17 09/21/17 09/21/17 11:49 17:02 21:24 POC Glucometer 135 222 210 09/22/17 06:16 POC Glucometer 97 Active Medications Generic Name Dose Route Start Last Admin Trade Name Freq PRN Reason Stop Dose Admin Acetaminophen/Butalbital/Caffeine 1 tablet 09/20/17 13:37 09/21/17 21:38 Fioricet - PO 1 tablet Q8H PRN Administration HEADACHE Albuterol Sulfate 1 amp 09/20/17 00:24 09/21/17 03:39 Ventolin 0.083% Nebulizer Soln - NEB 1 amp Q4H PRN Administration SHORT OF BREATH/WHEEZING Albuterol/Ipratropium 1 amp 09/20/17 08:00 09/22/17 08:01 Duoneb - NEB 1 amp RQID KIM Administration Benzocaine/Menthol 1 each 09/21/17 11:30 09/22/17 01:43 Cepacol Lozenge - MM 1 each PRN PRN Administration SORE THROAT Betamethasone Valerate 1 applic 09/20/17 10:00 09/22/17 10:36 Valisone 0.1% Cream - TP 1 applic BID KIM Administration Chlorhexidine Gluconate 15 ml 09/20/17 06:00 09/22/17 06:24 Peridex - MM 15 ml TID KIM Administration Fluticasone Propionate 2 spray 09/20/17 10:00 09/22/17 09:46 Flonase - NS 2 spray BID KIM Administration Gabapentin 400 mg 09/20/17 06:00 09/22/17 06:24 Neurontin - PO 400 mg TID KIM Administration Guaifenesin 10 ml 09/21/17 11:30 09/22/17 09:47 Diabetic Tussin Dm - PO 10 ml Q4H PRN Administration COUGH Hydrochlorothiazide 12.5 mg 09/20/17 10:00 09/22/17 09:46 Hctz - PO 12.5 mg DAILY KIM Administration Insulin Aspart 1 vial 09/20/17 00:45 09/22/17 06:24 Novolog Vial Sliding Scale - SQ Not Given ACHS [facility] Protocol Lisinopril 2.5 mg 09/20/17 10:00 09/22/17 09:46 Prinivil PO 2.5 mg DAILY KIM Administration Magnesium Oxide 400 mg 09/20/17 10:00 09/22/17 09:46 Mag-Ox - PO 400 mg DAILY KIM Administration Mirtazapine 7.5 mg 09/20/17 22:00 09/21/17 21:28 Remeron - PO 7.5 mg HS IKM Administration Multivitamins 1 each 09/20/17 10:00 09/22/17 09:46 Total B With C - PO 1 each DAILY KIM Administration Multivitamins/Minerals/Vitamin C 1 tab 09/20/17 10:00 09/22/17 09:45 Tab-A-Vit - PO 1 tab DAILY KIM Administration Neomycin/Polymyxin/Hydrocortisone 4 drop 09/20/17 06:00 09/22/17 06:23 Cortisporin Otic Suspenstion - AU 09/29/17 22:01 4 drop TID KIM Administration Pantoprazole Sodium 40 mg 09/20/17 10:00 09/22/17 09:45 Protonix - PO 40 mg DAILY KIM Administration Polyethylene Glycol 17 gm 09/20/17 10:00 09/22/17 10:35 Miralax (For Daily Use) - PO 17 gm DAILY KIM Administration Prednisone 40 mg 09/21/17 11:32 09/22/17 09:45 Deltasone - PO 40 mg DAILY KIM Administration Senna 2 tab 09/19/17 23:35 Senna - PO HS PRN CONSTIPATION Solifenacin 10 mg 09/20/17 10:00 09/22/17 09:45 Vesicare - PO 10 mg DAILY KIM Administration Topiramate 100 mg 09/20/17 10:00 09/21/17 09:41 Topamax - PO 100 mg DAILY KIM Administration Home Medications Medication Instructions Recorded Gabapentin [Neurontin] 400 mg PO TID 03/23/15 Topiramate [Topamax] 100 mg PO DAILY 03/23/15 Albuterol 0.083% Nebulizer [place] 1 neb NEB Q4H PRN 02/07/16 [Ventolin 0.083% Nebulizer Soln -] Ipratropium Vale [Atrovent] 15 ml NS BID 02/07/16 Multivitamin [Poly-Vitamin] 1 each PO DAILY 02/07/16 Lisinopril [Zestril] 2.5 mg PO DAILY 06/27/17 Mirtazapine 7.5 mg PO DAILY 06/27/17 Azelastine HCl 205.5 mcg NS BID 09/19/17 Butalb/Acetaminophen/Caffeine 1 each PO Q8H PRN 09/19/17 [Fioricet 50-300-40 mg Capsule] Chlorhexidine Gluconate 15 ml MM TID 09/19/17 Guaifenesin/Dextromethorphan 10 ml PO Q4H PRN 09/19/17 [Tussin Dm Cough Syrup] Hydrochlorothiazide 12.5 mg PO DAILY 09/19/17 Ketotifen Fumarate 5 ml OP BID 09/19/17 Lidocaine 5% Patch [Lidoderm Patch 1 patch TP DAILY 09/19/17 -] Magnesium Oxide [Magnesium] 400 mg PO DAILY 09/19/17 Pantoprazole Sodium 40 mg PO DAILY 09/19/17 Sennosides [Senna] 2 tab PO HS PRN 09/19/17 Sodium Chloride [Saline Nasal 45 ml NS Q4H PRN 09/19/17 [place]] Vitamin B Complex 1 each PO DAILY 09/19/17 Fluticasone/Salmeterol [Advair Hfa 1 inh PO BID 09/20/17 230-21 Mcg Inhaler] Neomycin/Polymyxn/Hc [Cortisporin 5 drop OT Q4HWA 09/20/17 Otic Solution -] Oxybutynin Chloride [Ditropan Xl] 5 mg PO DAILY 09/20/17 Polyethylene Glycol 3350 [Miralax 17 gm PO DAILY 09/20/17 (For Bowel Prep) -] Tiotropium [place] [Spiriva] 1 inh IH DAILY 09/20/17 ASSESSMENT AND PLAN: Patient is a 66 year old woman with a history of asthma, type 2 DM, HTN, CVA who presented to the ED with cough and SOB x 1 month. # Acute Asthma exacerbation, improving will continue duonebs, inhaled CS, decrease steroid to prednisone 40 mg daily, will continue with albuterol to patient prn Also important to control her trigger sucjh as in this patient care , patient is c/o her construction in the building. # Chest pain consistent with chest wall pain since is coughing , will hold her lisinopril since can be part of the reason of coughing. will add Norvasc instead # T2DM controlled continue regimen # Patient has a 24h care at home, since having a construction at home which is aggregating her asthma exacerbation, Patient will benefit ftom SnF , SNF placement with rehab until home situation is no longer a risk to her respiratory status. DVT Px: Lovenox 40mg sq rehab placement. Visit type - Emergency Visit Emergency Visit: Yes ED Registration Date: 09/21/17 Care time: The patient presented to the Emergency Department on the above date and was hospitalized for further evaluation of their emergent condition. - New Patient This patient is new to me today: Yes Date on this admission: 09/22/17 - Critical Care Critical Care patient: No - Discharge Referral Referred to [facility] Med [facility] No
[2017-09-22] MEDS: ACETAMINOPHEN/CAFFEINE/BUTALBITAL 1 TAB PO PRN ×2 (11:09→17:27)
[2017-09-22] MEDS ORDERED: INSULIN (NOVOLOG) ASPART 100 UNITS/ML 10ML VIAL ONE (11:51)
[2017-09-22] MEDS: TOPIRAMATE 100 MG TABLET PO SCH (12:10)
[2017-09-22] MEDS ORDERED: ACETAMINOPHEN/CAFFEINE/BUTALBITAL 1 TAB PO ONE (18:15)
[2017-09-22] MEDS: MIRTAZAPINE 15 MG TABLET (FP) PO SCH (21:24)
[2017-09-23] MEDS: ACETAMINOPHEN/CAFFEINE/BUTALBITAL 1 TAB PO PRN ×2 (01:17→13:57)
[2017-09-23] MEDS: BENZOCAINE/MENTH/CETYLPYRD CL 1 EACH LOZENGE MM PRN (03:53)
[2017-09-23] MEDS: guaiFENesin/D-M SUGAR-FREE/ACLHOL-FREE 118 ML BOTTLE PO PRN ×3 (03:53→21:22)
[2017-09-23] MEDS: GABAPENTIN 400 MG CAPSULE (FP) PO SCH ×3 (05:59→21:21)
[2017-09-23] MEDS: NEOMYCIN/POLYMYXN/HC OTIC SUSPENSION 10 ML BOTTLE AU SCH ×3 (05:59→21:20)
[2017-09-23] MEDS: CHLORHEXIDINE GLUCONATE 0.12% 15ML CUP MM SCH ×3 (06:00→21:22)
[2017-09-23] MEDS: INSULIN SLIDING SCALE (NOVOLOG) 1 VIAL SQ SCH ×4 (06:00→21:26)
[2017-09-23] MEDS ORDERED: PT OWN MED DRAWER 7, Y5N ONE ×2 (06:12→21:12)
[2017-09-23] MEDS: ALBUTEROL SO4 2.5/IPRATROPIUM 0.5 INH SOL 3 ML VIAL.NEB. NEB SCH ×4 (08:34→20:18)
[2017-09-23] MEDS: PANTOPRAZOLE 40 MG TABLET (FP) PO SCH (09:29)
[2017-09-23] MEDS: LISINOPRIL 5 MG TABLET (FP) PO SCH (09:29)
[2017-09-23] MEDS: MULTIVITAMINS (DAILY MVI) TABLET (FP) PO SCH (09:29)
[2017-09-23] MEDS: HYDROCHLOROTHIAZIDE 12.5 MG CAPSULE (FP) PO SCH (09:29)
[2017-09-23] MEDS: MAGNESIUM OXIDE 400 MG TABLET (FP) PO SCH (09:29)
[2017-09-23] MEDS: SOLIFENACIN SUCCINATE 5 MG TAB (FP) PO SCH (09:29)
[2017-09-23] MEDS: predniSONE 20 MG TABLET (UD) PO SCH (09:30)
[2017-09-23] MEDS: POLYETHYLENE GLYCOL 3350 119 GM BTL PO SCH (09:30)
[2017-09-23] MEDS: VITAMIN B COMPLEX W/C COMBO TABLET (FP) PO SCH (09:32)
[2017-09-23] MEDS: TOPIRAMATE 100 MG TABLET PO SCH (09:33)
[2017-09-23] MEDS: FLUTICASONE PROP 0.05% 16 GM NASAL SPRAY NS SCH ×2 (09:35→21:21)
[2017-09-23] MEDS: BETAMETHASONE VALERATE 0.1% CREAM 15 GM TUBE TP SCH ×2 (09:37→21:26)
--- NOTE | 2017-09-23 12:36 | PN ---
Progress Note (short form) - Note Progress Note: Patient continues to c/o unable to breath.No fever or chills, no shortness of breath, continues to cough. Vital Signs Temperature 98.2 F 09/23/17 08:35 Pulse Rate 78 09/23/17 08:35 Respiratory Rate 20 09/23/17 08:35 Blood Pressure 108/68 09/23/17 08:35 O2 Sat by Pulse Oximetry (%) 99 09/23/17 08:35 GENERAL: The patient is awake, alert, and fully oriented, in no acute distress. Looks older than her stated age. HEAD: Normal with no signs of trauma. EYES: PERRL, extraocular movements intact, sclera anicteric, conjunctiva clear. ENT: Ears normal, oropharynx clear without exudates, moist mucous membranes, wears dentures NECK: Trachea midline, full range of motion, supple. LUNGS: decreased Breath sounds BL L>R, no wheezes, no crackles, no accessory muscle use. HEART: Regular rate and rhythm, S1, S2 without murmur, rub or gallop. ABDOMEN: Soft, nontender, nondistended, normoactive bowel sounds, no guarding, no rebound, no hepatosplenomegaly, no masses. EXTREMITIES: 2+ pulses, warm, well-perfused, no edema. NEUROLOGICAL: Cranial nerves II through XII grossly intact. Normal speech, gait not observed. uses walkers for ambulation PSYCH: Normal mood, normal affect. SKIN: Warm, dry, normal turgor, no rashes or lesions noted CBCD WBC 6.7 K/mm3 (4.0-10.0) 09/20/17 05:35 RBC 3.84 M/mm3 (3.60-5.2) 09/20/17 05:35 Hgb 11.8 GM/dL (10.7-15.3) 09/20/17 05:35 Hct 35.0 % (32.4-45.2) 09/20/17 05:35 MCV 91.3 fl (80-96) 09/20/17 05:35 MCHC 33.8 g/dl (32.0-36.0) 09/20/17 05:35 RDW 13.5 % (11.6-15.6) 09/20/17 05:35 Plt Count 286 K/MM3 (134-434) 09/20/17 05:35 MPV 8.6 fl (7.5-11.1) 09/20/17 05:35 CMP Sodium 141 mmol/L (136-145) 09/20/17 05:35 Potassium 3.9 mmol/L (3.5-5.1) 09/20/17 05:35 Chloride 109 mmol/L (98-107) H 09/20/17 05:35 Carbon Dioxide 22 mmol/L (21-32) 09/20/17 05:35 Anion Gap 10 (8-16) 09/20/17 05:35 BUN 17 mg/dL (7-18) 09/20/17 05:35 Creatinine 1.0 mg/dL (0.55-1.02) 09/20/17 05:35 Creat Clearance w eGFR 55.64 (>60) 09/20/17 05:35 Random Glucose 145 mg/dL (74-106) H 09/20/17 05:35 Calcium 9.6 mg/dL (8.5-10.1) 09/20/17 05:35 Total Bilirubin 0.3 mg/dL (0.2-1.0) 09/20/17 05:35 AST 17 U/L (15-37) 09/20/17 05:35 ALT 18 U/L (12-78) 09/20/17 05:35 Alkaline Phosphatase 86 U/L (45-117) 09/20/17 05:35 Total Protein 7.8 g/dl (6.4-8.2) 09/20/17 05:35 Albumin 4.0 g/dl (3.4-5.0) 09/20/17 05:35 CARDIAC ENZYMES Creatine Kinase 138 IU/L (26-192) 09/19/17 20:06 Troponin I < 0.02 ng/ml (0.00-0.05) 09/20/17 02:05 Home Medications Medication Instructions Recorded Gabapentin [Neurontin] 400 mg PO TID 03/23/15 Topiramate [Topamax] 100 mg PO DAILY 03/23/15 Albuterol 0.083% Nebulizer Luz [place] 1 neb NEB Q4H PRN 02/07/16 [Ventolin 0.083% Nebulizer Soln -] Ipratropium [place] [Atrovent] 15 ml NS BID 02/07/16 Multivitamin [Poly-Vitamin] 1 each PO DAILY 02/07/16 Lisinopril [Zestril] 2.5 mg PO DAILY 06/27/17 Mirtazapine 7.5 mg PO DAILY 06/27/17 Azelastine HCl 205.5 mcg NS BID 09/19/17 Butalb/Acetaminophen/Caffeine 1 each PO Q8H PRN 09/19/17 [Fioricet 50-300-40 mg Capsule] Chlorhexidine Gluconate 15 ml MM TID 09/19/17 Guaifenesin/Dextromethorphan 10 ml PO Q4H PRN 09/19/17 [Tussin Dm Cough Syrup] Hydrochlorothiazide 12.5 mg PO DAILY 09/19/17 Ketotifen Fumarate 5 ml OP BID 09/19/17 Lidocaine 5% Patch [Lidoderm Patch 1 patch TP DAILY 09/19/17 -] Magnesium Oxide [Magnesium] 400 mg PO DAILY 09/19/17 Pantoprazole Sodium 40 mg PO DAILY 09/19/17 Sennosides [Senna] 2 tab PO HS PRN 09/19/17 Sodium Chloride [Saline Nasal 45 ml NS Q4H PRN 09/19/17 [place]] Vitamin B Complex 1 each PO DAILY 09/19/17 Fluticasone/Salmeterol [Advair Hfa 1 inh PO BID 09/20/17 230-21 Mcg Inhaler] Neomycin/Polymyxn/Hc [Cortisporin 5 drop OT Q4HWA 09/20/17 Otic Solution -] Oxybutynin Chloride [Ditropan Xl] 5 mg PO DAILY 09/20/17 Polyethylene Glycol 3350 [Miralax 17 gm PO DAILY 09/20/17 (For Bowel Prep) -] Tiotropium [place] [Spiriva] 1 inh IH DAILY 09/20/17 Current Medications Generic Name Dose Route Start Last Admin Trade Name Freq PRN Reason Stop Dose Admin Acetaminophen/Butalbital/Caffeine 1 tablet 09/20/17 13:37 09/23/17 01:17 Fioricet - PO 1 tablet Q8H PRN Administration HEADACHE Albuterol Sulfate 1 amp 09/20/17 00:24 09/21/17 03:39 Ventolin 0.083% Nebulizer Soln - NEB 1 amp Q4H PRN Administration SHORT OF BREATH/WHEEZING Albuterol/Ipratropium 1 amp 09/20/17 08:00 09/23/17 11:53 Duoneb - NEB 1 amp RQID KIM Administration Benzocaine/Menthol 1 each 09/21/17 11:30 09/23/17 03:53 Cepacol Lozenge - MM 1 each PRN PRN Administration SORE THROAT Betamethasone Valerate 1 applic 09/20/17 10:00 09/23/17 09:37 Valisone 0.1% Cream - TP 1 applic BID KIM Administration Chlorhexidine Gluconate 15 ml 09/20/17 06:00 09/23/17 06:00 Peridex - MM 15 ml TID KIM Administration Fluticasone Propionate 2 spray 09/20/17 10:00 09/23/17 09:35 Flonase - NS 2 spray BID KIM Administration Gabapentin 400 mg 09/20/17 06:00 09/23/17 05:59 Neurontin - PO 400 mg TID KIM Administration Guaifenesin 10 ml 09/21/17 11:30 09/23/17 03:53 Diabetic Tussin Dm - PO 10 ml Q4H PRN Administration COUGH Hydrochlorothiazide 12.5 mg 09/20/17 10:00 09/23/17 09:29 Hctz - PO 12.5 mg DAILY KIM Administration Insulin Aspart 1 vial 09/20/17 00:45 09/23/17 11:54 Novolog Vial Sliding Scale - SQ 2 units ACHS KIM Administration Protocol Lisinopril 2.5 mg 09/20/17 10:00 09/23/17 09:29 Prinivil PO 2.5 mg DAILY KIM Administration Magnesium Oxide 400 mg 09/20/17 10:00 09/23/17 09:29 Mag-Ox - PO 400 mg DAILY KIM Administration Mirtazapine 7.5 mg 09/20/17 22:00 09/22/17 21:24 Remeron - PO 7.5 mg HS KIM Administration Multivitamins 1 each 09/20/17 10:00 09/23/17 09:32 Total B With C - PO 1 each DAILY KIM Administration Multivitamins/Minerals/Vitamin C 1 tab 09/20/17 10:00 09/23/17 09:29 Tab-A-Vit - PO 1 tab DAILY KIM Administration Neomycin/Polymyxin/Hydrocortisone 4 drop 09/20/17 06:00 09/23/17 05:59 Cortisporin Otic Suspenstion - AU 09/29/17 22:01 4 drop TID KIM Administration Pantoprazole Sodium 40 mg 09/20/17 10:00 09/23/17 09:29 Protonix - PO 40 mg DAILY KIM Administration Polyethylene Glycol 17 gm 09/20/17 10:00 09/23/17 09:30 Miralax (For Daily Use) - PO 17 gm DAILY KIM Administration Prednisone 40 mg 09/21/17 11:32 09/23/17 09:30 Deltasone - PO 40 mg DAILY KIM Administration Senna 2 tab 09/19/17 23:35 Senna - PO HS PRN CONSTIPATION Solifenacin 10 mg 09/20/17 10:00 09/23/17 09:29 Vesicare - PO 10 mg DAILY IKM Administration Topiramate 100 mg 09/20/17 10:00 09/23/17 09:33 Topamax - PO 100 mg DAILY KIM Administration ASSESSMENT AND PLAN: Patient is a 66 year old woman with a history of asthma, type 2 DM, HTN, CVA who presented to the ED with cough and SOB x 1 month. # Acute Asthma exacerbation, will continue duonebs, and albuterol pen, inhaled CS, decreased steroid to prednisone 40 mg daily, will continue with albuterol. Also important to control her triggers such as in this patient care , patient is c/o her construction in the building. # Chest pain consistent with chest wall pain since is coughing , will hold her lisinopril since can be part of the reason of coughing. will add Norvasc instead # T2DM controlled continue regimen # HTn discontinued Lisinopril since can be the trigger for her cough and continue with Norvasc. # Patient has a 24h care at home, since having a construction at home which is aggregating her asthma exacerbation, Patient will benefit ftom SnF , SNF placement with rehab until home situation is no longer a risk to her respiratory status. DVT Px: Lovenox 40mg sq rehab placement. Visit type - Emergency Visit Emergency Visit: Yes ED Registration Date: 09/21/17 Care time: The patient presented to the Emergency Department on the above date and was hospitalized for further evaluation of their emergent condition. - New Patient This patient is new to me today: Yes Date on this admission: 09/22/17 - Critical Care Critical Care patient: No - Discharge Referral Referred to [facility] No
[2017-09-23] MEDS: amLODIPine BESYLATE 5 MG TABLET (FP) PO SCH (13:57)
[2017-09-23] MEDS: MIRTAZAPINE 15 MG TABLET (FP) PO SCH (21:21)
[2017-09-24] MEDS: ACETAMINOPHEN/CAFFEINE/BUTALBITAL 1 TAB PO PRN ×3 (00:19→21:30)
[2017-09-24] MEDS ORDERED: PT OWN MED DRAWER 7, Y5N ONE ×7 (05:50→21:28)
[2017-09-24] MEDS: NEOMYCIN/POLYMYXN/HC OTIC SUSPENSION 10 ML BOTTLE AU SCH ×3 (05:53→21:32)
[2017-09-24] MEDS: CHLORHEXIDINE GLUCONATE 0.12% 15ML CUP MM SCH ×3 (05:53→21:32)
[2017-09-24] MEDS: GABAPENTIN 400 MG CAPSULE (FP) PO SCH ×3 (05:54→21:30)
[2017-09-24] MEDS: INSULIN SLIDING SCALE (NOVOLOG) 1 VIAL SQ SCH ×4 (06:14→21:45)
[2017-09-24 06:51] LABS: HEMATOCRIT 39.4 % (32.4-45.2); HEMOGLOBIN 13.2 GM/dL (10.7-15.3); MCH 30.9 pg (25.7-33.7); MCHC 33.5 g/dl (32.0-36.0); MEAN CELL VOLUME 92.4 fl (80-96); MEAN PLT VOLUME 8.4 fl (7.5-11.1); PLATELET COUNT 314 K/MM3 (134-434); RBC 4.27 M/mm3 (3.60-5.2); RDW 14.2 % (11.6-15.6); WHITE BLOOD COUNT 10.2 K/mm3 (4.0-10.0)
[2017-09-24 07:18] LABS: ALBUMIN 4.4 g/dl (3.4-5.0); ALK PHOS 81 U/L (45-117); ANION GAP 10 (8-16); BILIRUBIN,TOTAL 0.3 mg/dL (0.2-1.0); BLOOD UREA NITROGEN 16 mg/dL (7-18); CALCIUM 10.4 mg/dL (8.5-10.1); CHLORIDE 104 mmol/L (98-107); CO2 29 mmol/L (21-32); CREATININE 1.2 mg/dL (0.55-1.02); GLUCOSE,RANDOM 89 mg/dL (74-106); MAGNESIUM 2.2 mg/dL (1.8-2.4); PHOSPHOROUS 3.9 mg/dL (2.5-4.9); POTASSIUM 4.1 mmol/L (3.5-5.1); SGOT/AST 15 U/L (15-37); SGPT/ALT 28 U/L (12-78); SODIUM 143 mmol/L (136-145); TOT PROT 8.2 g/dl (6.4-8.2)
[2017-09-24] MEDS: ALBUTEROL SO4 2.5/IPRATROPIUM 0.5 INH SOL 3 ML VIAL.NEB. NEB SCH ×4 (07:20→20:30)
[2017-09-24] MEDS: PANTOPRAZOLE 40 MG TABLET (FP) PO SCH (09:26)
[2017-09-24] MEDS: SOLIFENACIN SUCCINATE 5 MG TAB (FP) PO SCH (09:26)
[2017-09-24] MEDS: predniSONE 20 MG TABLET (UD) PO SCH (09:26)
[2017-09-24] MEDS: amLODIPine BESYLATE 5 MG TABLET (FP) PO SCH (09:27)
[2017-09-24] MEDS: MULTIVITAMINS (DAILY MVI) TABLET (FP) PO SCH (09:27)
[2017-09-24] MEDS: MAGNESIUM OXIDE 400 MG TABLET (FP) PO SCH (09:27)
[2017-09-24] MEDS: FLUTICASONE PROP 0.05% 16 GM NASAL SPRAY NS SCH ×2 (09:28→21:32)
[2017-09-24] MEDS: POLYETHYLENE GLYCOL 3350 119 GM BTL PO SCH (09:29)
[2017-09-24] MEDS: VITAMIN B COMPLEX W/C COMBO TABLET (FP) PO SCH (09:30)
[2017-09-24] MEDS: TOPIRAMATE 100 MG TABLET PO SCH (09:31)
[2017-09-24] MEDS: BETAMETHASONE VALERATE 0.1% CREAM 15 GM TUBE TP SCH ×2 (09:32→21:32)
[2017-09-24 11:27] LABS: ANISOCYTOSIS 0; PLATELET ESTIMATE NORMAL
--- NOTE | 2017-09-24 19:19 | PN ---
Addendum entered and electronically signed by Bebeto Bianchi, RESIDENT 09/24/17 19:49: Patient meets diagnostic criteria for acute exacerbation of severe asthma based off of her SOB and cough necessitating treatment with nebulizers and IV steroids. Original Note: <Bebeto Bianchi - Last Filed: 09/24/17 19:14> Physical Exam: SUBJECTIVE: Patient seen and examined at bedside. She continues to c/o the same reproducible chest pain. Breathing and cough improved. OBJECTIVE: Vital Signs Period Temp Pulse Resp BP Sys/Hewitt Pulse Ox Last 24 Hr 97.4 F-98.4 F 80-101 18-20 96-135/51-72 97-99 GENERAL: The patient is awake, alert, and fully oriented, in no acute distress. HEAD: Normal with no signs of trauma. NECK: Trachea midline, full range of motion, supple. LUNGS: Clear to auscultation b/l aeration improved today. No wheezing. Patient' s cough improved HEART: Regular rate and rhythm, S1, S2 without murmur, rub or gallop. The patient's chest pain is reproducible on palpation of the chest wall; improved today. ABDOMEN: Soft, nontender, nondistended, normoactive bowel sounds, no guarding, no rebound, no hepatosplenomegaly, no masses. EXTREMITIES: 2+ pulses, warm, well-perfused, no edema. NEUROLOGICAL: Cranial nerves II through X grossly intact. Normal speech, gait not observed. PSYCH: Normal mood, normal affect. SKIN: Warm, dry, normal turgor, no rashes or lesions noted Laboratory Results - last 24 hr 09/23/17 09/24/17 09/24/17 20:24 05:44 06:26 WBC 10.2 H D RBC 4.27 Hgb 13.2 D Hct 39.4 MCV 92.4 MCH 30.9 MCHC 33.5 RDW 14.2 Plt Count 314 MPV 8.4 Neutrophils % No Result Required. Neutrophils % (Manual) 38.9 L Band Neutrophils % 0.0 Lymphocytes % No Result Required. Lymphocytes % (Manual) 56.8 H Monocytes % (Manual) 3 L Eosinophils % (Manual) 0.0 D Basophils % (Manual) 0.0 Myelocytes % (Man) 0 Promyelocytes % (Man) 0 Blast Cells % (Manual) 0 Nucleated RBC % 0 Metamyelocytes 0 Platelet Estimate Normal Poikilocytosis 0 Anisocytosis 0 Sodium Potassium Chloride Carbon Dioxide Anion Gap BUN Creatinine Creat Clearance w eGFR POC Glucometer 216 94 Random Glucose Calcium Phosphorus Magnesium Total Bilirubin AST ALT Alkaline Phosphatase Total Protein Albumin 09/24/17 09/24/17 09/24/17 06:26 11:52 16:41 WBC RBC Hgb Hct MCV MCH MCHC RDW Plt Count MPV Neutrophils % Neutrophils % (Manual) Band Neutrophils % Lymphocytes % Lymphocytes % (Manual) Monocytes % (Manual) Eosinophils % (Manual) Basophils % (Manual) Myelocytes % (Man) Promyelocytes % (Man) Blast Cells % (Manual) Nucleated RBC % Metamyelocytes Platelet Estimate Poikilocytosis Anisocytosis Sodium 143 Potassium 4.1 Chloride 104 Carbon Dioxide 29 Anion Gap 10 BUN 16 Creatinine 1.2 H Creat Clearance w eGFR 45.09 POC Glucometer 140 246 Random Glucose 89 Calcium 10.4 H Phosphorus 3.9 Magnesium 2.2 Total Bilirubin 0.3 AST 15 ALT 28 Alkaline Phosphatase 81 Total Protein 8.2 Albumin 4.4 Active Medications Generic Name Dose Route Start Last Admin Trade Name Freq PRN Reason Stop Dose Admin Albuterol Sulfate 1 amp 09/20/17 00:24 09/21/17 03:39 Ventolin 0.083% Nebulizer Soln - NEB 1 amp Q4H PRN Administration SHORT OF BREATH/WHEEZING Albuterol/Ipratropium 1 amp 09/20/17 08:00 09/24/17 16:15 Duoneb - NEB 1 amp RQID KIM Administration Amlodipine Besylate 5 mg 09/23/17 12:45 09/24/17 09:27 Norvasc - PO 5 mg DAILY KIM Administration Benzocaine/Menthol 1 each 09/21/17 11:30 09/23/17 03:53 Cepacol Lozenge - MM 1 each PRN PRN Administration SORE THROAT Betamethasone Valerate 1 applic 09/20/17 10:00 09/24/17 09:32 Valisone 0.1% Cream - TP 1 applic BID KIM Administration Chlorhexidine Gluconate 15 ml 09/20/17 06:00 09/24/17 13:11 Peridex - MM 15 ml TID KIM Administration Fluticasone Propionate 2 spray 09/20/17 10:00 09/24/17 09:28 Flonase - NS 2 spray BID KIM Administration Gabapentin 400 mg 09/20/17 06:00 09/24/17 13:07 Neurontin - PO 400 mg TID KIM Administration Guaifenesin 10 ml 09/21/17 11:30 09/23/17 21:22 Diabetic Tussin Dm - PO 10 ml Q4H PRN Administration COUGH Insulin Aspart 1 vial 09/20/17 00:45 09/24/17 16:43 Novolog Vial Sliding Scale - SQ 4 units ACHS KIM Administration Protocol Magnesium Oxide 400 mg 09/20/17 10:00 09/24/17 09:27 Mag-Ox - PO 400 mg DAILY KIM Administration Mirtazapine 7.5 mg 09/20/17 22:00 09/23/17 21:21 Remeron - PO 7.5 mg HS KIM Administration Multivitamins 1 each 09/20/17 10:00 09/24/17 09:30 Total B With C - PO 1 each DAILY KIM Administration Multivitamins/Minerals/Vitamin C 1 tab 09/20/17 10:00 09/24/17 09:27 Tab-A-Vit - PO 1 tab DAILY KIM Administration Neomycin/Polymyxin/Hydrocortisone 4 drop 09/20/17 06:00 09/24/17 13:08 Cortisporin Otic Suspenstion - AU 09/29/17 22:01 4 drop TID KIM Administration Pantoprazole Sodium 40 mg 09/20/17 10:00 09/24/17 09:26 Protonix - PO 40 mg DAILY KIM Administration Polyethylene Glycol 17 gm 09/20/17 10:00 09/24/17 09:29 Miralax (For Daily Use) - PO 17 gm DAILY KIM Administration Prednisone 40 mg 09/21/17 11:32 09/24/17 09:26 Deltasone - PO 40 mg DAILY KIM Administration Senna 2 tab 09/19/17 23:35 09/23/17 21:21 Senna - PO 2 tab HS PRN Administration CONSTIPATION Solifenacin 10 mg 09/20/17 10:00 09/24/17 09:26 Vesicare - PO 10 mg DAILY KIM Administration Topiramate 100 mg 09/20/17 10:00 09/24/17 09:31 Topamax - PO 100 mg DAILY KIM Administration ASSESSMENT/PLAN: 66 yo F with a PMHx of Asthma, DM, HTN, CVA (left sided weakness), presented because of worsening dyspnea and cough over the last month. #chest pain likely 2/2 asthma exacerbation w/ costochondritis. -trops negative x2 -EKG WNL -Echo WNL -Lipids WNL -pain improved today #Shortness of breath and cough likely 2/2 Viral Bronchitis/Asthma Exacerbation -c/w Duonebs standing and PRN -Prednisone 40mg po today. Will taper to 35 tomorrow. -robitussin -Cepacol drops -cough improved on above treatment. -physical exam improved #CVA tenderness on exam likely 2/2 costochondritis 2/2 cough- resolved #DM -BGM ACHS -ISS ACHS -HgbA1c 7.6 #HTN -C/w home HCTZ 12.5 -c/w home Lisinopril 2.5mg #FEN -no fluids indicated -monitor lytes -diabetic diet #PPX -SCDs #Dispo -admit to tele obs -pending SNF placement until construction in her apartment is finished. Visit type - Emergency Visit Emergency Visit: Yes ED Registration Date: 09/21/17 Care time: The patient presented to the Emergency Department on the above date and was hospitalized for further evaluation of their emergent condition. - New Patient This patient is new to me today: No - Critical Care Critical Care patient: No <Tina Sandhu - Last Filed: 09/24/17 20:01> Physical Exam: Patient is comfortable with no acute distress, waiting for placement. Vital Signs Temperature 98.3 F 09/24/17 18:00 Pulse Rate 99 H 09/24/17 18:00 Respiratory Rate 19 09/24/17 18:00 Blood Pressure 124/70 09/24/17 18:00 O2 Sat by Pulse Oximetry (%) 97 09/24/17 09:00 CBCD WBC 10.2 K/mm3 (4.0-10.0) H D 09/24/17 06:26 RBC 4.27 M/mm3 (3.60-5.2) 09/24/17 06:26 Hgb 13.2 GM/dL (10.7-15.3) D 09/24/17 06:26 Hct 39.4 % (32.4-45.2) 09/24/17 06:26 MCV 92.4 fl (80-96) 09/24/17 06:26 MCHC 33.5 g/dl (32.0-36.0) 09/24/17 06:26 RDW 14.2 % (11.6-15.6) 09/24/17 06:26 Plt Count 314 K/MM3 (134-434) 09/24/17 06:26 MPV 8.4 fl (7.5-11.1) 09/24/17 06:26 CMP Sodium 143 mmol/L (136-145) 09/24/17 06:26 Potassium 4.1 mmol/L (3.5-5.1) 09/24/17 06:26 Chloride 104 mmol/L (98-107) 09/24/17 06:26 Carbon Dioxide 29 mmol/L (21-32) 09/24/17 06:26 Anion Gap 10 (8-16) 09/24/17 06:26 BUN 16 mg/dL (7-18) 09/24/17 06:26 Creatinine 1.2 mg/dL (0.55-1.02) H 09/24/17 06:26 Creat Clearance w eGFR 45.09 (>60) 09/24/17 06:26 Random Glucose 89 mg/dL (74-106) 09/24/17 06:26 Calcium 10.4 mg/dL (8.5-10.1) H 09/24/17 06:26 Total Bilirubin 0.3 mg/dL (0.2-1.0) 09/24/17 06:26 AST 15 U/L (15-37) 09/24/17 06:26 ALT 28 U/L (12-78) 09/24/17 06:26 Alkaline Phosphatase 81 U/L (45-117) 09/24/17 06:26 Total Protein 8.2 g/dl (6.4-8.2) 09/24/17 06:26 Albumin 4.4 g/dl (3.4-5.0) 09/24/17 06:26 CARDIAC ENZYMES Creatine Kinase 138 IU/L (26-192) 09/19/17 20:06 Troponin I < 0.02 ng/ml (0.00-0.05) 09/20/17 02:05 Current Medications Generic Name Dose Route Start Last Admin Trade Name Freq PRN Reason Stop Dose Admin Acetaminophen/Butalbital/Caffeine 1 tablet 09/24/17 19:35 Fioricet - PO Q8H PRN HEADACHE Albuterol Sulfate 1 amp 09/20/17 00:24 09/21/17 03:39 Ventolin 0.083% Nebulizer Soln - NEB 1 amp Q4H PRN Administration SHORT OF BREATH/WHEEZING Albuterol/Ipratropium 1 amp 09/20/17 08:00 09/24/17 16:15 Duoneb - NEB 1 amp RQID KIM Administration Amlodipine Besylate 5 mg 09/23/17 12:45 09/24/17 09:27 Norvasc - PO 5 mg DAILY KIM Administration Benzocaine/Menthol 1 each 09/21/17 11:30 09/23/17 03:53 Cepacol Lozenge - MM 1 each PRN PRN Administration SORE THROAT Betamethasone Valerate 1 applic 09/20/17 10:00 09/24/17 09:32 Valisone 0.1% Cream - TP 1 applic BID KIM Administration Chlorhexidine Gluconate 15 ml 09/20/17 06:00 09/24/17 13:11 Peridex - MM 15 ml TID KIM Administration Fluticasone Propionate 2 spray 09/20/17 10:00 09/24/17 09:28 Flonase - NS 2 spray BID KIM Administration Gabapentin 400 mg 09/20/17 06:00 09/24/17 13:07 Neurontin - PO 400 mg TID KIM Administration Guaifenesin 10 ml 09/21/17 11:30 09/23/17 21:22 Diabetic Tussin Dm - PO 10 ml Q4H PRN Administration COUGH Insulin Aspart 1 vial 09/20/17 00:45 09/24/17 16:43 Novolog Vial Sliding Scale - SQ 4 units ACHS KIM Administration Protocol Magnesium Oxide 400 mg 09/20/17 10:00 09/24/17 09:27 Mag-Ox - PO 400 mg DAILY KIM Administration Mirtazapine 7.5 mg 09/20/17 22:00 09/23/17 21:21 Remeron - PO 7.5 mg HS KIM Administration Multivitamins 1 each 09/20/17 10:00 09/24/17 09:30 Total B With C - PO 1 each DAILY KIM Administration Multivitamins/Minerals/Vitamin C 1 tab 09/20/17 10:00 09/24/17 09:27 Tab-A-Vit - PO 1 tab DAILY KIM Administration Neomycin/Polymyxin/Hydrocortisone 4 drop 09/20/17 06:00 09/24/17 13:08 Cortisporin Otic Suspenstion - AU 09/29/17 22:01 4 drop TID KIM Administration Pantoprazole Sodium 40 mg 09/20/17 10:00 09/24/17 09:26 Protonix - PO 40 mg DAILY KIM Administration Polyethylene Glycol 17 gm 09/20/17 10:00 09/24/17 09:29 Miralax (For Daily Use) - PO 17 gm DAILY KIM Administration Prednisone 40 mg 09/21/17 11:32 09/24/17 09:26 Deltasone - PO 40 mg DAILY KIM Administration Senna 2 tab 09/19/17 23:35 09/23/17 21:21 Senna - PO 2 tab HS PRN Administration CONSTIPATION Solifenacin 10 mg 09/20/17 10:00 09/24/17 09:26 Vesicare - PO 10 mg DAILY KIM Administration Topiramate 100 mg 09/20/17 10:00 09/24/17 09:31 Topamax - PO 100 mg DAILY KIM Administration Home Medications Medication Instructions Recorded Gabapentin [Neurontin] 400 mg PO TID 03/23/15 Topiramate [Topamax] 100 mg PO DAILY 03/23/15 Albuterol 0.083% Nebulizer Luz [place] 1 neb NEB Q4H PRN 02/07/16 [Ventolin 0.083% Nebulizer Soln -] Ipratropium [place] [Atrovent] 15 ml NS BID 02/07/16 Multivitamin [Poly-Vitamin] 1 each PO DAILY 02/07/16 Mirtazapine 7.5 mg PO DAILY 06/27/17 Azelastine HCl 205.5 mcg NS BID 09/19/17 Butalb/Acetaminophen/Caffeine 1 each PO Q8H PRN 09/19/17 [Fioricet 50-300-40 mg Capsule] Chlorhexidine Gluconate 15 ml MM TID 09/19/17 Guaifenesin/Dextromethorphan 10 ml PO Q4H PRN 09/19/17 [Tussin Dm Cough Syrup] Hydrochlorothiazide 12.5 mg PO DAILY 09/19/17 Ketotifen Fumarate 5 ml OP BID 09/19/17 Lidocaine 5% Patch [Lidoderm -] 1 patch TP DAILY 09/19/17 Magnesium Oxide [Magnesium] 400 mg PO DAILY 09/19/17 Pantoprazole Sodium 40 mg PO DAILY 09/19/17 Sennosides [Senna] 2 tab PO HS PRN 09/19/17 Sodium Chloride [Saline Nasal 45 ml NS Q4H PRN 09/19/17 [place]] Vitamin B Complex 1 each PO DAILY 09/19/17 Fluticasone/Salmeterol [Advair Hfa 1 inh PO BID 09/20/17 230-21 Mcg Inhaler] Neomycin/Polymyxn/Hc [Cortisporin 5 drop OT Q4HWA 09/20/17 *Otic Solution*-] Oxybutynin Chloride [Ditropan Xl] 5 mg PO DAILY 09/20/17 Polyethylene Glycol 3350 [Miralax 17 gm PO DAILY 09/20/17 255 gm Btl -] Tiotropium [place] [Spiriva] 1 inh IH DAILY 09/20/17 Amlodipine Besylate [Norvasc -] 5 mg PO DAILY #30 tablet 09/24/17 Prednisone See Taper PO ASDIR #32 tablet 09/24/17
[2017-09-24] MEDS: MIRTAZAPINE 15 MG TABLET (FP) PO SCH (21:30)
[2017-09-24] MEDS ORDERED: INSULIN (NOVOLOG) ASPART 100 UNITS/ML 10ML VIAL ONE (21:42)
[2017-09-25] MEDS ORDERED: PT OWN MED DRAWER 7, Y5N ONE ×2 (02:07→05:27)
[2017-09-25] MEDS: guaiFENesin/D-M SUGAR-FREE/ACLHOL-FREE 118 ML BOTTLE PO PRN (02:09)
--- NOTE | 2017-09-25 05:29 | PN ---
Progress Note (short form) - Note Progress Note: Received call from nurse that patient is complaining of numbness and cramping in thighs. Prior to entering patient room to examine patient, was notified by nurse that patient went to sleep and had no complaints. Vital signs stable. Will monitor. Also notified nurse to monitor patient.
[2017-09-25] MEDS: CHLORHEXIDINE GLUCONATE 0.12% 15ML CUP MM SCH (05:31)
[2017-09-25] MEDS: NEOMYCIN/POLYMYXN/HC OTIC SUSPENSION 10 ML BOTTLE AU SCH ×2 (05:31→15:21)
[2017-09-25] MEDS: GABAPENTIN 400 MG CAPSULE (FP) PO SCH ×2 (05:31→15:21)
[2017-09-25] MEDS: INSULIN SLIDING SCALE (NOVOLOG) 1 VIAL SQ SCH ×3 (06:00→17:07)
[2017-09-25] MEDS: ALBUTEROL SO4 2.5/IPRATROPIUM 0.5 INH SOL 3 ML VIAL.NEB. NEB SCH ×3 (08:04→16:50)
[2017-09-25 08:13] LABS: HEMATOCRIT 38.8 % (32.4-45.2); HEMOGLOBIN 12.9 GM/dL (10.7-15.3); MCH 30.7 pg (25.7-33.7); MCHC 33.4 g/dl (32.0-36.0); MEAN PLT VOLUME 8.3 fl (7.5-11.1); PLATELET COUNT 287 K/MM3 (134-434); RBC 4.22 M/mm3 (3.60-5.2); RDW 14.2 % (11.6-15.6)
[2017-09-25 08:54] LABS: ANION GAP 9 (8-16); BLOOD UREA NITROGEN 14 mg/dL (7-18); CALCIUM 10.3 mg/dL (8.5-10.1); CHLORIDE 104 mmol/L (98-107); CO2 28 mmol/L (21-32); CREATININE 1.1 mg/dL (0.55-1.02); GLUCOSE,RANDOM 88 mg/dL (74-106); POTASSIUM 4.3 mmol/L (3.5-5.1); SODIUM 141 mmol/L (136-145)
[2017-09-25] MEDS: amLODIPine BESYLATE 5 MG TABLET (FP) PO SCH (09:09)
[2017-09-25] MEDS: PANTOPRAZOLE 40 MG TABLET (FP) PO SCH (09:09)
[2017-09-25] MEDS: predniSONE 20 MG TABLET (UD) PO SCH (09:09)
[2017-09-25] MEDS: MULTIVITAMINS (DAILY MVI) TABLET (FP) PO SCH (09:09)
[2017-09-25] MEDS: MAGNESIUM OXIDE 400 MG TABLET (FP) PO SCH (09:09)
[2017-09-25] MEDS: SOLIFENACIN SUCCINATE 5 MG TAB (FP) PO SCH (09:09)
[2017-09-25] MEDS: POLYETHYLENE GLYCOL 3350 119 GM BTL PO SCH (09:10)
[2017-09-25] MEDS: FLUTICASONE PROP 0.05% 16 GM NASAL SPRAY NS SCH (09:10)
[2017-09-25] MEDS: TOPIRAMATE 100 MG TABLET PO SCH (09:11)
[2017-09-25] MEDS: VITAMIN B COMPLEX W/C COMBO TABLET (FP) PO SCH (09:11)
[2017-09-25] MEDS: BETAMETHASONE VALERATE 0.1% CREAM 15 GM TUBE TP SCH (09:11)
[2017-09-25] MEDS: ACETAMINOPHEN/CAFFEINE/BUTALBITAL 1 TAB PO PRN (09:20)
[2017-09-25] MEDS ORDERED: SODIUM CHLORIDE 1,000 ML IV SCH ×2 (10:30→16:26)
[2017-09-25 12:45] LABS: MAGNESIUM 2.3 mg/dL (1.8-2.4)
[2017-09-25] MEDS: ALBUTEROL SO4 0.083% IH SOL 2.5 MG/3 ML VIAL.NEB. NEB PRN (13:38)
--- NOTE | 2017-09-25 13:45 | DS ---
Physical Exam: SUBJECTIVE: Patient seen and examined at bedside. The patient states her breathing is easier and her cough is better. Still has reproducible chest pain. OBJECTIVE: Vital Signs Period Temp Pulse Resp BP Sys/Hewitt Pulse Ox Last 24 Hr 98.1 F-98.6 F 68-101 16-20 109-136/56-70 96-96 PHYSICAL EXAM GENERAL: The patient is awake, alert, and fully oriented, in no acute distress. HEAD: Normal with no signs of trauma. NECK: Trachea midline, full range of motion, supple. LUNGS: Clear to auscultation b/l aeration improved today. No wheezing. Patient' s cough improved HEART: Regular rate and rhythm, S1, S2 without murmur, rub or gallop. The patient's chest pain is reproducible on palpation of the chest wall; improved today. ABDOMEN: Soft, nontender, nondistended, normoactive bowel sounds, no guarding, no rebound, no hepatosplenomegaly, no masses. EXTREMITIES: 2+ pulses, warm, well-perfused, no edema. NEUROLOGICAL: Cranial nerves II through X grossly intact. Normal speech, gait not observed. PSYCH: Normal mood, normal affect. SKIN: Warm, dry, normal turgor, no rashes or lesions noted LABS Laboratory Results - last 24 hr 09/24/17 09/24/17 09/25/17 16:41 21:41 05:30 WBC RBC Hgb Hct MCV MCH MCHC RDW Plt Count MPV Sodium Potassium Chloride Carbon Dioxide Anion Gap BUN Creatinine POC Glucometer 246 193 105 Random Glucose Calcium Phosphorus Magnesium 09/25/17 09/25/17 09/25/17 07:15 07:15 07:15 WBC 10.0 RBC 4.22 Hgb 12.9 Hct 38.8 MCV 92.0 MCH 30.7 MCHC 33.4 RDW 14.2 Plt Count 287 MPV 8.3 Sodium 141 Potassium 4.3 Chloride 104 Carbon Dioxide 28 Anion Gap 9 BUN 14 Creatinine 1.1 H POC Glucometer Random Glucose 88 Calcium 10.3 H Phosphorus 4.0 Cancelled Magnesium 2.3 Cancelled 09/25/17 11:33 WBC RBC Hgb Hct MCV MCH MCHC RDW Plt Count MPV Sodium Potassium Chloride Carbon Dioxide Anion Gap BUN Creatinine POC Glucometer 131 Random Glucose Calcium Phosphorus Magnesium HOSPITAL COURSE: Date of Admission:09/21/17 The patient is a 66 yo F with a PMHx of Asthma, DM, HTN, CVA (left sided weakness) who presented to the ED c/o a 1 month history of worsening dyspnea and cough since construction started in her building. She also complained about assiciated chest pain. In the ED, the patient had diminished breath sounds bilaterally. Vital signs were WNL. CBC and CMP were both unremarkable. A CXR showed no acute changes. The patient was admitted for further treatment of an acute exacerbation of severe asthma as well as to rule out ACS. The patient was treated with Prednisone as well as Duonebs standing and PRN. The patient improved on this treatment. Her troponins were negative x2 and her EKG showed sinus tachycardia with no other abnormalities. Her breathing get easier and her cough became less frequent. Her hospital course was complcated by hypertension, which was treated with the addition of Norvasc. The patient was placed in SNF as she was not able to return to apartment with the construction creating dust. The patient was discharged with a prescription for Norvasc 5mg daily as well as a 6 day Prednisone taper. She was instructed to follow up with her primary care physician as well as a Proof Sorter within 1 week. Date of Discharge: 09/25/17 Minutes to complete discharge: 78 <Bebeto Bianchi - Last Filed: 09/25/17 13:54> Physical Exam: Patient seen and examined with the internal combustion engine subassembler, patient is being discharged to rehab. Duplex of lower extremity is negative for DVT. Her calcium level is slightly elevated. we stopped her multi Vitamin. needs to be rechecked in 2 weeks. <Tina Sandhu - Last Filed: 09/25/17 14:24> Discharge Summary Reason For Visit: EXACERBATION OF ASTHMA, CHEST PAIN Current Active Problems Acute severe exacerbation of severe persistent allergic asthma (Acute) Asthma exacerbation (Acute) Chest pain (Acute) - Home Medications Comprehensive Discharge Medication List: Ambulatory Orders Gabapentin [Neurontin] 400 mg PO TID 03/23/15 Topiramate [Topamax] 100 mg PO DAILY 03/23/15 Albuterol 0.083% Nebulizer Luz Marina [Ventolin 0.083% Nebulizer Soln -] 1 neb NEB Q4H PRN 02/07/16 Ipratropium [place] [Atrovent] 15 ml NS BID 02/07/16 Multivitamin [Poly-Vitamin] 1 each PO DAILY 02/07/16 Mirtazapine 7.5 mg PO DAILY 06/27/17 Azelastine HCl 205.5 mcg NS BID 09/19/17 Butalb/Acetaminophen/Caffeine [Fioricet 50-300-40 mg Capsule] 1 each PO Q8H PRN 09/19/17 Chlorhexidine Gluconate 15 ml MM TID 09/19/17 Guaifenesin/Dextromethorphan [Tussin Dm Cough Syrup] 10 ml PO Q4H PRN 09/19/17 Hydrochlorothiazide 12.5 mg PO DAILY 09/19/17 Ketotifen Fumarate 5 ml OP BID 09/19/17 Lidocaine 5% Patch [Lidoderm -] 1 patch TP DAILY 09/19/17 Magnesium Oxide [Magnesium] 400 mg PO DAILY 09/19/17 Pantoprazole Sodium 40 mg PO DAILY 09/19/17 Sennosides [Senna] 2 tab PO HS PRN 09/19/17 Sodium Chloride [Saline Nasal Maxwell] 45 ml NS Q4H PRN 09/19/17 Vitamin B Complex 1 each PO DAILY 09/19/17 Fluticasone/Salmeterol [Advair Hfa 230-21 Mcg Inhaler] 1 inh PO BID 09/20/17 Neomycin/Polymyxn/Hc [Cortisporin *Otic Solution*-] 5 drop OT Q4HWA 09/20/17 Oxybutynin Chloride [Ditropan Xl] 5 mg PO DAILY 09/20/17 Polyethylene Glycol 3350 [Miralax 255 gm Btl -] 17 gm PO DAILY 09/20/17 Tiotropium [place] [Spiriva] 1 inh IH DAILY 09/20/17 Amlodipine Besylate [Norvasc -] 5 mg PO DAILY #30 tablet 09/24/17 Prednisone See Taper PO ASDIR #32 tablet 09/24/17 <Bebeto Bianchi - Last Filed: 09/25/17 13:54> Current Active Problems Acute severe exacerbation of severe persistent allergic asthma (Acute) Asthma exacerbation (Acute) Chest pain (Acute) - Home Medications Comprehensive Discharge Medication List: Ambulatory Orders Gabapentin [Neurontin] 400 mg PO TID 03/23/15 Topiramate [Topamax] 100 mg PO DAILY 03/23/15 Albuterol 0.083% Nebulizer Luz Marina [Ventolin 0.083% Nebulizer Soln -] 1 neb NEB Q4H PRN 02/07/16 Ipratropium [place] [Atrovent] 15 ml NS BID 02/07/16 Multivitamin [Poly-Vitamin] 1 each PO DAILY 02/07/16 Mirtazapine 7.5 mg PO DAILY 06/27/17 Azelastine HCl 205.5 mcg NS BID 09/19/17 Butalb/Acetaminophen/Caffeine [Fioricet 50-300-40 mg Capsule] 1 each PO Q8H PRN 09/19/17 Chlorhexidine Gluconate 15 ml MM TID 09/19/17 Guaifenesin/Dextromethorphan [Tussin Dm Cough Syrup] 10 ml PO Q4H PRN 09/19/17 Hydrochlorothiazide 12.5 mg PO DAILY 09/19/17 Ketotifen Fumarate 5 ml OP BID 09/19/17 Lidocaine 5% Patch [Lidoderm -] 1 patch TP DAILY 09/19/17 Magnesium Oxide [Magnesium] 400 mg PO DAILY 09/19/17 Pantoprazole Sodium 40 mg PO DAILY 09/19/17 Sennosides [Senna] 2 tab PO HS PRN 09/19/17 Sodium Chloride [Saline Nasal Maxwell] 45 ml NS Q4H PRN 09/19/17 Vitamin B Complex 1 each PO DAILY 09/19/17 Fluticasone/Salmeterol [Advair Hfa 230-21 Mcg Inhaler] 1 inh PO BID 09/20/17 Neomycin/Polymyxn/Hc [Cortisporin *Otic Solution*-] 5 drop OT Q4HWA 09/20/17 Oxybutynin Chloride [Ditropan Xl] 5 mg PO DAILY 09/20/17 Polyethylene Glycol 3350 [Miralax 255 gm Btl -] 17 gm PO DAILY 09/20/17 Tiotropium [place] [Spiriva] 1 inh IH DAILY 09/20/17 Amlodipine Besylate [Norvasc -] 5 mg PO DAILY #30 tablet 09/24/17 Prednisone See Taper PO ASDIR #32 tablet 09/24/17 <Tina Sandhu - Last Filed: 09/25/17 14:24> Condition: Improved - Instructions Diet, Activity, Other Instructions: You were admitted for an acute asthma exacerbation. You were treated with prednisone and duonebs. You are being transferred for rehabilition to improve your strength and because there is construction occurring in your building which is likely exacerbating your asthma. Follow-up, once discharged see your primary care provider and your bait packer , a lung doctor, for post-hospital evaluation. If you do not have a pulmnologist , contact information for Dr. Bridges has been provided for you. Please call to make an appointment. Medication changes: STOP taking your lisinopril for your blood pressure, it was stopped to reduce any causes of your cough. START taking Norvasc 5mg 1 tablet daily Continue your other home medications are prescribed and use your nebulizer as needed. We are sending you home on a steroid to help open your airways hand help you breathe easier. Please take this medication according to the following taper: on 09/26, take 40mg of Prednisone on 09/27, take 35mg of Prednisone on 09/28, take 30mg of Prednisone on 09/29, take 25mg of Prednisone on 09/30, take 20mg of Prednisone on 10/01, take 10mg of Prednisone, your last dose on 10/02, STOP taking Prednisone If you develop chest pain, worsening cough, cough up blood, have trouble breathing, fevers, or any other new symptoms, please return to the hospital. Referrals: Henok Valderrama MD [Primary Care Provider] - Ashok Bridges MD, MD [Staff Physician] - Disposition: INTERMEDIATE FACILITY - Discharge Referral Referred to [facility] No <Bebeto Bianchi - Last Filed: 09/25/17 13:54> This patient is new to me today: Yes Date on this admission: 09/25/17 Emergency Visit: Yes ED Registration Date: 09/21/17 Care time: The patient presented to the Emergency Department on the above date and was hospitalized for further evaluation of their emergent condition. Critical Care patient: No - Discharge Referral Referred to [facility] No <Tina Sandhu - Last Filed: 09/25/17 14:24>
[2017-09-25 14:59] VITALS: BP 110/53; PULSE 90; TEMP 98.9
[2017-09-25] MEDS ORDERED: CHLORHEXIDINE GLUCONATE 0.12% 15ML CUP MM SCH (22:00)
== END 2017-09-25 18:27 | DRG 202 ==
LOC: JER 17:11 → JERBED 22:12 → J4S 09-20 01:54 → OBSVTOIN 09-21 11:27
PROVIDERS: ADMIT Internal Medicine; ATTEND Internal Medicine
DX: J45.51 Severe persistent asthma with (acute) exacerbation (principal); I69.354 Hemiplegia and hemiparesis following cerebral infarction affecting left non-dominant side; E11.9 Type 2 diabetes mellitus without complications; I10 Essential (primary) hypertension; K21.9 Gastro-esophageal reflux disease without esophagitis; J20.8 Acute bronchitis due to other specified organisms; I25.10 Atherosclerotic heart disease of native coronary artery without angina pectoris; E78.5 Hyperlipidemia, unspecified; R07.9 Chest pain, unspecified
CPT/HCPCS: 36415; 71046-TC-FY; 80048; 80053; 80061; 81003; 82550; 82962; 83036; 83690; 83721; 83735; 83880; 84100; 84484; 85025; 85027; 85610; 87804; 93005; 93010; 93306-TC; 93971-TC; 94150; 94640; 97116-GP; 97161-GP; 99283-25; G0378; J0131; J7030; J7620

== ENCOUNTER 2018-02-05 10:52 | Emergency (ER) | payer OTHER ==
[2018-02-05 11:06] VITALS: BP 117/53; PULSE 89; TEMP 98.9; BMI 32.4
--- NOTE | 2018-02-05 11:37 | PDOC ---
History of Present Illness - General Chief Complaint: Injury Stated Complaint: FALL,PAIN IN SHOULDER, KNEE, L SIDE OF FACE Time Seen by Provider: 02/05/18 11:11 - History of Present Illness Initial Comments: 02/05/18 11:38 Pt is a 67 y/o lady with a significant past medical history of asthma, DM, CAD, GERD HTN, CVA (left sided weakness), cerebellar degeneration, chronic migraines presents to [facility] s/p fall at 1 am this morning. Pt states she was on her commode when she endured her fall. Pt fell on her entire left side, injuring her left face, arm, and leg. Pt states pain is 10/10 in severity and sharp in nature. This is the fourth time in three weeks pt has fallen. Pt deferred seeking medical treatment until now as her pain has been progressing. Denies chest pain, nausea, vomiting, blurred vision, hearing changes, or altered mental status. Pt was recently in [facility] for 1 month in September of this year for Asthma management per pt. 02/05/18 11:46 02/05/18 11:51 Past History - Past Medical History Allergies/Adverse Reactions: Allergies Allergy/AdvReac Type Severity Reaction Status Date / Time acetaminophen [From Vicodin] Allergy Mild Hives Verified 02/05/18 11:01 hydrocodone [From Vicodin] Allergy Mild Hives Verified 02/05/18 11:01 hydrocodone bitartrate Allergy Verified 02/05/18 11:01 [From Vicodin] oxycodone Allergy Verified 02/05/18 11:01 sulfabenzamide Allergy Verified 02/05/18 11:01 Home Medications: Ambulatory Orders Amlodipine Besylate 5 mg PO DAILY 02/05/18 Aspirin [ASA -] 81 mg PO DAILY 02/05/18 Butalb/Acetaminophen/Caffeine [Czwahi-Unbxewvs-Xdgz 50-300-40] 1 each PO TID 04/14 Escitalopram Oxalate [Lexapro -] 10 mg PO DAILY 02/05/18 Gabapentin 400 mg PO TID 02/05/18 Hydrochlorothiazide [Hctz -] 12.5 mg PO DAILY 02/05/18 Linaclotide [Linzess] 290 mcg PO DAILY 02/05/18 Lisinopril [Zestril] 2.5 mg PO DAILY 02/05/18 Magnesium Oxide 400 mg PO DAILY PRN 02/05/18 Mirtazapine 7.5 mg PO HS 02/05/18 Multivitamin [Multiple Vitamins] 1 each PO DAILY 02/05/18 Oxybutynin Chloride 5 mg PO BID 02/05/18 Pantoprazole Sodium [Protonix] 40 mg PO DAILY 02/05/18 Sennosides [Senna] 17.2 mg PO HS 02/05/18 Topiramate [Qudexy Xr] 100 mg PO HS 02/05/18 Anemia: Yes Asthma: Yes CVA: Yes COPD: No Dementia: No Diabetes: Yes Dialysis: Yes GI Disorders: Yes (STRICTURE OF ESOPHAGUS;GERD) Disorders: Yes (UROGENIC BLADDER) HTN: Yes Hypercholesterolemia: Yes Seizures: Yes (IN THE PAST) - Surgical History Orthopedic Surgery: Yes (ELBOW SURG; SPINAL AND NECK SURG) - Immunization History Immunization Up to Date: Yes - Suicide/Smoking/Psychosocial Hx Smoking History: Never smoked Have you smoked in the past 12 months: No Cigars Per Day: 0 Hx Alcohol Use: No Drug/Substance Use Hx: No Substance Use Type: None Hx Substance Use Treatment: No Review of Systems - Review of Systems Able to Perform ROS?: Yes Is the patient limited Monegasque proficient: No Respiratory: Yes: Shortness of Breath, Wheezing Integumentary: Yes: Lesions. No: Symptoms Reported, See HPI, Bruising, Change in Color, Change in Hair/Nails, Dryness, Erythema, Flushing, Lumps, Pallor, Pruritus, Rash, Sweating, Other Neurological: Yes: Headache, Weakness (residual left motor deficit 2/2 CVA ), Unsteady Gait, Ataxia *Physical Exam - Vital Signs Last Vital Signs Temp Pulse Resp BP Pulse Ox 98.9 F 89 19 117/53 98 02/05/18 11:01 02/05/18 11:01 02/05/18 11:01 02/05/18 11:01 02/05/18 11:01 - Physical Exam Comments: 02/05/18 11:43 GEN- AAOx3, NAD Neuro- Appears at baseline, strength 4/5 left side body. CN-12 intact throughout. EOMI. PERRLA. CVS- RRR, No MRG, S1 S2 RS- Dec BS at bases ABD- ND, NT, No HSM EXT- No CCE Skin- Multiple pigmented lesions over body. Psych- Normal mood, Affect. ED Treatment Course - RADIOLOGY Radiograph Interpretation: 02/05/18 13:37 CT scan of the brain without intravenous contrast Mild motion artifacts are slightly limiting this exam Since 06/27/2019, there remains moderate volume loss its more prominent in the posterior fossa with mild to moderate ventricular dilatation. No mass lesion, gross acute infarct or intracranial hemorrhage are identified. There is no shift of the midline structures. The craniocervical junction appears unremarkable Visualized paranasal sinuses and mastoid air cells are well aerated and the calvarium is intact. IMPRESSION: No significant interval change. Moderate volume loss that is more prominent in the posterior fossa without gross evidence of acute intracranial pathology Reported By: Shai Fitzpatrick MD 02/05/181307 SHANNON REED Technologist: Idris Tuttle Transcribed Date/Time: 02/05/181307 Woolen Tester: Shai Fitzpatrick Printed Date/Time: 02/05/181307 By: YINA VALENTINE 1 Medical Decision Making - Medical Decision Making 02/05/18 12:17 CT Head w/o Contrast X-RAY Left Knee and Shoulder 02/05/18 13:38 Ct Head--Negative 02/05/18 13:46 X-Ray shoulder, knee--> Both Negative. *DC/Admit/Observation/Transfer Diagnosis at time of Disposition: Fall at home - Discharge Dispostion Disposition: HOME Decision to Admit order: No - Referrals Referrals: Karey Beard MD [Primary Care Provider] - - Patient Instructions Printed Discharge Instructions: How to Prevent Falls Print Language: MAURITIAN - Post Discharge Activity
[2018-02-05] MEDS ORDERED: ACETAMINOPHEN 500 MG TABLET (FP) PO ONE ×2 (11:57→12:57)
--- NOTE | 2018-02-05 12:08 | PDOC ---
Attending Attestation - Resident Resident Name: Nikolai Arenas - ED Attending Attestation I have performed the following: I have examined & evaluated the patient, The case was reviewed & discussed with the resident, I agree w/resident's findings & plan - HPI HPI: 02/05/18 11:58 67-year-old female with history of CVA, migraines, cervical radiculopathy presents with home health aide brought in by ambulance status post fall from her commode around 1 AM. Patient was standing up from her commode when she fell forward onto her left side, did not lose consciousness, had no pre-or post lightheadedness or syncope or cardiopulmonary complaints. She called her aide, and 911 assisted the patient to her bed, she felt fine at the time so did not presents to the emergency department. Upon awakening this morning, patient had left-sided aches so she presents for evaluation. No focal headache, no vision changes, no speech change from her baseline dysarthria, some left shoulder and knee discomfort but without new motor or sensory deficit. - Physicial Exam PE: 02/05/18 11:59 Vital signs normal Well-appearing seated in stretcher 1 cm subcutaneous hematoma over the lateral left eyebrow with very superficial 5 mm abrasion, no laceration. No underlying bony tenderness or deformity. Discomfort to palpation of the proximal left humerus but baseline range of motion, no swelling or bruising, neurovascularly intact distally Discomfort to palpation of proximal left fibula, no deformity or soft tissue swelling, no joint effusion, full range of motion without improvement baseline 4+ out of 5 strength in the left upper and lower extremity. - Medical Decision Making 02/05/18 12:08 67-year-old female with history of CVA and left-sided weakness presents status post mechanical fall off commode about 11 hours ago, now with left-sided discomfort but no focal findings suggestive of fracture. Rule out TBI. CT head Left shoulder and left knee x-ray Tylenol for pain (confirm she takes this regularly at home without side effects , not a true ALLERGY) Reassess and disposition accordingly, aide at bedside
[2018-02-05] MEDS ORDERED: ACETAMINOPHEN 325 MG TABLET (FP) ONE (13:00)
== END 2018-02-05 14:00 | disposition home or self-care (01) ==
LOC: JER 10:52
DX: S00.12XA Contusion of left eyelid and periocular area, initial encounter (principal); M25.512 Pain in left shoulder; M25.562 Pain in left knee; W18.12XA Fall from or off toilet with subsequent striking against object, initial encounter; Y93.89 Activity, other specified; Y92.031 Bathroom in apartment as the place of occurrence of the external cause; Y99.8 Other external cause status; J45.909 Unspecified asthma, uncomplicated; E11.9 Type 2 diabetes mellitus without complications; I25.10 Atherosclerotic heart disease of native coronary artery without angina pectoris; I10 Essential (primary) hypertension; I69.854 Hemiplegia and hemiparesis following other cerebrovascular disease affecting left non-dominant side; G40.909 Epilepsy, unspecified, not intractable, without status epilepticus; Z86.69 Personal history of other diseases of the nervous system and sense organs; Z88.8 Allergy status to other drugs, medicaments and biological substances
CPT/HCPCS: 70450-TC; 73030-TC-LT-FY; 73560-TC-LT-FY; 99281-25

== ENCOUNTER 2018-08-17 12:35 | Emergency (ER) | payer OTHER ==
[2018-08-17 12:46] VITALS: BP 115/58; PULSE 99; TEMP 98.5; BMI 32.9
--- NOTE | 2018-08-17 13:37 | PDOC ---
*Physical Exam - Vital Signs Last Vital Signs Temp Pulse Resp BP Pulse Ox 98.5 F 99 H 115/58 L 98 08/17/18 12:43 08/17/18 12:43 08/17/18 12:43 08/17/18 12:43 Medical Decision Making - Medical Decision Making 08/17/18 13:37 67 yo F DM, HTN, CVA h/o toe pain Now reports bilateral leg pain, spreading to her thigh Right side calf pain Pt seen by Midlevel Provider under my direct supervision Ancillary studies reviewed I agree with plan as outlined by Midlevel Provider Eval for DVT 08/17/18 14:15 *DC/Admit/Observation/Transfer Diagnosis at time of Disposition: Leg pain, bilateral - Discharge Dispostion Disposition: HOME Condition at time of disposition: Stable - Referrals - Patient Instructions Printed Discharge Instructions: DI for Leg Pain Additional Instructions: Thank you for choosing [facility]. It was a pleasure taking care of you. There was no evidence of clot in your legs. Recommend you follow-up with your doctor for further evaluation of your symptoms. Return to the Emergency Department if your symptoms worsen or persist or have other concerning symptoms. - Post Discharge Activity
--- NOTE | 2018-08-17 15:33 | PDOC ---
History of Present Illness - General Chief Complaint: Pain, Acute Stated Complaint: ARCHANA LEG PAIN / ARCHANA FOOT PAIN Time Seen by Provider: 08/17/18 13:00 History Source: Patient Exam Limitations: No Limitations Past History - Past Medical History Allergies/Adverse Reactions: Allergies Allergy/AdvReac Type Severity Reaction Status Date / Time acetaminophen [From Vicodin] Allergy Mild Hives Verified 08/17/18 12:41 hydrocodone [From Vicodin] Allergy Mild Hives Verified 08/17/18 12:41 hydrocodone bitartrate Allergy Verified 08/17/18 12:41 [From Vicodin] oxycodone Allergy Verified 08/17/18 12:41 sulfabenzamide Allergy Verified 08/17/18 12:41 Home Medications: Ambulatory Orders Amlodipine Besylate 5 mg PO DAILY 02/05/18 Aspirin [ASA -] 81 mg PO DAILY 02/05/18 Butalb/Acetaminophen/Caffeine [Ywkbaz-Htmnekys-Zgfj 50-300-40] 1 each PO TID 04/14 Escitalopram Oxalate [Lexapro -] 10 mg PO DAILY 02/05/18 Gabapentin 400 mg PO TID 02/05/18 Hydrochlorothiazide [Hctz -] 12.5 mg PO DAILY 02/05/18 Linaclotide [Linzess] 290 mcg PO DAILY 02/05/18 Lisinopril [Zestril] 2.5 mg PO DAILY 02/05/18 Magnesium Oxide 400 mg PO DAILY PRN 02/05/18 Mirtazapine 7.5 mg PO HS 02/05/18 Multivitamin [Multiple Vitamins] 1 each PO DAILY 02/05/18 Oxybutynin Chloride 5 mg PO BID 02/05/18 Pantoprazole Sodium [Protonix] 40 mg PO DAILY 02/05/18 Sennosides [Senna] 17.2 mg PO HS 02/05/18 Topiramate [Qudexy Xr] 100 mg PO HS 02/05/18 Anemia: Yes Asthma: Yes CVA: Yes COPD: Yes Dementia: No Diabetes: Yes Dialysis: Yes GI Disorders: Yes (STRICTURE OF ESOPHAGUS;GERD) Disorders: Yes (UROGENIC BLADDER) HTN: Yes Hypercholesterolemia: Yes Seizures: Yes (IN THE PAST) - Surgical History Orthopedic Surgery: Yes (ELBOW SURG; SPINAL AND NECK SURG) - Immunization History Immunization Up to Date: Yes - Suicide/Smoking/Psychosocial Hx Smoking History: Never smoked Have you smoked in the past 12 months: No Cigars Per Day: 0 Hx Alcohol Use: No Drug/Substance Use Hx: No Substance Use Type: None Hx Substance Use Treatment: No *Physical Exam - Vital Signs Last Vital Signs Temp Pulse Resp BP Pulse Ox 98.5 F 99 H 115/58 L 98 08/17/18 12:43 08/17/18 12:43 08/17/18 12:43 08/17/18 12:43 - Physical Exam General Appearance: No: Apparent Distress Respiratory/Chest: positive: Lungs Clear, Normal Breath Sounds. negative: Respiratory Distress Cardiovascular: positive: Regular Rhythm, Regular Rate, S1, S2. negative: Murmur Vascular Pulses: Dorsalis-Pedis (R): 2+, Doralis-Pedis (L): 2+ Gastrointestinal/Abdominal: positive: Normal Bowel Sounds, Soft. negative: Tender, Distended, Guarding, Rebound Extremity: positive: Pedal Edema, Calf Tenderness, Other (+RLE swelling > LLE; + R calf tenderness, minimal L calf tenderness; 2+ pulses BLE, normal skin color) Integumentary: positive: Normal Color, Dry. negative: Erythema, Rash, Ecchymosis, Bruising Neurologic: positive: Alert, Normal Mood/Affect Moderate Sedation - Procedure Monitoring Vital Signs: Procedure Monitoring Vital Signs Temperature 98.5 F 08/17/18 12:43 Pulse Rate 99 H 08/17/18 12:43 Respiratory Rate Blood Pressure 115/58 L 08/17/18 12:43 O2 Sat by Pulse Oximetry (%) 98 08/17/18 12:43 ED Treatment Course - RADIOLOGY Radiology Studies Ordered: Category Date Time Status DUPLEX VASCUL US-2LEGS [US] Stat Ultrasound 08/17/18 13:30 Completed Medical Decision Making - Medical Decision Making 67 y/o F hx of HTN, asthma, DM, CVA, chronic pain syndrome, depression presents with BLE pain from yesterday. Mentions has corns along her toes which she has been following with her slipper maker but yesterday, felt pain from both feet going up to thighs. Denies fever, sob, cp, abd pain, n/v, numbness. BLE ultrasound was negative for DVT Unclear cause of pain Patient ambulating around ED in no discomfort; not suspicious for PAD given good pulses Advised f/u with her PCP 08/17/18 15:29 *DC/Admit/Observation/Transfer Diagnosis at time of Disposition: Leg pain, bilateral - Discharge Dispostion Disposition: HOME Condition at time of disposition: Stable Decision to Admit order: No - Referrals - Patient Instructions Printed Discharge Instructions: DI for Leg Pain Additional Instructions: Thank you for choosing [facility]. It was a pleasure taking care of you. There was no evidence of clot in your legs. Recommend you follow-up with your doctor for further evaluation of your symptoms. Return to the Emergency Department if your symptoms worsen or persist or have other concerning symptoms. - Post Discharge Activity
== END 2018-08-17 15:44 | disposition home or self-care (01) ==
LOC: JER 12:35
DX: M79.18 Myalgia, other site (principal); M79.652 Pain in left thigh; M79.651 Pain in right thigh; M79.675 Pain in left toe(s); M79.674 Pain in right toe(s); I10 Essential (primary) hypertension; E11.9 Type 2 diabetes mellitus without complications; J45.909 Unspecified asthma, uncomplicated; D64.9 Anemia, unspecified; Z86.73 Personal history of transient ischemic attack (TIA), and cerebral infarction without residual deficits; G89.4 Chronic pain syndrome
CPT/HCPCS: 71046-TC-FY; 73560-TC-LT-FY; 93970-TC; 99281-25